=== PATIENT | female | born 1955 | race Hispanic/Latino ===

== ENCOUNTER 2020-01-18 08:17 | Inpatient (IN) | payer MEDICARE, OTHER ==
[2020-01-18] MEDS ORDERED: Ondansetron PF 4 MG/2 ML Vial ONE ×2 (08:25→09:34)
[2020-01-18 08:58] LABS: #Basophils 0.1 thou/uL (0.0-0.2); #Eosinphils 0.2 thou/uL (0.0-0.7); #Lymphocytes 3.1 thou/uL (1.20-3.40); #Monocytes 0.6 thou/uL (0.11-0.59); #Neutrophils 10.8 thou/uL (1.40-6.50); %Basophils 0.7 % (0.0-1.0); %Eosinophils 1.2 % (0.0-10.0); %Lymphocytes 21.1 % (21.0-51.0); %Monocytes 4.1 % (0.0-10.0); %Neutrophils 72.9 % (42.0-75.0); Hemoglobin 10.9 g/dL (12.0-16.0); Mean Corpuscular HGB CONC 33.2 g/dL (32.0-36.0); Mean Corpuscular Hemoglobin 31.2 pg (27.0-31.0); Mean Corpuscular Volume 94.1 fL (78.0-98.0); Mean Platelet Volume 7.8 fL (7.4-10.4); Platelet Count 374 thou/uL (130-400); White Blood Cell (WBC) Count 14.8 thou/uL (4.8-10.8)
[2020-01-18] MEDS ORDERED: Morphine 4 MG/ML VIAL ONE (09:00)
[2020-01-18 09:02] LABS: ALT (SGPT) 8 U/L (8-55); AST (SGOT) 13 U/L (5-34); Albumin 3.6 g/dL (3.4-4.8); Alkaline Phosphatase 136 U/L (40-110); Anion Gap 16 mmol/L (10-20); BUN (Urea Nitrogen) 46 mg/dL (9.8-20.1); Bilirubin, Total 0.2 mg/dL (0.2-1.2); Calc. Creatinine Clearance 0 mL/min (70-130); Calcium 8.4 mg/dL (7.8-10.44); Carbon Dioxide 16 mmol/L (23-31); Chloride 110 mmol/L (98-107); Estimated GFR-MDRD 20; Globulin 3.4 g/dL (2.4-3.5); Glucose 249 mg/dL (80-115); Potassium 4.6 mmol/L (3.5-5.1); Sodium 137 mmol/L (136-145)
--- NOTE | 2020-01-18 09:08 | RAD ---
Exam: Chest one view HISTORY:Cough. Comparison: 01/01/2017 FINDINGS: Cardiac silhouette: Normal Aorta: Unremarkable Pulmonary vessels: Normal Costophrenic angles: Clear LUNGS: Scattered interstitial opacities. More focal opacity is noted in the right perihilar region, l ikely representing a lower lobe infiltrate. Pneumothorax: None Osseous abnormalities: None IMPRESSION: Focal opacity in the right lower lobe is suspected. 2 view chest radiograph would be bene ficial
[2020-01-18] MEDS ORDERED: Azithromycin 500 MG VIAL ONE (09:21)
[2020-01-18] MEDS ORDERED: Cefepime 1 GM VIAL ONE (09:21)
[2020-01-18 09:29] LABS: CKMB 3.8 ng/mL (0-6.6)
[2020-01-18 09:38] LABS: CK (CPK) 58 U/L (29-168); Lipase 136 U/L (8-78)
[2020-01-18] MEDS ORDERED: Enoxaparin Sodium 60 MG/0.6 ML SYRINGE ONE (09:52)
[2020-01-18] MEDS ORDERED: Aspirin Chewable 81 MG TAB ONE (09:52)
[2020-01-18] MEDS ORDERED: Metoclopramide HCl 10 MG/2 ML VIAL ONE (09:58)
[2020-01-18] MEDS ORDERED: Furosemide 40 MG/4 ML VIAL ONE (10:15)
[2020-01-18] MEDS ORDERED: Lorazepam 2 MG/ML VIAL ONE (10:15)
[2020-01-18] MEDS ORDERED: Nitroglycerin 50 MG/250 ML BOT 250 ML ONE (10:47)
[2020-01-18 10:58] LABS: Analyzer IN Cardio ER; Base Excess (BEa) -15.9 mEq/L (-2.0 to +3.0); CO2 Tension 42.4 mmHg (35.0-45.0); Calcium, Ionized (arterial) 1.16 mmol/L (1.12-1.30); Carboxyhemoglobin (COHb) 0.2 gm% (0.0-3.0); Hemoglobin (Hb) 11.4 g/dL (12.0-16.0); Potassium - ABG Lab 5.07 mmol/L (3.70-5.30)
[2020-01-18 11:03] LABS: O2 Tension (PaO2), arterial 56.7 mmHg (> 80.0)
[2020-01-18 11:04] LABS: Puncture Site RRA
[2020-01-18 11:13] LABS: SARS-CoV-2 NAA Rapid Test Not Detected (NotDetected)
[2020-01-18 11:48] LABS: Actual Bicarbonate (HCO3a) 13.2 mEq/L (22-28); Analyzer IN Cardio ER; Base Excess (BEa) -14.5 mEq/L (-2.0 to +3.0); CO2 Tension 37.4 mmHg (35.0-45.0); Calcium, Ionized (arterial) 1.14 mmol/L (1.12-1.30); Carboxyhemoglobin (COHb) 0.3 gm% (0.0-3.0); Hemoglobin (Hb) 11.6 g/dL (12.0-16.0); O2 Tension (PaO2), arterial 78.9 mmHg (> 80.0); Potassium - ABG Lab 5.29 mmol/L (3.70-5.30)
[2020-01-18 11:49] LABS: Puncture Site RRA; pH, Arterial 7.17 (7.35-7.45)
[2020-01-18] MEDS ORDERED: Rocuronium Bromide 10 MG/ML (10ML VIAL) ONE (11:52)
[2020-01-18] MEDS ORDERED: Propofol 500 MG/50 ML VIAL ONE (11:52)
[2020-01-18] MEDS ORDERED: niCARdipine 20MG In NaCl 20 MG/200 ML BAG ONE (12:32)
--- NOTE | 2020-01-18 12:41 | RAD ---
Exam: Chest one view HISTORY:Status post intubation Comparison: 01/18/2020 FINDINGS: Cardiac silhouette: Normal Aorta: Unremarkable Pulmonary vessels: Normal Costophrenic angles: Clear LUNGS: Persistent lung parenchymal opacification Lines and tubes: Interval placement of endotracheal tube terminating at the level of clavicles. Nasog astric tube terminates at the level of the gastric cardia. Pneumothorax: None Osseous abnormalities: None IMPRESSION: 1. Interval placement of endotracheal and nasogastric tube. Otherwise, no change.
[2020-01-18] MEDS ORDERED: Dextrose 50% Abboject 50 ML SYRINGE SLOW IVP PRN (13:20)
[2020-01-18] MEDS ORDERED: Nitroglycerin 50 MG/250 ML BOT 250 ML IVPB SCH (13:20)
[2020-01-18] MEDS ORDERED: HumaLOG 300 UNITS/3 ML VIAL SC PRN (13:20)
[2020-01-18] MEDS ORDERED: Dextrose 5% in Water 1,000 ML IV PRN (13:20)
[2020-01-18] MEDS ORDERED: hydrALAZINE 20 MG/ML VIAL SLOW IVP PRN (13:20)
[2020-01-18] MEDS ORDERED: Morphine 2 MG/ML VIAL SLOW IVP PRN (13:23)
[2020-01-18] MEDS ORDERED: Propofol BOLUS 1,000 MG/100 ML VIAL IV PRN (13:23)
[2020-01-18] MEDS ORDERED: Fentanyl BOLUS 250 ML IVPB PRN (13:23)
[2020-01-18] MEDS ORDERED: DISCONTINUE PREVIOUS NARCOTIC PAIN MEDICATIONS AND BENZODIAZEPINES FS SCH (13:23)
--- NOTE | 2020-01-18 13:46 | HP ---
PRIMARY CARE PHYSICIAN: Patient's primary care, she says she goes to the [facility]. She cannot remember the name of her physician. CHIEF COMPLAINT: Shortness of breath and coughing and congested. HISTORY OF PRESENT ILLNESS: Ms. Parra is a very pleasant 64-year-old female, who has a history of hypertension and diabetes mellitus. She is currently on BiPAP and therefore the history of present illness is very limited and she says that she is "real tired", but she says that she has been coughing and congested for about the past month and has been getting progressively worse. She also notes some pain in her chest. It is in the center lower part of the chest, which is worse with coughing and she says that this morning her symptoms got much worse. She says that she was having extreme trouble breathing and also noted some trouble waking up through the night with difficulty breathing and saying that for the past two nights, she has had to sleep on several different pillows. She also said that the pain in her chest started at rest. It was nonradiating and only associated with some shortness of breath. She did have some nausea and vomited once, but denies having any diarrhea. She came to the ER for evaluation, where she was found to have bilateral pulmonary infiltrates, but there were more dense infiltrates in the right base. She was found to be hypoxic on room air and also had an elevated troponin. However, there were no significant EKG changes. She was placed on BiPAP and is being admitted for further evaluation. REVIEW OF SYSTEMS: All systems are reviewed and are negative except for that mentioned in the history of present illness. PAST MEDICAL HISTORY: Significant for diabetes mellitus, chronic kidney disease, hypertension. PAST SURGICAL HISTORY: She has had her gallbladder removed. ALLERGIES: NO KNOWN DRUG ALLERGIES. SOCIAL HISTORY: She is single. She has 4 children. She says she smokes marijuana every day and she denies any alcohol use. She denies any tobacco cigarettes. Her daughter, Maribel Palomino is her surrogate decision maker and oldest daughter. She would like to be a full code. FAMILY HISTORY: No history of any heritable diseases. CURRENT MEDICATIONS: Include; 1. Sertraline 100 mg p.o. daily. 2. Lisinopril 20 mg daily. 3. Nifedipine extended release 60 mg daily. 4. Trazodone 100 mg p.o. daily. 5. Glyburide 5 mg p.o. daily. 6. Metformin 500 mg daily. PHYSICAL EXAMINATION: GENERAL: She is alert and oriented. She does appear ill. She is currently on BiPAP. She is well developed, well nourished. VITAL SIGNS: Blood pressure is 156/89, heart rate 113, respiratory rate of 24, and temperature is 98.1. HEENT: Her pupils are equal, round, and reactive. Extraocular muscles are intact. Her sclerae anicteric. NECK: There is no adenopathy. No bruits. LUNGS: She has rales at the right base. There is no wheezing. No rhonchi. CARDIOVASCULAR: Heart rate is regular, but tachycardic. There was quite a bit of ambient noise and I was not able to appreciate any murmurs, clicks, or rubs. ABDOMEN: Soft, nontender, nondistended. Positive for bowel sounds. There is no rebound. No guarding. No organomegaly. EXTREMITIES: There is no edema. No calf tenderness. No joint effusions. NEUROLOGIC: Grossly nonfocal. SKIN AND INTEGUMENT: No significant skin changes. No rash. LAB RESULTS: Sodium is 137, potassium 4.6, chloride is 110, CO2 is 16, BUN of 46, creatinine 2.4, glucose is 249. Troponin is 1.195. ProBNP is 1308. Her white blood cell count is 14.8, hemoglobin 10.9, hematocrit 32.9, platelet count is 374. She had a rapid COVID screen which was negative. On her ABG, the initial ABGs, the pH is 7.1 83.2. Repeat gas showed after being on BiPAP, pH is 7.17, pCO2 of 37, PO2 of 78.9. ASSESSMENT: 1. This is a 64-year-old female, who has a history of hypertension and diabetes, who presents to the emergency room with acute hypoxic respiratory failure likely as a result of community-acquired right lower lobe pneumonia. Her COVID screen was negative. She also has an elevated troponin as well as an elevated white blood cell count of 14.9, and she was tachycardic and therefore meets criteria for sepsis as well. She will be admitted to the ICU, started on empiric antibiotics for community-acquired pneumonia. The electric motor tester has already been consulted, and based on the slow improvement in her ABG, the plan will be to intubate the patient. Blood cultures have already been obtained. Sputum cultures will be requested. 2. Elevated troponin. I suspect this is likely the result of an NSTEMI type 2 due to demand ischemia from the pneumonia. She did have some ST-segment depressions in V3 through V6, and for this reason, we will go ahead and consult Cardiology. When she is more stable, additional studies may be warranted. In the meantime, we will check an echo and place her on Lovenox. She has already been given an aspirin in the ER. 3. Diabetes mellitus. We will go ahead and just place her on a low-dose long-acting insulin as well as a sliding scale. 4. Chronic kidney disease. We will monitor her trend in her BUN and creatinine, and if necessary consult Nephrology. We will renal dose all relevant medications. Job ID: [id number]
[2020-01-18] MEDS: HumaLOG 300 UNITS/3 ML VIAL SC PRN ×2 (14:23→16:05)
[2020-01-18] MEDS: Lorazepam 2 MG/ML VIAL SLOW IVP PRN (14:25)
[2020-01-18] MEDS: Propofol 1,000 MG/100 ML VIAL IV PRN ×3 (14:28→20:34)
--- NOTE | 2020-01-18 14:39 | CON ---
DATE OF CONSULTATION: REASON FOR CONSULTATION: Elevated troponin and abnormal EKG. Total critical care time 40 minutes. HISTORY OF PRESENT ILLNESS: Ms. Parra is an unfortunate 64-year-old woman who has not been seen by Cardiology in the past. She recently presented with increased shortness of breath. The history is obtained from the ER doctor in addition to Dr. Mcqueen's note. Her main complaint was shortness of breath, coughing and congestion. She did complain of chest pain which is worse with coughing. EKG was felt to be abnormal with inverted T-waves inferiorly and Q-waves inferiorly as well. Again , she has no previous history of underlying coronary artery disease, but does have history of diabetes mellitus and chronic kidney disease. During my arrival, patient continued to have increased shortness of breath with tachypnea and required intubation. PAST MEDICAL HISTORY: Diabetes mellitus, chronic kidney disease, hypertension. SURGICAL HISTORY: Cholecystectomy. ALLERGIES: NONE. SOCIAL HISTORY: She does have four children. She is currently single. Negative alcohol use. Positive marijuana use. HOME MEDICATIONS: Include 1. Lisinopril. 2. Sertraline. 3. Nifedipine. 4. Trazodone. 5. Glyburide. 6. Metformin. REVIEW OF SYSTEMS: Unobtainable. PHYSICAL EXAMINATION: GENERAL: She does appear older than stated age. She is currently intubated and sedated. VITAL SIGNS: Blood pressure 222/112, heart rate 112, respirations 20. NEUROLOGIC: The patient is alert and oriented x3 with no focal neurologic deficits. HEENT: Sclerae without icterus. Mouth has moist mucous membranes with normal pallor. NECK: No JVD. Carotid upstroke brisk. No bruits bilaterally. LUNGS: Clear to auscultation with unlabored respirations. BACK: No scoliosis or kyphosis. CARDIAC: Regular rate and rhythm with normal S1 and S2. No S3 or S4 noted. No significant rubs, murmurs, thrills, or gallops noted throughout the precordium. PMI is not displaced. There is no parasternal heave. ABDOMEN: Soft, nontender, nondistended. No peritoneal signs present. No hepatosplenomegaly. No abnormal striae. EXTREMITIES: 2+ femoral and 2+ dorsalis pedis pulses. No cyanosis, clubbing, or edema. SKIN: No gross abnormalities. PERTINENT LABORATORY DATA: Hemoglobin 10.9. Creatinine 2.4 with a GFR of 20, previous creatinine dated 08/21/2016 of 1.27. EKG shows normal sinus rhythm with inferior infarct, age old; ST-T wave changes suggesting ischemia, but cannot exclude inferior wall aneurysm. Peak troponin 1.1. IMPRESSION: 1. Respiratory failure. 2. Congestive heart failure with BNP of 1030. 3. Renal insufficiency. RECOMMENDATIONS: Ms. Parra's history is more suggestive of pleurisy from recent shortness of breath and cough. Her troponin is elevated and may be related to demand ischemia. At this point, she has no acute ST-T wave changes suggesting infarction. We would recommend aggressive blood pressure management given marked hypertension. We will add Cardene in addition to IV nitroglycerin. Dr. Henry has been consulted. I have discussed case with Dr. Henry. We will continue to rule out by CKs and troponins. We will recommend echo with Doppler to assess LVEF, any valvular dysfunction. ADDENDUM FU troponin of 4.0 6 hours after presentation. Matt related to demand ischemia. Treat BP and HR aggressively for now Job ID: [id number] MTDD
[2020-01-18 15:27] LABS: Critical Call Chem Troponin I 0; Troponin I 4.341 ng/mL (< 0.028)
[2020-01-18] MEDS: fentaNYL Citrate/PF 2,000 MCG in Sodium Chloride 0.9% 60 ML IV SCH (16:36)
--- NOTE | 2020-01-18 18:06 | CON ---
DATE OF CONSULTATION: 01/18/2020 HISTORY OF PRESENT ILLNESS: Ms. Parra is a woman who presented to the emergency room with chest discomfort, nausea, vomiting, shortness of breath. She is found to have severe metabolic acidosis. The nurse practitioner called me. A followup blood gas on BiPAP showed only minimal improvement in her pH, so I recommended intubation. This has been done successfully by the time I saw her. No other history is available. PAST MEDICAL HISTORY: Remarkable for diabetes, hypertension, as well as chronic kidney disease. PAST SURGICAL HISTORY: Remarkable for cholecystectomy. SOCIAL HISTORY: She smokes marijuana. Does not smoke cigarettes. Does not drink alcohol. REVIEW OF SYSTEMS: Not obtainable when I saw her. PHYSICAL EXAMINATION: GENERAL: She is extremely hypertensive when I saw her in the emergency room with blood pressure in the 240 range and a diastolic in the 140 range. She is on nitroglycerin drip. I recommended to switch to Cardene. VITAL SIGNS: She is currently afebrile. Heart rates in the 90s, respiratory rates in the teens, oximetry is 100%, blood pressure 141/64. LUNGS: Remarkable for coarse equal breath sounds. HEART: Regular rhythm. ABDOMEN: Soft and nontender. EXTREMITIES: Without clubbing, cyanosis, or edema. LABORATORY DATA: Prior to intubation, her pH was 7.17, CO2 of 37, PO2 of 79, BUN 46, and creatinine 2.4. Troponin was 1.1. BNP was 1308. White count 14.8. There manual differential. Hemoglobin is 10.9, platelets 374. Maldonado virus screen is negative. IMAGING STUDIES: Chest radiograph shows early alveolar infiltrate in the right lower lobe, diffuse increase in interstitial markings. IMPRESSION: Metabolic acidosis is likely multifactorial. There is no urinalysis to determine whether or not she has proteinuria with her diabetes. This should be done at some point. Broad antimicrobial therapy has been initiated with Rocephin and Zithromax. Sedation protocol has been started. She will need to be followed by Nephrology at some point. I would expect her creatinine to go up with blood pressure control. Discussed case with Dr. Crane. Even though her EKG is abnormal, taking her to the maintenance shop laborer might lead to irreversible renal failure. Medical management with mechanical ventilation I think is the best option at this point in time. CRITICAL CARE TIME: 30 minutes. Job ID: [id number] MTDD
[2020-01-18 18:09] LABS: Troponin I 31.747 ng/mL (< 0.028)
[2020-01-18 19:44] LABS: Prothrombin Time 13.6 sec (12.0-14.7)
[2020-01-18 19:45] LABS: PTT 22.7 sec (22.9-36.1)
[2020-01-18 20:26] LABS: Troponin I 68.154 ng/mL (< 0.028)
[2020-01-18] MEDS: Famotidine/PF 20 mg/2ml Vial SLOW IVP SCH (20:34)
[2020-01-18] MEDS: Sodium Chloride 0.9% 1,000 ML IV SCH (23:11)
[2020-01-19 04:12] LABS: #Basophils 0.1 thou/uL (0.0-0.2); #Eosinphils 0.1 thou/uL (0.0-0.7); #Lymphocytes 3.3 thou/uL (1.20-3.40); #Monocytes 0.7 thou/uL (0.11-0.59); #Neutrophils 9.8 thou/uL (1.40-6.50); %Basophils 0.4 % (0.0-1.0); %Eosinophils 0.7 % (0.0-10.0); %Lymphocytes 23.6 % (21.0-51.0); %Monocytes 4.9 % (0.0-10.0); %Neutrophils 70.4 % (42.0-75.0); Hemoglobin 9.1 g/dL (12.0-16.0); Mean Corpuscular HGB CONC 34.1 g/dL (32.0-36.0); Mean Corpuscular Hemoglobin 31.8 pg (27.0-31.0); Mean Corpuscular Volume 93.2 fL (78.0-98.0); Platelet Count 265 thou/uL (130-400); RBC Distribution Width 13.3 % (11.5-14.5); Red Blood Cell (RBC) Count 2.85 mill/uL (4.20-5.40); White Blood Cell (WBC) Count 13.8 thou/uL (4.8-10.8)
[2020-01-19 04:12] LABS: INR-International Normal Ratio 1.1; Prothrombin Time 14.4 sec (12.0-14.7)
[2020-01-19 04:13] LABS: PTT 69.8 sec (22.9-36.1)
[2020-01-19 04:28] LABS: Anion Gap 15 mmol/L (10-20); BUN (Urea Nitrogen) 50 mg/dL (9.8-20.1); Calc. Creatinine Clearance 19 mL/min (70-130); Calcium 7.8 mg/dL (7.8-10.44); Carbon Dioxide 13 mmol/L (23-31); Chloride 115 mmol/L (98-107); Estimated GFR-MDRD 19; Glucose 89 mg/dL (80-115); Potassium 4.3 mmol/L (3.5-5.1); Sodium 139 mmol/L (136-145)
--- NOTE | 2020-01-19 08:01 | RAD ---
Exam: Chest one view HISTORY:Status post intubation. Comparison: 01/18/2020 FINDINGS: Lines and tubes: Stable endotracheal and nasogastric tube Cardiac silhouette: Normal Aorta: Unremarkable Pulmonary vessels: Normal Costophrenic angles: Clear LUNGS: Persistent lung parenchymal opacification. Pneumothorax: None Osseous abnormalities: No significant interval change IMPRESSION: No acute cardiopulmonary process.
[2020-01-19] MEDS: Sodium Chloride 0.9% 1,000 ML IV SCH (08:06)
--- NOTE | 2020-01-19 08:34 | PRG ---
DATE OF SERVICE: 01/19/2020 SUBJECTIVE: Irina Parra remains mechanically ventilated, sedated. OBJECTIVE: VITAL SIGNS: Heart rate is in the 60s, blood pressure 113/65, respiratory rate is 24. LUNGS: Remarkable for coarse equal breath sounds. HEART: Regular rhythm. ABDOMEN: Soft. EXTREMITIES: Without edema. LABORATORY DATA: White count 13.8, hemoglobin 9.1, and platelets 265. Sodium 139, potassium 4.3, chloride 115, bicarb 13, BUN 50, and creatinine 2.52, it was 2.40 yesterday. Troponins gone up to 68. IMPRESSION: 1. Pneumonia. 2. Respiratory failure. 3. Myocardial infarction by troponin. 4. Accelerated hypertension yesterday with improved blood pressure today. 5. Acute on chronic kidney disease. 6. Chest radiograph today more clearly shows her infiltrate. 7. There is no blood gas reported yet. We will review this. Critical care time 30 min. Job ID: [id number] MTDD
--- NOTE | 2020-01-19 08:41 | PDOC.HOSPP ---
- Subjective Encounter Date: 01/19/20 Encounter Time: 08:40 Subjective: Ms. Parra was seen today in follow-up of respiratory failure and sepsis. She is intubated. She will squeeze your hand on command. - Objective Vital Signs & Weight: Vital Signs (12 hours) Temp Pulse Resp BP 01/19/20 06:59 63 113/65 01/19/20 06:17 24 H 01/19/20 04:00 21 H 01/19/20 03:00 97.9 F Weight Admit Weight 121 lb 14.65 oz Weight 121 lb 14.65 oz Most Recent Monitor Data Heart Rate from ECG 71 NIBP 154/86 NIBP BP-Mean 108 Respiration from ECG 24 SpO2 100 I&O: 01/18/20 01/19/20 01/20/20 06:59 06:59 06:59 Intake Total 1078 Output Total 1060 92 Balance 18 -92 Result Diagrams: 01/19/20 03:36 01/19/20 03:36 Hospitalist ROS - Medication Medications: Active Medications Generic Name Dose Route Start Last Admin Trade Name Freq PRN Reason Stop Dose Admin Famotidine 20 mg 01/18/20 21:00 01/18/20 20:34 Pepcid SLOW IVP 20 mg 2100 ALEJANDRA Administration Fentanyl Citrate 2,000 mcg/ 100 mls @ 0 mls/hr 01/18/20 13:23 01/18/20 16:36 Sodium Chloride IV 02/17/20 13:23 100 mls INF ALEJANDRA Administration Protocol Per Protocol Insulin Human Lispro 0 units 01/18/20 13:20 01/18/20 16:05 Humalog SC 8 unit .MODERATE SLIDING SC PRN Administration Moderate Correctional Scale Lorazepam 2 mg 01/18/20 13:23 01/18/20 14:25 Ativan SLOW IVP 02/17/20 13:23 2 mg Q1H PRN Administration Breakthrough agitation Propofol 1,000 mg 01/18/20 13:23 01/18/20 20:34 Diprivan IV 02/17/20 13:23 1,000 mg INF PRN Administration TO ACHIEVE GOAL RASS Protocol - Exam Eye: PERRL, anicteric sclera Heart: RRR, no murmur, no gallops, no rubs, normal peripheral pulses Respiratory: rales (rales at the bases, and coarse breath sounds) Gastrointestinal: soft, non-tender, non-distended, normal bowel sounds, no palpable masses Extremities: no cyanosis, no clubbing, 1+ LE edema Hosp A/P (1) Acute respiratory failure with hypoxemia Code(s): J96.01 - ACUTE RESPIRATORY FAILURE WITH HYPOXIA Status: Acute (2) Septic shock Code(s): A41.9 - SEPSIS, UNSPECIFIED ORGANISM; R65.21 - SEVERE SEPSIS WITH SEPTIC SHOCK Status: Acute (3) Pneumonia Code(s): J18.9 - PNEUMONIA, UNSPECIFIED ORGANISM Status: Acute (4) Chronic kidney disease, stage 4 (severe) Code(s): N18.4 - CHRONIC KIDNEY DISEASE, STAGE 4 (SEVERE) Status: Chronic (5) Diabetes mellitus type 2 in nonobese Code(s): E11.9 - TYPE 2 DIABETES MELLITUS WITHOUT COMPLICATIONS Status: Chronic (6) Hypertension Code(s): I10 - ESSENTIAL (PRIMARY) HYPERTENSION Status: Chronic (7) Metabolic acidosis Code(s): E87.2 - ACIDOSIS Status: Acute - Plan * Acute respiratory failure with hypoxemia- continue IV antibiotics, and vent support as per PCCM * Elevated troponins- this may be due to demand ischemia, however the level continues to rise- ECHO is being done now and await Cardiology input * Continue Heparin drip * DM- blood glucose is stable- continue SSI * Metabolic acidosis- due to sepsis- will change to Bicarb drip, given the renal insufficiency as well *
--- NOTE | 2020-01-19 08:55 | PDOC.EVN ---
Event Note - Event Note Event Note: The patient's arrived. I explained his clinicall condition. She made the desicion that she would not want him to be a full code at this time, and would not want chest compressions ect. We will change his code status to DNR. Palliative care and Pastoral Care has been consulted.
[2020-01-19] MEDS ORDERED: Prevnar 13-Val Conj/PF 0.5 ML SYRINGE IM ONE (09:00)
[2020-01-19] MEDS ORDERED: Enoxaparin Sodium 40 MG/0.4 ML SYRINGE SC SCH (09:00)
[2020-01-19] MEDS: cefTRIAXone\\ROCEPHIN 1 GM in Sodium Chloride 0.9% 100 ML IVPB SCH (09:49)
[2020-01-19] MEDS: Propofol 1,000 MG/100 ML VIAL IV PRN (11:23)
[2020-01-19] MEDS: Azithromycin 500 MG in Sodium Chloride 0.9% 250 ML 250 ML IVPB SCH (11:26)
--- NOTE | 2020-01-19 15:16 | CON ---
DATE OF CONSULTATION: 01/19/2020 TOTAL CRITICAL CARE TIME: 35 minutes. SUBJECTIVE: Ms. Parra is currently intubated and sedated. She does awaken to voice. She is off IV blood pressure medications. She required IV nitroglycerin in addition to Cardene for blood pressure support yesterday. Blood pressure was in the 200s/120s. Heart rate was also in the one teens. EKG at that time did show Q-waves inferiorly with inverted T-waves noted inferiorly. Followup EKG once her blood pressure and heart rate were stable did show resolution. She does have Q-waves noted inferiorly. OBJECTIVE: VITAL SIGNS: Blood pressure 113/62, pulse 64, and temperature afebrile. LUNGS: Minimal crackles bilaterally. HEART: Regular rate and rhythm. ABDOMEN: Soft, nontender, and nondistended. EXTREMITIES: No edema. PERTINENT LABORATORY DATA: Hemoglobin 9.1. Peak troponin 68. IMPRESSION: 1. Pneumonia. 2. Non-Q-wave myocardial infarction. 3. Diabetes mellitus. 4. Respiratory failure. RECOMMENDATIONS: The patient did have marked increase in troponin. This may be due to demand ischemia versus unstable plaque. Her EKG was not consistent with acute VA. Based on her symptoms from Dr. Mcqueen's note, her symptoms were felt to be pleuritic. At this point, would continue with conservative therapy. She is currently on heparin in addition to nitroglycerin and aspirin. Certainly, if angiography was performed yesterday or even today with a GFR of 19, she would likely develop a worsening renal function and possible renal failure. Given that she is stable, we will continue current course. Job ID: [id number]
[2020-01-19] MEDS: Lorazepam 2 MG/ML VIAL SLOW IVP PRN (17:49)
[2020-01-19] MEDS: fentaNYL Citrate/PF 2,000 MCG in Sodium Chloride 0.9% 60 ML IV SCH (18:35)
[2020-01-20 04:19] LABS: Eosinophils 1 % (0-10); Hemoglobin 9.1 g/dL (12.0-16.0); Lymphocytes 31 % (21-51); MDiff Complete? YES; Mean Corpuscular HGB CONC 33.9 g/dL (32.0-36.0); Mean Corpuscular Hemoglobin 31.7 pg (27.0-31.0); Mean Corpuscular Volume 93.5 fL (78.0-98.0); Mean Platelet Volume 7.7 fL (7.4-10.4); Neutrophil 68 % (42-75); Platelet Count 273 thou/uL (130-400); RBC Distribution Width 13.3 % (11.5-14.5); Red Blood Cell (RBC) Count 2.86 mill/uL (4.20-5.40); White Blood Cell (WBC) Count 9.4 thou/uL (4.8-10.8)
[2020-01-20 04:45] LABS: Anion Gap 15 mmol/L (10-20); BUN (Urea Nitrogen) 43 mg/dL (9.8-20.1); Calc. Creatinine Clearance 18 mL/min (70-130); Calcium 8.1 mg/dL (7.8-10.44); Carbon Dioxide 13 mmol/L (23-31); Chloride 114 mmol/L (98-107); Estimated GFR-MDRD 17; Glucose 119 mg/dL (80-115); Potassium 3.9 mmol/L (3.5-5.1); Sodium 138 mmol/L (136-145)
[2020-01-20] MEDS: cefTRIAXone\\ROCEPHIN 1 GM in Sodium Chloride 0.9% 100 ML IVPB SCH (07:26)
--- NOTE | 2020-01-20 07:26 | RAD ---
CHEST 1 VIEW: INDICATION: History of pneumonia and intubation. COMPARISON: Prior exam dated 01/19/2020. IMPRESSION: Right lower lobe pneumonia, intubation, and gastric catheter placement unchanged. No pneumothorax is evident. POS: BH
[2020-01-20] MEDS: Famotidine/PF 20 mg/2ml Vial SLOW IVP SCH ×3 (07:28→20:41)
[2020-01-20 08:04] LABS: Base Excess (BEa) -7.5 mEq/L (-2.0 to +3.0); Calcium, Ionized (arterial) 1.14 mmol/L (1.12-1.30); Carboxyhemoglobin (COHb) 0.2 gm% (0.0-3.0); Hemoglobin (Hb) 10.6 g/dL (12.0-16.0); O2 Tension (PaO2), arterial 101.2 mmHg (> 80.0); Potassium - ABG Lab 3.77 mmol/L (3.70-5.30); pH, Arterial 7.53 (7.35-7.45)
--- NOTE | 2020-01-20 08:11 | PDOC.HOSPP ---
- Subjective Encounter Date: 01/20/20 Encounter Time: 08:09 Subjective: Ms. Parra was seen today in follow-up of respiratory failure. She is intubated and sedated. - Objective Vital Signs & Weight: Vital Signs (12 hours) Temp Pulse BP Pulse Ox 01/20/20 07:47 69 144/74 H 01/20/20 07:00 98.8 F 01/20/20 06:59 100 01/20/20 02:48 65 122/67 Weight Admit Weight 121 lb 14.656 oz Weight 121 lb 14.65 oz Most Recent Monitor Data Heart Rate from ECG 67 NIBP 128/71 NIBP BP-Mean 90 Respiration from ECG 24 SpO2 100 I&O: 01/19/20 01/20/20 01/21/20 06:59 06:59 06:59 Intake Total 1078 992 328 Output Total 1060 382 35 Balance 18 610 293 Result Diagrams: 01/20/20 03:19 01/20/20 03:19 Additional Labs: Accuchecks 01/19/20 01/18/20 01/18/20 18:42 20:56 16:09 POC Glucose 113 H 118 H 315 H 01/18/20 14:24 POC Glucose 402 H Hospitalist ROS - Medication Medications: Active Medications Generic Name Dose Route Start Last Admin Trade Name Freq PRN Reason Stop Dose Admin Famotidine 20 mg 01/18/20 21:00 01/20/20 07:28 Pepcid SLOW IVP Not Given 2100 ALEJANDRA Azithromycin 500 mg/ Sodium 250 mls @ 250 mls/hr 01/19/20 10:00 01/19/20 11: 26 Chloride IVPB 250 mls 1000 ALEJANDRA Administration Ceftriaxone Sodium 1 gm/ 100 mls @ 200 mls/hr 01/19/20 09:00 01/20/20 07:26 Sodium Chloride IVPB 100 mls 0900 ALEJANDRA Administration Fentanyl Citrate 2,000 mcg/ 100 mls @ 0 mls/hr 01/18/20 13:23 01/19/20 18:35 Sodium Chloride IV 02/17/20 13:23 100 mls INF ALEJANDRA Administration Protocol Per Protocol Insulin Human Lispro 0 units 01/18/20 13:20 01/18/20 16:05 Humalog SC 8 unit .MODERATE SLIDING SC PRN Administration Moderate Correctional Scale Lorazepam 2 mg 01/18/20 13:23 01/19/20 17:49 Ativan SLOW IVP 02/17/20 13:23 2 mg Q1H PRN Administration Breakthrough agitation Propofol 1,000 mg 01/18/20 13:23 01/19/20 11:23 Diprivan IV 02/17/20 13:23 1,000 mg INF PRN Administration TO ACHIEVE GOAL RASS Protocol - Exam Eye: PERRL, anicteric sclera Heart: RRR, no murmur, no gallops, no rubs, normal peripheral pulses Respiratory: rales (at the bases and coarse breath sounds) Gastrointestinal: soft, normal bowel sounds Extremities: no cyanosis, 1+ LE edema (in the upper extremities and lower extremities) Hosp A/P (1) Acute respiratory failure with hypoxemia Code(s): J96.01 - ACUTE RESPIRATORY FAILURE WITH HYPOXIA Status: Acute (2) Septic shock Code(s): A41.9 - SEPSIS, UNSPECIFIED ORGANISM; R65.21 - SEVERE SEPSIS WITH SEPTIC SHOCK Status: Acute (3) Pneumonia Code(s): J18.9 - PNEUMONIA, UNSPECIFIED ORGANISM Status: Acute (4) Chronic kidney disease, stage 4 (severe) Code(s): N18.4 - CHRONIC KIDNEY DISEASE, STAGE 4 (SEVERE) Status: Chronic (5) Diabetes mellitus type 2 in nonobese Code(s): E11.9 - TYPE 2 DIABETES MELLITUS WITHOUT COMPLICATIONS Status: Chronic (6) Hypertension Code(s): I10 - ESSENTIAL (PRIMARY) HYPERTENSION Status: Chronic (7) Metabolic acidosis Code(s): E87.2 - ACIDOSIS Status: Acute (8) NSTEMI (non-ST elevated myocardial infarction) Code(s): I21.4 - NON-ST ELEVATION (NSTEMI) MYOCARDIAL INFARCTION Status: Acute - Plan * Acute respiratory failure with hypoxemia and sepsis- continueRocephin and Azithromycin * Elevated troponins- felt to be demand ischemia- Echo is pending * Continue Heparin drip and Nitro drip * DM- blood glucose is stable- continue SSI * Metabolic acidosis- due to sepsis- continue Bicatb drip, and will consult Nephrology given the acute on chronic kidney injury * Acute on chronic kidney injury- likely from sepsis- will consult Nephrology to help manage * HTN- blood pressure has improved * Further recommendations per PCCM and Cardiology
[2020-01-20] MEDS: Sodium Bicarbonate 150 MEQ in Dextrose 5% in Water 1,000 ML IV SCH ×2 (08:44→20:36)
[2020-01-20 09:09] LABS: Creatinine, Urine 70.46 mg/dL (47-110)
[2020-01-20] MEDS: Azithromycin 500 MG in Sodium Chloride 0.9% 250 ML 250 ML IVPB SCH (09:16)
[2020-01-20] MEDS: Lorazepam 2 MG/ML VIAL SLOW IVP PRN (09:44)
--- NOTE | 2020-01-20 10:28 | ULT ---
RENAL ULTRASOUND HISTORY: Renal failure COMPARISON: CT of the abdomen and pelvis dated November 08, 2014 FINDINGS: Right Kidney: Size: The right kidney measured 12.3 x 4.7 x 5.2 cm with a right renal cortical thickness of 1.4 cm Abnormality: Normal cortical echotexture. No hydronephrosis. Left Kidney: Size: The left kidney measured 9.3 x 4.8 x 4.7 cm with a left renal cortical thickness of 1.8 cm Abnormality: Normal cortical echotexture. No hydronephrosis Urinary bladder: Neal catheter is seen within a decompressed bladder. IMPRESSION: No hydronephrosis.
[2020-01-20 10:53] LABS: Puncture Site LRA
--- NOTE | 2020-01-20 11:07 | CON ---
DATE OF CONSULTATION: HISTORY OF PRESENT ILLNESS: Ms. Parra is a 64-year-old female, admitted for acute respiratory failure. She was found to have pneumonia. She was ruled out for COVID-19. We are now being consulted for her acute kidney injury/chronic renal failure. Of interest, urinalysis did show proteinuria with her. Review of systems currently not obtainable since the patient is intubated and sedated. However, review of the history shows that she did complain of shortness of breath. PAST MEDICAL HISTORY: Includes; 1. Type-2 diabetes mellitus. 2. Chronic renal failure. 3. History of previous pneumonia. PAST SURGICAL HISTORY: Includes history of cholecystectomy. MEDICATIONS: 1. Azithromycin 500 mg IV daily. 2. Ceftriaxone 1 g IV daily. 3. Isotonic bicarbonate at 75 mL/hr. 4. Famotidine 20 mg IV daily. 5. Fentanyl as directed. 6. The patient is currently on heparin drip. SOCIAL HISTORY: The patient is single, 4 children. She smokes marijuana every day, but denies any alcohol use. She denies any IV drug use. Her surrogate decision maker is her daughter, Maribel Palomino. FAMILY HISTORY: No family history of ESRD. ALLERGIES: NONE. TRAUMA: None. IMMUNIZATION: Up-to-date. HOSPITALIZATIONS: Please see past medical history. PHYSICAL EXAMINATION: VITAL SIGNS: Blood pressure 153/79, heart rate 67, respiratory rate 24, O2 saturation 100%. GENERAL: The patient is sedated, intubated, on ventilator support. SKIN: Adequate turgor. HEENT: Slightly pale conjunctivae. Anicteric sclerae. No neck mass. No carotid bruits. No JVD. CHEST: No deformities. LUNGS: Decreased breath sounds. HEART: Normal sinus rhythm. No murmur. No gallops. No rubs. ABDOMEN: Globular, soft, nontender. No masses. EXTREMITIES: No edema. No deformities. LABORATORY DATA: Laboratories of January 20, 2020; white count 9.4, hemoglobin 9.1, hematocrit 26.8. Sodium 138, potassium 3.9, chloride 114, carbon dioxide 13, BUN 43, creatinine 2.79, GFR 17 mL/minute, glucose 119, calcium 8.1. Troponin-I significantly elevated. Cardiac echo pending. Renal ultrasound pending. Urinalysis shows specific gravity 1.016 with protein of 100, RBCs 7-10, WBCs 7- 10, no pigmented granular cast. ASSESSMENT AND PLAN: 1. Acute kidney injury on top of her chronic renal failure, possibility of a hemodynamically-mediated renal dysfunction. Possibility that she may simply be volume depleted. Currently, on isotonic bicarbonate, which will increase from 75 to 150 mL/hr. In addition, she does have proteinuria, which may suggest underlying diabetic nephropathy. Furthermore, the patient was taking lisinopril prior to the admission and this could be playing a factor in the prerenal azotemia. Agree with conservative management. There is no indication for any dialytic intervention. We are awaiting renal ultrasound. In addition, we will be quantifying the patient's protein excretion by ordering a protein-creatinine ratio. 2. Elevated troponin-I - the patient has NSTEMI. Cardiology is following. 3. Pneumonia/acute respiratory failure, on IV antibiotics. Currently, on ventilator support. Overall, prognosis remains guarded. Job ID: [id number] MTDD
[2020-01-20] MEDS: Propofol 1,000 MG/100 ML VIAL IV PRN ×3 (12:37→20:40)
--- NOTE | 2020-01-20 14:03 | PRG ---
DATE OF SERVICE: 01/20/2020 SUBJECTIVE: Ms. Parra is currently intubated and sedated. She is currently on no IV medicines for blood pressure support. Nephrology has been consulted due to worsening renal function. Chest x-ray did confirm a right lower lobe pneumonia. Overall, LVEF does appear moderately diminished. OBJECTIVE: VITAL SIGNS: Blood pressure 123/74, pulse 60, temperature afebrile. LUNGS: Decreased breath sounds on right versus left. HEART: Regular rate and rhythm. ABDOMEN: Soft, nontender, nondistended. EXTREMITIES: No edema. PERTINENT LABORATORY DATA: Hemoglobin 9.1, creatinine up to 2.75 from 2.52. IMPRESSION: 1. Respiratory failure. 2. Pneumonia. 3. Renal insufficiency. 4. Non-Q-wave myocardial infarction. RECOMMENDATIONS: Ms. Parra's elevated troponin likely related to demand ischemia. She has not had been revascularized in the past. This is less likely to be from an unstable plaque in the primary source. Continue supportive care. Continue heparin overnight and we will discontinue in a.m. Add low-dose Coreg. Avoid HA inhibitor therapy and ARB due to renal insufficiency. May need hydralazine/Imdur if needed. Add aspirin 81 q.a.m. Job ID: [id number]
--- NOTE | 2020-01-20 17:43 | PRG ---
DATE OF SERVICE: 01/20/2020 SUBJECTIVE: Fidel remains sedated, mechanical ventilation. OBJECTIVE: VITAL SIGNS: She is afebrile. Heart rate 63, blood pressure 131/68, respiratory rate 16. LUNGS: Clear anteriorly. HEART: Regular rhythm. ABDOMEN: Soft. LABORATORY DATA: Chest radiograph reviewed by me shows persistence of a right infrahilar alveolar infiltrate. White count 9.4, hemoglobin 9.1, platelets 273. Sodium 138, potassium 3.9, chloride 114, bicarb 13, BUN 43, creatinine 2.75. IMPRESSION: 1. Pneumonia. 2. Respiratory failure. 3. Aiyiz-vq-afdzsel kidney disease. 4. Myocardial infarction. She will continue with ventilatory support. May be able to consider a spontaneous breathing trial tomorrow. CRITICAL CARE TIME: 30 minutes. Job ID: [id number]
[2020-01-20] MEDS: Carvedilol 3.125 MG TAB PO SCH (20:40)
[2020-01-21] MEDS: Sodium Bicarbonate 150 MEQ in Dextrose 5% in Water 1,000 ML IV SCH (00:21)
[2020-01-21 06:42] LABS: Hemoglobin 9.8 g/dL (12.0-16.0); Mean Corpuscular HGB CONC 32.9 g/dL (32.0-36.0); Mean Corpuscular Hemoglobin 31.9 pg (27.0-31.0); Mean Corpuscular Volume 97.1 fL (78.0-98.0); Mean Platelet Volume 7.9 fL (7.4-10.4); Platelet Count 272 thou/uL (130-400); RBC Distribution Width 13.3 % (11.5-14.5); Red Blood Cell (RBC) Count 3.08 mill/uL (4.20-5.40); White Blood Cell (WBC) Count 9.4 thou/uL (4.8-10.8)
[2020-01-21 06:58] LABS: Anion Gap 15 mmol/L (10-20); BUN (Urea Nitrogen) 32 mg/dL (9.8-20.1); Calc. Creatinine Clearance 18 mL/min (70-130); Calcium 8.3 mg/dL (7.8-10.44); Carbon Dioxide 16 mmol/L (23-31); Chloride 111 mmol/L (98-107); Estimated GFR-MDRD 17; Glucose 156 mg/dL (80-115); Potassium 3.9 mmol/L (3.5-5.1); Sodium 138 mmol/L (136-145)
[2020-01-21 07:32] LABS: Eosinophils 1 % (0-10); Lymphocytes 15 % (21-51); MDiff Complete? YES; Monocytes 3 % (0-10); Neutrophil 81 % (42-75); Platelet Morphology Comment Appears Adequate; Polychromasia SLIGHT = 2-3 cells (100X) (0-2/hpf)
[2020-01-21 07:56] LABS: Actual Bicarbonate (HCO3a) 19.2 mEq/L (22-28); Base Excess (BEa) -3.6 mEq/L (-2.0 to +3.0); CO2 Tension 27.9 mmHg (35.0-45.0); Calcium, Ionized (arterial) 1.18 mmol/L (1.12-1.30); Carboxyhemoglobin (COHb) 0.3 gm% (0.0-3.0); Potassium - ABG Lab 3.63 mmol/L (3.70-5.30); pH, Arterial 7.46 (7.35-7.45)
--- NOTE | 2020-01-21 07:58 | RAD ---
XR Chest 1 View Portable History: Ventilated patient Comparison: Radiograph January 20, 2020 Findings: NG tube tip in good position below the clavicles. Enteric tube tip side port at the gastric body. Right middle lobe airspace opacity is similar. Small right effusion. Cardiac silhouette is similar. Impression: Similar examination of the chest.
--- NOTE | 2020-01-21 08:40 | PDOC.HOSPP ---
- Subjective Encounter Date: 01/21/20 Encounter Time: 08:38 Subjective: Ms. Parra was seen today in follow-up of respiratory failure. She is intubated, but sedation has been reduced, and she is awake and following commands. - Objective Vital Signs & Weight: Vital Signs (12 hours) Temp Pulse Resp BP Pulse Ox 01/21/20 07:45 118 H 173/91 H 01/21/20 07:36 14 100 01/21/20 07:00 98.7 F 01/21/20 03:00 97.9 F 01/21/20 02:37 65 141/73 H 01/21/20 00:37 71 01/20/20 23:00 97.9 F 01/20/20 22:19 65 Weight Admit Weight 121 lb 14.656 oz Weight 121 lb 14.65 oz Most Recent Monitor Data Heart Rate from ECG 105 NIBP 190/93 NIBP BP-Mean 125 Respiration from ECG 9 SpO2 100 I&O: 01/20/20 01/21/20 01/22/20 06:59 06:59 06:59 Intake Total 664 2641 Output Total 382 1330 325 Balance 282 1311 -325 Result Diagrams: 01/21/20 06:28 01/21/20 06:28 Hospitalist ROS - Medication Medications: Active Medications Generic Name Dose Route Start Last Admin Trade Name Freq PRN Reason Stop Dose Admin Carvedilol 3.125 mg 01/20/20 21:00 01/20/20 20:40 Coreg PO 3.125 mg BID ALEJANDRA Administration Famotidine 20 mg 01/20/20 21:00 01/20/20 20:41 Pepcid SLOW IVP 20 mg 2100 ALEJANDRA Administration Azithromycin 500 mg/ Sodium 250 mls @ 250 mls/hr 01/19/20 10:00 01/20/20 09: 16 Chloride IVPB 250 mls 1000 ALEJANDRA Administration Ceftriaxone Sodium 1 gm/ 100 mls @ 200 mls/hr 01/19/20 09:00 01/20/20 07:26 Sodium Chloride IVPB 100 mls 0900 ALEJANDRA Administration Fentanyl Citrate 2,000 mcg/ 100 mls @ 0 mls/hr 01/18/20 13:23 01/19/20 18:35 Sodium Chloride IV 02/17/20 13:23 100 mls INF ALEJANDRA Administration Protocol Per Protocol Insulin Human Lispro 0 units 01/18/20 13:20 01/18/20 16:05 Humalog SC 8 unit .MODERATE SLIDING SC PRN Administration Moderate Correctional Scale Lorazepam 2 mg 01/18/20 13:23 01/20/20 09:44 Ativan SLOW IVP 02/17/20 13:23 2 mg Q1H PRN Administration Breakthrough agitation Propofol 1,000 mg 01/18/20 13:23 01/20/20 20:40 Diprivan IV 02/17/20 13:23 1,000 mg INF PRN Administration TO ACHIEVE GOAL RASS Protocol - Exam Eye: PERRL, anicteric sclera Heart: RRR, no murmur, no gallops, no rubs, normal peripheral pulses Respiratory: CTAB (+ rhonchi bilaterally) Gastrointestinal: soft, non-tender, non-distended, normal bowel sounds Extremities: 1+ LE edema (edema in both upper and lower extremities) Hosp A/P (1) Acute respiratory failure with hypoxemia Code(s): J96.01 - ACUTE RESPIRATORY FAILURE WITH HYPOXIA Status: Acute (2) Septic shock Code(s): A41.9 - SEPSIS, UNSPECIFIED ORGANISM; R65.21 - SEVERE SEPSIS WITH SEPTIC SHOCK Status: Acute (3) Pneumonia Code(s): J18.9 - PNEUMONIA, UNSPECIFIED ORGANISM Status: Acute (4) Chronic kidney disease, stage 4 (severe) Code(s): N18.4 - CHRONIC KIDNEY DISEASE, STAGE 4 (SEVERE) Status: Chronic (5) Diabetes mellitus type 2 in nonobese Code(s): E11.9 - TYPE 2 DIABETES MELLITUS WITHOUT COMPLICATIONS Status: Chronic (6) Hypertension Code(s): I10 - ESSENTIAL (PRIMARY) HYPERTENSION Status: Chronic (7) Metabolic acidosis Code(s): E87.2 - ACIDOSIS Status: Acute (8) NSTEMI (non-ST elevated myocardial infarction) Code(s): I21.4 - NON-ST ELEVATION (NSTEMI) MYOCARDIAL INFARCTION Status: Acute - Plan * Acute respiratory failure with hypoxemia and sepsis- continue Rocephin and Azithromycin * Elevated troponins- NSTEMI type 2 likely- awaiting Echo * Continue Heparin drip and Nitro drip * DM- blood glucose is stable- continue SSI * Acute on chronic kidney injury- nephrology input appreciated- renal function is leveling off * Metabolic acidosis- stable * HTN- blood pressure is labile today- likely due to reduction in sedation * Possible wean from the ventilator soon
[2020-01-21] MEDS: Propofol 1,000 MG/100 ML VIAL IV PRN (09:32)
[2020-01-21] MEDS: Aspirin 81 mg Enteric Coated Tablet PO SCH (09:33)
[2020-01-21] MEDS: Heparin 25,000 units/D5W 500 ML IV SCH (09:33)
[2020-01-21] MEDS: Carvedilol 3.125 MG TAB PO SCH (09:33)
[2020-01-21] MEDS: cefTRIAXone\\ROCEPHIN 1 GM in Sodium Chloride 0.9% 100 ML IVPB SCH (09:40)
[2020-01-21] MEDS: Azithromycin 500 MG in Sodium Chloride 0.9% 250 ML 250 ML IVPB SCH (10:21)
--- NOTE | 2020-01-21 10:23 | PRG ---
DATE OF SERVICE: 01/21/2020 SUBJECTIVE: Ms. Parra is a 64-year-old female, who was admitted for acute respiratory failure secondary to pneumonia. She was also ruled out for COVID-19. In addition, the patient had a cardiac echo, which showed decreased ejection fraction. Troponin I is noted to be elevated. Cardiology is following. We are seeing this patient for the acute kidney injury. Evaluation suggests she may simply have a hemodynamically-mediated renal dysfunction on top of her chronic renal failure from diabetic nephropathy. She does have significant proteinuria of at least 3.4 g per day. No acute event. OBJECTIVE: VITAL SIGNS: Blood pressure is 190/93, heart rate 105, respiratory rate 13, and O2 saturation 100%. GENERAL: The patient is arousable, intubated on ventilator support. SKIN: Adequate turgor. HEENT: Pinkish conjunctivae. Anicteric sclerae. NECK: No neck mass. No carotid bruits. No JVD. CHEST: No deformities. LUNGS: Decreased breath sounds. HEART: Normal sinus rhythm. No murmur. No gallops. No rubs. ABDOMEN: Globular, soft, and nontender. No masses. EXTREMITIES: No edema. No deformities. MEDICATIONS: Medications of January 21, 2020, were reviewed. LABORATORY DATA: Laboratories of January 21, 2020, white count 9.4 and hemoglobin 9.8. Sodium 138, potassium 3.9, chloride 111, carbon dioxide 16, BUN 32, creatinine 2.73, GFR 17 mL/minute, glucose 156, and calcium 8.3. January 21, 2020; cardiac echo showed EF of 30% to 35%. In addition, there is also diastolic dysfunction. Chest x-ray of January 21, 2020, showed right middle lobe airspace opacity. Urinalysis pending. Hemoglobin 9.8. ASSESSMENT AND PLAN: 1. Acute kidney injury on top of chronic renal failure, consider hemodynamically-mediated renal dysfunction on top of her chronic renal failure. The patient received IV hydration yesterday. Currently placed on hold due to the decreased ejection fraction. 2. Pneumonia, currently on IV antibiotics. 3. Chronic renal failure - she does show significant proteinuria - protein-creatinine ratio is 3.4 - suggestive of 3.4 g of protein spillage. Most likely from underlying diabetic nephropathy. No indication for any dialytic intervention. 4. Elevated troponin I/decreased ejection fraction. Cardiology is following. Consideration for demand ischemia was being considered by Cardiology. 5. Acute respiratory failure. For eventual extubation today. ADDENDUM: Repeat urinalysis. Job ID: [id number]
[2020-01-21 10:40] LABS: ALV-art Gradient 98.025 (0-20); Puncture Site LRA
[2020-01-21 11:42] LABS: Bilirubin Negative (Negative); Blood, Urine 1+ (Negative); Clarity Clear (Clear); Glucose, Urine (Dipstick) 50 mg/dL (Negative); Ketone, Urine Negative (Negative); Leukocyte 25 Leu/uL (Negative); Nitrite Negative (Negative); Protein, Urine (Dipstick) 100 mg/dL (Neg-Trace); Specific Gravity, Urine 1.006 (1.002-1.036); Squamous Epithelial 0-3 HPF (0-3); Transitional Epithelial 0-3 HPF (None Seen); Urobilinogen Normal mg/dL (Less than 2); WBC/HPF 0-3 HPF (0-3); pH, Urine 6.5 (5.0-9.0)
[2020-01-21 11:45] LABS: Bacteria/HPF 1+ HPF (None Seen)
[2020-01-21] MEDS: HumaLOG 300 UNITS/3 ML VIAL SC PRN (13:31)
[2020-01-21] MEDS: Sodium Bicarbonate Tab 325 MG TAB PO SCH (15:43)
--- NOTE | 2020-01-21 17:30 | PRG ---
DATE OF SERVICE: 01/21/2020 SUBJECTIVE: Ms. Parra is awake. She continues to be intubated. Plan is for extubation this afternoon. OBJECTIVE: VITAL SIGNS: Blood pressure 185/96 and pulse 91. Temperature afebrile. LUNGS: Clear to auscultation. HEART: Regular rate and rhythm. ABDOMEN: Soft, nontender, and nondistended. EXTREMITIES: No edema. IMPRESSION: 1. Non-Q-wave myocardial infarction. 2. Pneumonia. 3. Renal insufficiency. 4. Respiratory failure. RECOMMENDATIONS: Ms. Parra slowly is improving. Vent management per Pulmonary. Would likely recommend angio prior to discharge, although risk contrast nephropathy. We will have to discuss with the patient prior. Job ID: [id number]
--- NOTE | 2020-01-21 18:36 | PRG ---
DATE OF SERVICE: 01/21/2020 SUBJECTIVE: Irina Parra did well overnight. OBJECTIVE: VITAL SIGNS: Heart rates in the 90s today, blood pressures have been in the 180s to 190s, respiratory rates in the teens. LUNGS: Clear anteriorly. HEART: Regular rhythm. ABDOMEN: Soft. EXTREMITIES: Without edema. DIAGNOSTIC STUDIES: Chest radiograph still shows her right lower lung field alveolar infiltrate. LABORATORY DATA: White count 9.4, hemoglobin 9.8, platelets 272. Sodium 138, potassium 3.9, chloride 111, bicarb 16, BUN 32, creatinine 2.73. IMPRESSION: 1. Pneumonia. 2. Respiratory failure. 3. Hyperchloremic acidosis. 4. Acute on chronic kidney disease. 5. Myocardial infarction. She passed spontaneous breathing trial. I felt she was a candidate for extubation this afternoon. This has been done successfully. She is in no distress post extubation. Critical care time 30 min. Job ID: [id number] MTDD
[2020-01-22 04:15] LABS: Anion Gap 17 mmol/L (10-20); BUN (Urea Nitrogen) 29 mg/dL (9.8-20.1); Calc. Creatinine Clearance 20 mL/min (70-130); Calcium 8.7 mg/dL (7.8-10.44); Carbon Dioxide 17 mmol/L (23-31); Chloride 115 mmol/L (98-107); Estimated GFR-MDRD 19; Glucose 154 mg/dL (80-115); Potassium 3.9 mmol/L (3.5-5.1); Sodium 145 mmol/L (136-145)
[2020-01-22 04:36] LABS: Band 1 % (5-11); Lymphocytes 20 % (21-51); MDiff Complete? YES; Mean Corpuscular HGB CONC 31.2 g/dL (32.0-36.0); Mean Corpuscular Hemoglobin 30.2 pg (27.0-31.0); Mean Corpuscular Volume 96.7 fL (78.0-98.0); Mean Platelet Volume 8.2 fL (7.4-10.4); Monocytes 7 % (0-10); Neutrophil 72 % (42-75); Platelet Count 326 thou/uL (130-400); RBC Distribution Width 13.5 % (11.5-14.5); Red Blood Cell (RBC) Count 3.64 mill/uL (4.20-5.40); White Blood Cell (WBC) Count 11.7 thou/uL (4.8-10.8)
[2020-01-22] MEDS: Aspirin 81 mg Enteric Coated Tablet PO SCH (09:00)
[2020-01-22] MEDS: Carvedilol 3.125 MG TAB PO SCH ×3 (09:01→20:15)
[2020-01-22] MEDS: Sodium Bicarbonate Tab 325 MG TAB PO SCH ×4 (09:01→20:15)
[2020-01-22] MEDS: cefTRIAXone\\ROCEPHIN 1 GM in Sodium Chloride 0.9% 100 ML IVPB SCH (09:01)
[2020-01-22] MEDS: Heparin 25,000 units/D5W 500 ML IV SCH (09:11)
--- NOTE | 2020-01-22 09:18 | PDOC.HOSPP ---
- Subjective Encounter Date: 01/22/20 Encounter Time: 09:16 Subjective: Ms. Parra was seen today in follow-up of Pneumonia with sepsis and NSTEMI. She has been extubated. She is awake and alert. She says she feels " real tired ". She denies chest pain. - Objective Vital Signs & Weight: Vital Signs (12 hours) Temp Pulse Ox 01/22/20 08:00 99.9 F H 96 01/22/20 00:24 100 Weight Admit Weight 121 lb 14.656 oz Weight 121 lb 14.65 oz Most Recent Monitor Data Heart Rate from ECG 98 NIBP 139/70 NIBP BP-Mean 93 Respiration from ECG 14 SpO2 100 I&O: 01/21/20 01/22/20 01/23/20 06:59 06:59 06:59 Intake Total 2641 675.8 100 Output Total 1330 1795 130 Balance 1311 -1119.2 -30 Result Diagrams: 01/22/20 03:24 01/22/20 03:24 Hospitalist ROS - Medication Medications: Active Medications Generic Name Dose Route Start Last Admin Trade Name Freq PRN Reason Stop Dose Admin Aspirin 81 mg 01/21/20 09:00 01/22/20 09:00 Ecotrin PO 81 mg DAILY ALEJANDRA Administration Carvedilol 3.125 mg 01/20/20 21:00 01/22/20 09:01 Coreg PO 3.125 mg BID ALEJANDRA Administration Famotidine 20 mg 01/20/20 21:00 01/20/20 20:41 Pepcid SLOW IVP 20 mg 2100 ALEJANDRA Administration Azithromycin 500 mg/ Sodium 250 mls @ 250 mls/hr 01/19/20 10:00 01/21/20 10: 21 Chloride IVPB 250 mls 1000 ALEJANDRA Administration Ceftriaxone Sodium 1 gm/ 100 mls @ 200 mls/hr 01/19/20 09:00 01/22/20 09:01 Sodium Chloride IVPB 100 mls 0900 ALEJANDRA Administration Heparin Sodium/Dextrose 500 mls @ 0 mls/hr 01/18/20 19:30 01/21/20 09:33 Heparin 25,000 Units/D5w IV 500 mls INF ALEJANDRA Administration Protocol As Directed Insulin Human Lispro 0 units 01/18/20 13:20 01/21/20 13:31 Humalog SC 4 unit .MODERATE SLIDING SC PRN Administration Moderate Correctional Scale Sodium Bicarbonate 650 mg 01/21/20 15:00 01/22/20 09:01 Bicarbonate, Sodium PO 650 mg TID ALEJANDRA Administration - Exam Eye: PERRL, anicteric sclera Heart: RRR, no murmur, no gallops, no rubs, normal peripheral pulses Respiratory: CTAB (+ rales at both bases) Gastrointestinal: soft, non-tender, non-distended, normal bowel sounds, no palpable masses Extremities: no cyanosis, no edema Hosp A/P (1) Acute respiratory failure with hypoxemia Code(s): J96.01 - ACUTE RESPIRATORY FAILURE WITH HYPOXIA Status: Acute (2) Septic shock Code(s): A41.9 - SEPSIS, UNSPECIFIED ORGANISM; R65.21 - SEVERE SEPSIS WITH SEPTIC SHOCK Status: Acute (3) Pneumonia Code(s): J18.9 - PNEUMONIA, UNSPECIFIED ORGANISM Status: Acute (4) Chronic kidney disease, stage 4 (severe) Code(s): N18.4 - CHRONIC KIDNEY DISEASE, STAGE 4 (SEVERE) Status: Chronic (5) Diabetes mellitus type 2 in nonobese Code(s): E11.9 - TYPE 2 DIABETES MELLITUS WITHOUT COMPLICATIONS Status: Chronic (6) Hypertension Code(s): I10 - ESSENTIAL (PRIMARY) HYPERTENSION Status: Chronic (7) Metabolic acidosis Code(s): E87.2 - ACIDOSIS Status: Acute (8) NSTEMI (non-ST elevated myocardial infarction) Code(s): I21.4 - NON-ST ELEVATION (NSTEMI) MYOCARDIAL INFARCTION Status: Acute - Plan * Acute respiratory failure with hypoxemia and sepsis- She has been extubated - continue Rocephin and Azithromycin * NSTEMI- Cardiology recommendations noted- she may need cardiac cath * She has been weaned off the Ntro drip. Continue Heparin drip, and aspirin and carvediolol and will add Lipitor * Can not use HA or ARB due to renal insufficiency * DM- blood glucose is stable- continue SSI * Acute on chronic kidney injury- renal function is stable * Metabolic acidosis- continue oral Bicarb replacement * HTN- blood pressure is stable * She is being moved out of the ICU today
--- NOTE | 2020-01-22 09:31 | PRG ---
DATE OF SERVICE: 01/22/2020 SUBJECTIVE: Ms. Parra is a 64-year-old female, who was admitted for pneumonia and acute respiratory failure. She was also found to have significantly elevated troponin I. She was placed temporarily on a respirator and is currently extubated. We are following up this patient for her acute kidney injury on top of her chronic renal failure. She most likely has underlying chronic renal failure from diabetic nephropathy. In addition, the acute kidney injury is felt to be from hemodynamically-mediated renal dysfunction. No new complaints today except she makes mention she feels tired. OBJECTIVE: VITAL SIGNS: Blood pressure 138/73, heart rate 96, respiratory rate 17, and O2 saturation 100%. GENERAL: Awake, alert, comfortable, not in distress. SKIN: Adequate turgor. HEENT: She has pinkish conjunctivae. Anicteric sclerae. No neck mass. No carotid bruits. No JVD. CHEST: No deformities. LUNGS: Decreased breath sounds. HEART: Normal sinus rhythm. No murmurs. No gallops. No rubs. ABDOMEN: Globular, soft. EXTREMITIES: No edema. No deformities. LABORATORY AND DIAGNOSTIC DATA: January 21, 2020, chest x-ray shows stable x-ray findings. There is right middle lobe opacity noted. Laboratories of January 22, 2020: White count 11.7, hemoglobin 11. Sodium 145, potassium 3.9, chloride 115, carbon dioxide 17, BUN 29, creatinine 2.5, GFR 19 mL/minute, glucose 154, and calcium 8.7. ASSESSMENT AND PLAN: 1. Acute kidney injury - superimposed hemodynamically-mediated renal dysfunction. This may be related to her underlying cardiac problem. Please note, she may have had [id number] myocardial infarction. Cardiology is following. Possibility of cardiac cath is contemplated next week. 2. Chronic renal failure, most likely from underlying diabetic nephropathy. She does have significant proteinuria. 3. Pneumonia/acute respiratory failure. Clinically improving. The patient is off ventilator. Continue current management. We will recheck CBC and basic metabolic panel in a.m. Job ID: [id number]
[2020-01-22] MEDS: Famotidine/PF 20 mg/2ml Vial SLOW IVP SCH ×2 (09:41→20:15)
[2020-01-22] MEDS: Azithromycin 500 MG in Sodium Chloride 0.9% 250 ML 250 ML IVPB SCH (09:42)
[2020-01-22] MEDS: Heparin 10,000 UNITS/ 10 ML VIAL SLOW IVP SCH (10:46)
[2020-01-22] MEDS: Promethazine HCl 25 MG in Sodium Chloride 0.9% 50 ML IVPB PRN (10:49)
[2020-01-22] MEDS: HumaLOG 300 UNITS/3 ML VIAL SC PRN (10:54)
[2020-01-22] MEDS ORDERED: Sodium Chloride 0.9% 1,000 ML IV SCH (15:00)
[2020-01-22] MEDS: Sodium Chloride 0.9% 1,000 ML IV SCH (15:57)
--- NOTE | 2020-01-22 16:48 | PRG ---
DATE OF SERVICE: 01/22/2020 SUBJECTIVE: Irina Parra had no complaints today. OBJECTIVE: VITAL SIGNS: Stable overnight. She has had no respiratory distress. She is afebrile. Heart rate is 94, respiratory rate 16, oximetry is 100% on 2 L, blood pressure 124/66. LUNGS: Clear. HEART: Regular rhythm. ABDOMEN: Soft. LABORATORY DATA: White count 11.7, hemoglobin 11.0, platelets 326. Electrolytes; sodium 145, potassium 3.9, chloride 115, bicarb 17, BUN 29, creatinine 2.5. IMPRESSION AND PLAN: 1. Community-acquired pneumonia. 2. Dhbdy-ks-xgesqno kidney disease with improvement of her renal function. 3. Diabetes. 4. acidosis. out of the ICU. I will switch her to p.o. antimicrobial therapy. She should have a followup x-ray in 4 to 6 weeks after she is discharged. Job ID: [id number]
--- NOTE | 2020-01-22 19:43 | PRG ---
DATE OF SERVICE: 01/22/2020 SUBJECTIVE: Ms. Parra is now extubated. This is the first time I have been able to talk to Ms. Parra. She does not complain of shortness of breath. She states she had an episode of chest pain earlier today. OBJECTIVE: VITAL SIGNS: Blood pressure 124/66, pulse 94, and temperature 99.4. LUNGS: Minimal crackles bilaterally. HEART: Regular rate and rhythm. ABDOMEN: Soft, nontender, and nondistended. EXTREMITIES: No edema. PERTINENT LABORATORY DATA: Hemoglobin 11. Creatinine 2.5, down from 2.7. IMPRESSION: 1. Non-Q-wave myocardial infarction. 2. Pneumonia. 3. Diabetes mellitus. 4. Noncompliance. 5. Renal insufficiency. RECOMMENDATIONS: Ms. Parra did have a significant non-Q-wave MD during the episode of respiratory failure in addition to pneumonia. I am concerned about an episode of chest pain early this morning, although was short-lived. The plan will be to proceed with coronary angiography. I discussed this with Ms. Parra in full detail. Risks include, but are not limited to the following: , stroke, MD, need for emergency surgery, loss of limb, bleeding, and infection, as well as a reaction to the dye causing kidney failure and needing long-term dialysis. I also discussed the risks of PCI to include all of the above including coronary dissection and perforation in addition to acute stent thrombosis and restenosis. All questions about the procedure were answered. Given the above, the patient agreed to proceed with coronary angiography and possible PCI. She gave consent. All questions were answered. I am certainly concerned about contrast nephropathy. I did discuss this with Ms. Parra. I did state she may need dialysis potentially, but we will try and hydrate her to protect her kidneys. She understands the situation, would like to proceed with coronary angiography. I have discussed the case with Dr. Alfredo, who states her kidney function is a near baseline. She has some issues with compliance, so we will proceed with a bare-metal stent if needed. Job ID: [id number]
[2020-01-22] MEDS: Acetylcysteine 20% 200 MG/ML 30 ML VIAL PO SCH (20:14)
[2020-01-22] MEDS: Atorvastatin Calcium 40 MG TAB PO SCH (20:15)
[2020-01-22] MEDS: Melatonin 3 MG TAB PO PRN (22:25)
[2020-01-23] MEDS: Sodium Chloride 0.9% 1,000 ML IV SCH ×3 (01:26→17:16)
[2020-01-23] MEDS: Carvedilol 3.125 MG TAB PO SCH ×2 (05:14→20:43)
[2020-01-23] MEDS: Aspirin 81 mg Enteric Coated Tablet PO SCH (05:14)
[2020-01-23] MEDS: Sodium Bicarbonate Tab 325 MG TAB PO SCH ×3 (05:14→20:43)
[2020-01-23] MEDS: Benzonatate 100 MG CAP PO PRN ×2 (05:15→20:43)
[2020-01-23 05:24] LABS: Hemoglobin 8.8 g/dL (12.0-16.0); Lymphocytes 19 % (21-51); MDiff Complete? YES; Mean Corpuscular HGB CONC 32.2 g/dL (32.0-36.0); Mean Corpuscular Hemoglobin 30.9 pg (27.0-31.0); Monocytes 3 % (0-10); Neutrophil 78 % (42-75); Platelet Count 308 thou/uL (130-400); Platelet Morphology Comment Appears Adequate; RBC Distribution Width 13.2 % (11.5-14.5); Red Blood Cell (RBC) Count 2.83 mill/uL (4.20-5.40); White Blood Cell (WBC) Count 9.1 thou/uL (4.8-10.8)
[2020-01-23 05:31] LABS: Anion Gap 13 mmol/L (10-20); BUN (Urea Nitrogen) 23 mg/dL (9.8-20.1); Calc. Creatinine Clearance 22 mL/min (70-130); Calcium 7.7 mg/dL (7.8-10.44); Carbon Dioxide 17 mmol/L (23-31); Chloride 113 mmol/L (98-107); Estimated GFR-MDRD 22; Glucose 124 mg/dL (80-115); Potassium 3.7 mmol/L (3.5-5.1); Sodium 139 mmol/L (136-145)
[2020-01-23] MEDS: Acetylcysteine 20% 200 MG/ML 30 ML VIAL PO SCH ×2 (05:31→20:42)
[2020-01-23] MEDS: Heparin 10,000 UNITS/ 10 ML VIAL SLOW IVP SCH (06:28)
[2020-01-23] MEDS ORDERED: Sodium Chloride 0.9% 200 ML IV PRN (07:42)
[2020-01-23] MEDS ORDERED: Acetaminophen/Codeine 30-300mg Tablet PO PRN ×2 (07:42)
[2020-01-23] MEDS ORDERED: Nitroglycerin 0.4 MG TAB (25 Tab Bottle) SL PRN (07:42)
[2020-01-23] MEDS ORDERED: Sodium Chloride 0.9% 1,000 ML IV SCH (07:45)
--- NOTE | 2020-01-23 07:58 | EKG ---
Test Reason : Blood Pressure : / mmHG Vent. Rate : 066 BPM Atrial Rate : 066 BPM P-R Int : 156 ms QRS Dur : 078 ms QT Int : 446 ms P-R-T Axes : 060 026 141 degrees QTc Int : 467 ms Normal sinus rhythm Possible Inferior infarct , age undetermined Abnormal ECG No previous ECGs available Confirmed by DR. Jodi MADRID ([id number]) on 01/23/2020 7:58:23 AM Referred By: ARTI Confirmed By:DR. Jodi MADRID
[2020-01-23] MEDS: Pantoprazole 40 MG VIAL IVP SCH ×2 (08:19→20:43)
--- NOTE | 2020-01-23 08:53 | PRG ---
DATE OF SERVICE: 01/23/2020 SUBJECTIVE: Ms. Parra is a 64-year-old female, followed up by the Renal Service for her acute kidney injury on top of her chronic renal failure. She was hydrated yesterday and started on Mucomyst in anticipation of the cardiac cath to be done this morning. She did undergo the cardiac cath and three-vessel disease was found. Cardiothoracic Surgery consult has been done. The patient voices no new complaints. She denies any chest pain or shortness of breath. She feels tired. She is tolerating the IV fluid. OBJECTIVE: VITAL SIGNS: Blood pressure 139/66, heart rate 84, respiratory rate 20, temperature 98.2, O2 saturation 95%. GENERAL EXAM: The patient is awake and comfortable, not in overt distress. SKIN: Adequate turgor. HEENT: Slightly pale conjunctivae. Anicteric sclerae. NECK: No neck mass. No carotid bruits. No JVD. CHEST: No deformities. LUNGS: Clear breath sounds. No wheezing. No crackles. HEART: Normal sinus rhythm. No murmurs, gallops, or rubs. ABDOMEN: Globular, soft. Nontender. No masses. EXTREMITIES: No edema. No deformities. MEDICATIONS: Medications of January 23, 2020, were reviewed. LABORATORY DATA: Laboratories of January 23, 2020, white count 9.1, hemoglobin 8.8. Sodium 139, potassium 3.7, chloride 113, carbon dioxide 17, BUN 23, creatinine 2.25, glucose 124, calcium 7.7. ASSESSMENT AND PLAN: 1. Acute kidney injury-superimposed hemodynamically-mediated renal dysfunction. Stable renal function. Creatinine slightly improved at 2.25. No indication for any dialytic intervention. I would suggest we continue IV fluid at normal saline at 125 mL/hour. Continue Mucomyst for another day. 2. Coronary artery disease-status post cardiac cath with three-vessel disease. Cardiothoracic Surgery has been consulted. 3. Anemia, continue to observe. P.r.n. blood transfusion. We will recheck basic metabolic panel and CBC in a.m. Job ID: [id number]
[2020-01-23] MEDS: Sodium Bicarbonate 150 MEQ in Dextrose 5% in Water 1,000 ML IV SCH (10:37)
--- NOTE | 2020-01-23 10:44 | PDOC.HOSPP ---
- Subjective Encounter Date: 01/23/20 Encounter Time: 10:43 Subjective: Ms. Parra was seen today in follow-up pneumonia and sepsis, and NSTEMI. She says she wants to get up and move around. She denies having chest pain and denies any difficulty with breathing. - Objective Vital Signs & Weight: Vital Signs (12 hours) Temp Pulse Resp BP Pulse Ox 01/23/20 07:59 98.2 F 84 20 139/66 95 01/23/20 03:57 98.9 F 83 20 156/75 H 98 01/23/20 00:00 79 Weight Admit Weight 121 lb 14.656 oz Weight 122 lb 14.4 oz Most Recent Monitor Data Heart Rate from ECG 94 NIBP 131/72 NIBP BP-Mean 91 Respiration from ECG 16 SpO2 100 I&O: 01/22/20 01/23/20 01/24/20 06:59 06:59 06:59 Intake Total 675.8 1910 Output Total 1795 1040 Balance -1119.2 870 Result Diagrams: 01/23/20 04:04 01/23/20 04:04 Additional Labs: Accuchecks 01/22/20 01/22/20 01/22/20 20:38 17:27 10:56 POC Glucose 149 H 138 H 252 H Hospitalist ROS - Medication Medications: Active Medications Generic Name Dose Route Start Last Admin Trade Name Freq PRN Reason Stop Dose Admin Acetylcysteine 600 mg 01/22/20 21:00 01/23/20 05:31 Mucomyst 20% PO 01/24/20 09:01 600 mg BID ALEJANDRA Administration Aspirin 81 mg 01/21/20 09:00 01/23/20 05:14 Ecotrin PO 81 mg DAILY ALEJANDRA Administration Atorvastatin Calcium 40 mg 01/22/20 21:00 01/22/20 20:15 Lipitor PO 40 mg HS ALEJANDRA Administration Benzonatate 100 mg 01/23/20 04:33 01/23/20 05:15 Tessalon PO 100 mg TID PRN Administration Cough Carvedilol 3.125 mg 01/20/20 21:00 01/23/20 05:14 Coreg PO 3.125 mg BID ALEJANDRA Administration Promethazine HCl 25 mg/ Sodium 51 mls @ 204 mls/hr 01/21/20 18:10 08/20/20 10 :49 Chloride IVPB 51 mls Q6H PRN Administration Nausea/Vomiting Sodium Chloride 1,000 mls @ 125 mls/hr 01/23/20 08:45 01/23/20 09:19 Normal Saline 0.9% IV Not Given .Q8H ALEJANDRA Insulin Human Lispro 0 units 01/18/20 13:20 01/22/20 10:54 Humalog SC 6 unit .MODERATE SLIDING SC PRN Administration Moderate Correctional Scale Levofloxacin 250 mg 01/23/20 06:00 01/23/20 05:14 Levaquin PO 250 mg 0600 ALEJANDRA Administration Melatonin 6 mg 01/22/20 20:39 01/22/20 22:25 Melatonin PO 6 mg HS PRN Administration Insomnia Pantoprazole Sodium 40 mg 01/23/20 09:00 01/23/20 08:19 Protonix IVP 40 mg Q12HR ALEJANDRA Administration Sodium Bicarbonate 650 mg 01/21/20 15:00 01/23/20 05:14 Bicarbonate, Sodium PO 650 mg TID ALEJANDRA Administration - Exam Eye: PERRL, anicteric sclera Heart: RRR, no murmur, no gallops, no rubs, normal peripheral pulses Respiratory: CTAB (with some coarse breath sounds, and occasional wheeze), no wheezes, no rales, normal chest expansion Gastrointestinal: soft, non-tender, non-distended, normal bowel sounds, no palpable masses Extremities: no cyanosis, no edema Hosp A/P (1) Acute respiratory failure with hypoxemia Code(s): J96.01 - ACUTE RESPIRATORY FAILURE WITH HYPOXIA Status: Acute (2) Septic shock Code(s): A41.9 - SEPSIS, UNSPECIFIED ORGANISM; R65.21 - SEVERE SEPSIS WITH SEPTIC SHOCK Status: Acute (3) Pneumonia Code(s): J18.9 - PNEUMONIA, UNSPECIFIED ORGANISM Status: Acute (4) Chronic kidney disease, stage 4 (severe) Code(s): N18.4 - CHRONIC KIDNEY DISEASE, STAGE 4 (SEVERE) Status: Chronic (5) Diabetes mellitus type 2 in nonobese Code(s): E11.9 - TYPE 2 DIABETES MELLITUS WITHOUT COMPLICATIONS Status: Chronic (6) Hypertension Code(s): I10 - ESSENTIAL (PRIMARY) HYPERTENSION Status: Chronic (7) Metabolic acidosis Code(s): E87.2 - ACIDOSIS Status: Acute (8) NSTEMI (non-ST elevated myocardial infarction) Code(s): I21.4 - NON-ST ELEVATION (NSTEMI) MYOCARDIAL INFARCTION Status: Acute - Plan * Pneumonia-antibiotics have been transitioned to oral Levaquin * Anemia- this may be due to dilution affect from IV fluids. The patient says she has had anemia in the pastand had to have a blood transfusion. She was told it was due to her kidney's being " sick" This was a few years ago in [place]. Will check iron studies. Will repeat her H&H and if below 8.0 will transfuse. WIll check occult blood in the stool. * NSTEMI- Cardiology recommendations noted- she may need cardiac cath * Can not use HA or ARB due to renal insufficiency * DM- blood glucose is stable- continue SSI * Acute on chronic kidney injury- renal function is stable * Metabolic acidosis- continue oral Bicarb replacement * HTN- blood pressure is stable
[2020-01-23] MEDS: HumaLOG 300 UNITS/3 ML VIAL SC PRN ×2 (11:27→17:14)
[2020-01-23 12:07] LABS: Hemoglobin 9.1 g/dL (12.0-16.0); Platelet Count 324 thou/uL (130-400)
[2020-01-23 12:33] LABS: Iron 85 ug/dL (50-170); Iron Binding Capacity, Total 199 mcg/dL (265-497)
[2020-01-23] MEDS ORDERED: Iopamidol 370 76% 100 ML VIAL ONE (13:25)
[2020-01-23] MEDS ORDERED: Communication Order-Pharmacy FS SCH (14:34)
--- NOTE | 2020-01-23 16:20 | CON ---
DATE OF CONSULTATION: HISTORY OF PRESENT ILLNESS: This is a 64-year-old female, admitted about 6 days ago with acute respiratory failure, possible right lower lobe pneumonia, acute myocardial infarction with a peak troponin of 60. She required intubation in the emergency room. Blood pressure was markedly elevated greater than 200. She has a history of multiple cardiovascular risk factors, and unfortunately is medically noncompliant and does not take her medicines because she does not want to and thought she was indestructible in her words. PAST MEDICAL HISTORY: 1. She has diabetes mellitus. 2. Hypertension. 3. Dyslipidemia. 4. Chronic kidney disease. In regard to her chronic kidney disease, she saw Dr. Posada as an outpatient. PAST SURGICAL HISTORY: Includes cholecystectomy. SOCIAL HISTORY: The patient lives with 3 grandchildren, although will be moving in with her daughter subsequent to this hospital stay. She does not smoke cigarettes, but smokes marijuana on a daily basis. She denies any alcohol intake. Her ex- recently in the [facility]. CURRENT MEDICATIONS: Include: 1. Aspirin 81 a day. 2. Lipitor 40 a day. 3. Coreg 3.125 b.i.d. 4. Levaquin 250 a day. 5. She is also on a sliding scale insulin. REVIEW OF SYSTEMS: The patient admits to pain in her feet at night. She states that her legs bother her when she walks, but specifically says her feet bother her when she walks. She says she has weakness in her legs, such that sometimes she has difficulty walking. She has no history of previous stroke or TIA. She has no previous cardiac history. She has no history of GI bleeding. She denies constipation or diarrhea. LABORATORY VALUES: Otherwise her creatinine has varied between 2.25 and 2.75 this admission. Hemoglobin is diminished between 8.8 and 9.1, and she does admit to having a blood transfusion at some point in the past. PHYSICAL EXAMINATION: GENERAL: She is an alert, cooperative lady, height 4 feet 9 inches, weight 122, BMI 26. NECK: No carotid bruits. LUNGS: Clear to auscultation anteriorly. CARDIAC: Regular rate and rhythm. No murmurs. ABDOMEN: Obese and nontender with panniculus hanging down over her groins. She has a dressing on the right groin. EXTREMITIES: Unable to palpate femoral pulses, but she does have a left dorsalis pedis pulse. I do not appreciate popliteal pulses or right pedal pulse. She has some good capillary refill and warm feet. DISCUSSION: At this time, I have reviewed her cardiac catheterization, showing a high-grade distal right coronary lesion about 2 cm prior to the takeoff of the PDA, which does have some moderate disease at the origin, but is probably too small to graft distally, so her right coronary artery distally would be a target. Her left main tapers to about 40% or 50% stenosis and then she has a single obtuse marginal with an 80% to 90% stenosis and her LAD has a mid stenosis of 80% to 90% and a distal stenosis toward the apex of about 50% to 60%. Potential targets are LAD, OM and distal right coronary artery. I have gone over the procedure risks including need for dialysis, complications, and expectations and she is agreeable to proceed. Job ID: [id number]
[2020-01-23] MEDS: Atorvastatin Calcium 40 MG TAB PO SCH (20:43)
[2020-01-24] MEDS: Sodium Chloride 0.9% 1,000 ML IV SCH (00:20)
[2020-01-24] MEDS ORDERED: Melatonin 3 MG TAB PO PRN (00:56)
[2020-01-24] MEDS ORDERED: traZODone HCl 50 MG TAB PO SCH (01:15)
[2020-01-24] MEDS ORDERED: Furosemide 40 MG/4 ML VIAL SLOW IVP SCH (03:00)
[2020-01-24 05:39] LABS: #Basophils 0.1 thou/uL (0.0-0.2); #Eosinphils 0.1 thou/uL (0.0-0.7); #Lymphocytes 1.4 thou/uL (1.20-3.40); #Monocytes 0.6 thou/uL (0.11-0.59); #Neutrophils 8.1 thou/uL (1.40-6.50); %Basophils 0.7 % (0.0-1.0); %Eosinophils 1.4 % (0.0-10.0); %Lymphocytes 13.2 % (21.0-51.0); %Neutrophils 78.7 % (42.0-75.0); Hemoglobin 9.5 g/dL (12.0-16.0); Mean Corpuscular HGB CONC 32.4 g/dL (32.0-36.0); Mean Corpuscular Hemoglobin 30.5 pg (27.0-31.0); Mean Corpuscular Volume 94.1 fL (78.0-98.0); Mean Platelet Volume 7.8 fL (7.4-10.4); Platelet Count 341 thou/uL (130-400); RBC Distribution Width 12.9 % (11.5-14.5); Red Blood Cell (RBC) Count 3.11 mill/uL (4.20-5.40); White Blood Cell (WBC) Count 10.2 thou/uL (4.8-10.8)
[2020-01-24 06:02] LABS: Anion Gap 15 mmol/L (10-20); BUN (Urea Nitrogen) 22 mg/dL (9.8-20.1); Calc. Creatinine Clearance 22 mL/min (70-130); Calcium 8.2 mg/dL (7.8-10.44); Carbon Dioxide 16 mmol/L (23-31); Chloride 113 mmol/L (98-107); Estimated GFR-MDRD 20; Glucose 176 mg/dL (80-115); Potassium 3.7 mmol/L (3.5-5.1); Sodium 140 mmol/L (136-145)
[2020-01-24 06:05] LABS: Band 1 % (5-11); Hemoglobin 9.5 g/dL (12.0-16.0); Lymphocytes 19 % (21-51); MDiff Complete? YES; Mean Corpuscular HGB CONC 32.5 g/dL (32.0-36.0); Mean Corpuscular Hemoglobin 30.6 pg (27.0-31.0); Mean Platelet Volume 7.8 fL (7.4-10.4); Monocytes 2 % (0-10); Neutrophil 78 % (42-75); Platelet Count 337 thou/uL (130-400); Platelet Morphology Comment Appears Adequate; RBC Distribution Width 12.8 % (11.5-14.5); RBC Morphology Normal; White Blood Cell (WBC) Count 10.2 thou/uL (4.8-10.8)
[2020-01-24] MEDS: HumaLOG 300 UNITS/3 ML VIAL SC PRN ×3 (06:37→19:10)
--- NOTE | 2020-01-24 07:58 | RAD ---
CHEST 1 VIEW: INDICATION: Chest tightness and crackles. COMPARISON: Prior study dated 01/21/2020. IMPRESSION: There is persistent bibasilar airspace disease slightly more pronounced in the right lower lobe. The patient has intervally been extubated with gastric catheter placement. Component of the bibasilar o pacities may represent subsegmental atelectasis. Continued followup was recommended. Cardiomegaly p ersists. No pleural effusion or pneumothorax is evident. POS: BH
[2020-01-24] MEDS: NIFEdipine XL 60 MG TAB PO SCH (08:36)
[2020-01-24] MEDS: Carvedilol 3.125 MG TAB PO SCH ×3 (08:36→19:05)
[2020-01-24] MEDS: Sodium Bicarbonate Tab 325 MG TAB PO SCH ×3 (08:37→21:49)
[2020-01-24] MEDS: Pantoprazole 40 MG VIAL IVP SCH ×2 (08:38→21:50)
[2020-01-24] MEDS ORDERED: Lisinopril 20 MG TAB PO SCH (09:00)
[2020-01-24] MEDS ORDERED: Aspirin 81 mg Enteric Coated Tablet PO SCH (09:00)
--- NOTE | 2020-01-24 09:33 | PDOC.HOSPP ---
- Subjective Encounter Date: 01/24/20 Encounter Time: 12:30 Subjective: pt up in bed no complains - Objective Vital Signs & Weight: Vital Signs (12 hours) Temp Pulse Resp BP Pulse Ox 01/24/20 08:22 98.3 F 96 18 164/77 H 100 01/24/20 03:45 98.4 F 96 22 H 153/72 H 100 01/24/20 00:00 88 Weight Admit Weight 121 lb 14.656 oz Weight 127 lb 9.6 oz Most Recent Monitor Data Heart Rate from ECG 94 NIBP 131/72 NIBP BP-Mean 91 Respiration from ECG 16 SpO2 100 I&O: 01/23/20 01/24/20 01/25/20 06:59 06:59 06:59 Intake Total 1910 2080 960 Output Total 2821 338 0036 Balance 870 1405 -890 Result Diagrams: 01/24/20 04:42 01/24/20 04:42 Additional Labs: Accuchecks 01/24/20 01/23/20 01/23/20 05:41 20:24 16:32 POC Glucose 184 H 175 H 163 H 01/23/20 01/21/20 01/21/20 10:43 16:32 13:29 POC Glucose 188 H 131 H 231 H 01/21/20 01/20/20 01/20/20 00:36 16:10 11:15 POC Glucose 192 H 152 H 138 H Hospitalist ROS - Review of Systems Respiratory: denies: cough, dry, shortness of breath, hemoptysis, SOB with excertion, pleuritic pain, sputum, wheezing, other Cardiovascular: denies: chest pain, palpitations, orthopnea, paroxysmal noc. dyspnea, edema, light headedness, other Gastrointestinal: denies: nausea, vomiting, abdominal pain, diarrhea, constipation, melena, hematochezia, other - Medication Medications: Active Medications Generic Name Dose Route Start Last Admin Trade Name Freq PRN Reason Stop Dose Admin Acetaminophen/Codeine Phosphate 1 tab 01/23/20 07:42 01/24/20 03:19 Tylenol #3 PO 01/26/20 08:59 1 tab Q4H PRN Administration Mild Pain (1-3) Aspirin 81 mg 01/24/20 09:00 01/24/20 08:37 Ecotrin PO 81 mg DAILY ALEJANDRA Administration Atorvastatin Calcium 40 mg 08/20/20 21:00 01/23/20 20:43 Lipitor PO 01/25/20 21:01 40 mg HS ALEJANDRA Administration Benzonatate 100 mg 01/23/20 04:33 01/23/20 20:43 Tessalon PO 01/26/20 08:59 100 mg TID PRN Administration Cough Hydralazine HCl 10 mg 01/18/20 13:20 01/24/20 03:12 Apresoline SLOW IVP 01/26/20 08:59 10 mg Q4H PRN Administration SBP > 180 and HR < 70 Promethazine HCl 25 mg/ Sodium 51 mls @ 204 mls/hr 01/21/20 18:10 01/22/20 10 :49 Chloride IVPB 01/26/20 08:59 51 mls Q6H PRN Administration Nausea/Vomiting Insulin Human Lispro 0 units 01/18/20 13:20 01/24/20 06:37 Humalog SC 01/26/20 08:59 2 unit .MODERATE SLIDING SC PRN Administration Moderate Correctional Scale Levofloxacin 250 mg 01/23/20 06:00 01/24/20 05:44 Levaquin PO 01/26/20 08:59 250 mg 0600 ALEJANDRA Administration Lisinopril 20 mg 01/24/20 09:00 01/24/20 08:36 Zestril PO 20 mg DAILY ALEJANDRA Administration Melatonin 6 mg 01/22/20 20:39 01/22/20 22:25 Melatonin PO 01/26/20 08:59 6 mg HS PRN Administration Insomnia Nifedipine 60 mg 01/24/20 09:00 01/24/20 08:36 Procardia Xl PO 60 mg DAILY ALEJANDRA Administration Pantoprazole Sodium 40 mg 01/23/20 09:00 01/24/20 08:38 Protonix IVP 01/26/20 08:59 40 mg Q12HR ALEJANDRA Administration Sertraline HCl 100 mg 01/24/20 09:00 01/24/20 08:37 Zoloft PO 100 mg DAILY ALEJANDRA Administration Sodium Bicarbonate 650 mg 01/21/20 15:00 01/24/20 08:37 Bicarbonate, Sodium PO 01/26/20 08:59 650 mg TID ALEJANDRA Administration - Exam ENT: negative: normocephalic atraumatic, no oropharyngeal lesions, moist mucosa , dry oral mucosa Neck: negative: supple, symmetric, no JVD, no thyromegaly, no lymphadenopathy, no carotid bruit, JVD Heart: negative: RRR, no murmur, no gallops, no rubs, normal peripheral pulses, irregular, diminshed peripheral pulses, murmur present, II/IV, III/IV Respiratory: negative: CTAB, no wheezes, no rales, no ronchi, normal chest expansion, no tachypnea, normal percussion, rales, rhonchi, tachypneic, wheezes Gastrointestinal: negative: soft, non-tender, non-distended, normal bowel sounds , no palpable masses, no hepatomegaly, no splenomegaly, no bruit, no guarding, no rigidity, tender to palpation, distended, diminished bowl sounds, voluntary guarding Hosp A/P (1) Acute respiratory failure with hypoxemia Code(s): J96.01 - ACUTE RESPIRATORY FAILURE WITH HYPOXIA Status: Acute (2) NSTEMI (non-ST elevated myocardial infarction) Code(s): I21.4 - NON-ST ELEVATION (NSTEMI) MYOCARDIAL INFARCTION Status: Acute (3) Pneumonia Code(s): J18.9 - PNEUMONIA, UNSPECIFIED ORGANISM Status: Acute (4) Chronic kidney disease, stage 4 (severe) Code(s): N18.4 - CHRONIC KIDNEY DISEASE, STAGE 4 (SEVERE) Status: Chronic (5) Diabetes mellitus type 2 in nonobese Code(s): E11.9 - TYPE 2 DIABETES MELLITUS WITHOUT COMPLICATIONS Status: Chronic (6) Hypertension Code(s): I10 - ESSENTIAL (PRIMARY) HYPERTENSION Status: Chronic - Plan Patient is a 64-year-old female with a history of hypertension diabetes and CKD who initially presented to the hospital complains of shortness of breath. Patient was initially put on BiPAP and was found to be hypoxic with an elevated troponin. Patient had a COVID screen which was negative. She was noted to have some ST segment depression and cardiology was consulted. She underwent a cardiac cath on 01/17 which indicated severe multivessel disease recommended bypass. Patient continued to have significant shortness of breath at this time pulmonary was consulted. Patient underwent intubation which appears to be on . Patient was extubated successfully on 01/20. Patient has chronic kidney disease for which nephrology has been consulted. She has been seen by CV surgery and will undergo a bypass probably on Sunday. 01/23 pt to undergo surgery on Sunday. will titrate oxygen down. will hold lisinopril for now.
[2020-01-24] MEDS: Acetylcysteine 20% 200 MG/ML 30 ML VIAL PO SCH (09:50)
--- NOTE | 2020-01-24 10:52 | PRG ---
DATE OF SERVICE: 01/24/2020 SUBJECTIVE: Ms. Parra is a 64-year-old female, who was admitted for pneumonia with acute respiratory failure. She was intubated and subsequently extubated. She also was noted to have significant elevation in her troponin I. She underwent a cardiac catheterization with findings of 3-vessel disease. Cardiothoracic surgery has evaluated this patient and she will be scheduled for an open heart surgery. We are following up this patient for her acute kidney injury. We felt initially that she had a superimposed prerenal azotemia on top of her chronic renal failure from diabetic nephropathy. This morning, she voices no new complaints. She has received IV hydration in the last few days. The patient denies any chest pain or shortness of breath this morning. OBJECTIVE: VITAL SIGNS: Blood pressure 164/77, heart rate 96, respiratory rate 18, temperature 98.3, O2 saturation is 100%. GENERAL: The patient is awake, alert, comfortable, not in overt distress. SKIN: Adequate turgor. HEENT: She has pinkish conjunctivae. Anicteric sclerae. NECK: No neck mass. No carotid bruits. No JVD. CHEST: No deformities. LUNGS: Decreased breath sounds. HEART: Normal sinus rhythm. No murmurs, gallops, or rubs. ABDOMEN: Globular, soft, nontender. No masses. EXTREMITIES: No edema, no deformities. MEDICATIONS: January 24, 2020, was reviewed. LABORATORY DATA: January 24, 2020, sodium 140, potassium 3.7, chloride 113, carbon dioxide 16, BUN 22, creatinine 2.38, glucose 176, calcium 8.2. White count 10.2, hemoglobin 9.5. ASSESSMENT AND PLAN: 1. Metabolic acidosis. Start sodium bicarbonate 650 mg p.o. one tablet t.i.d. 2. Acute kidney injury/chronic renal failure-superimposed prerenal azotemia. The patient has underlying diabetic nephropathy. Continue supportive care. If renal function will further worsen by tomorrow, consider restarting back normal saline. Agree to hold off any HA inhibitors for the moment with this patient. 3. Borderline anemia. We will continue to observe. 4. Coronary artery disease-status post cardiac cath. The patient has been evaluated by Cardiothoracic Surgery and recommendation is for an open heart surgery. 5. Recheck base met and CBC in a.m. Job ID: [id number]
[2020-01-24] MEDS: Promethazine HCl 25 MG in Sodium Chloride 0.9% 50 ML IVPB PRN (14:15)
[2020-01-24] MEDS: Atorvastatin Calcium 40 MG TAB PO SCH (21:49)
[2020-01-24] MEDS: traZODone HCl 50 MG TAB PO SCH (21:49)
[2020-01-24] MEDS: Melatonin 3 MG TAB PO PRN (21:50)
[2020-01-25 05:00] LABS: Hemoglobin A1c 6.9 % (4.0-6.0)
[2020-01-25 05:10] LABS: Eosinophils 4 % (0-10); Hemoglobin 8.9 g/dL (12.0-16.0); Lymphocytes 15 % (21-51); MDiff Complete? YES; Mean Corpuscular HGB CONC 32.9 g/dL (32.0-36.0); Mean Corpuscular Hemoglobin 30.9 pg (27.0-31.0); Mean Corpuscular Volume 93.7 fL (78.0-98.0); Mean Platelet Volume 7.4 fL (7.4-10.4); Monocytes 10 % (0-10); Neutrophil 71 % (42-75); Platelet Count 353 thou/uL (130-400); RBC Distribution Width 12.7 % (11.5-14.5); Red Blood Cell (RBC) Count 2.89 mill/uL (4.20-5.40); White Blood Cell (WBC) Count 9.5 thou/uL (4.8-10.8)
[2020-01-25 05:11] LABS: Anion Gap 14 mmol/L (10-20); BUN (Urea Nitrogen) 22 mg/dL (9.8-20.1); Calc. Creatinine Clearance 20 mL/min (70-130); Calcium 8.1 mg/dL (7.8-10.44); Carbon Dioxide 20 mmol/L (23-31); Chloride 108 mmol/L (98-107); Estimated GFR-MDRD 19; Glucose 117 mg/dL (80-115); Potassium 4.2 mmol/L (3.5-5.1); Sodium 138 mmol/L (136-145)
[2020-01-25] MEDS: NIFEdipine XL 60 MG TAB PO SCH (10:21)
[2020-01-25] MEDS: Sodium Bicarbonate Tab 325 MG TAB PO SCH ×3 (10:22→20:29)
[2020-01-25] MEDS: Pantoprazole 40 MG VIAL IVP SCH ×2 (10:22→20:30)
[2020-01-25] MEDS: Carvedilol 3.125 MG TAB PO SCH ×3 (10:22→16:36)
--- NOTE | 2020-01-25 10:43 | PDOC.HOSPP ---
- Subjective Encounter Date: 01/25/20 Encounter Time: 10:00 Subjective: pt up in bed no complains. she is a bit nervous about her procedure in am. - Objective Vital Signs & Weight: Vital Signs (12 hours) Temp Pulse Resp BP Pulse Ox 01/25/20 08:41 98.8 F 93 16 130/62 97 01/25/20 03:44 98.4 F 83 20 136/64 93 L Weight Admit Weight 121 lb 14.656 oz Weight 135 lb 8 oz Most Recent Monitor Data Heart Rate from ECG 94 NIBP 131/72 NIBP BP-Mean 91 Respiration from ECG 16 SpO2 100 I&O: 01/24/20 01/25/20 01/26/20 06:59 06:59 06:59 Intake Total 2080 2520 Output Total 675 2525 Balance 1405 -5 Result Diagrams: 01/25/20 04:36 01/25/20 04:36 Additional Labs: Accuchecks 01/25/20 01/24/20 01/24/20 05:40 20:45 16:50 POC Glucose 152 H 168 H 185 H 01/24/20 11:19 POC Glucose 190 H Hospitalist ROS - Review of Systems Respiratory: denies: cough, dry, shortness of breath, hemoptysis, SOB with excertion, pleuritic pain, sputum, wheezing, other Cardiovascular: denies: chest pain, palpitations, orthopnea, paroxysmal noc. dyspnea, edema, light headedness, other Gastrointestinal: denies: nausea, vomiting, abdominal pain, diarrhea, constipation, melena, hematochezia, other - Medication Medications: Active Medications Generic Name Dose Route Start Last Admin Trade Name Freq PRN Reason Stop Dose Admin Acetaminophen/Codeine Phosphate 1 tab 01/23/20 07:42 01/24/20 03:19 Tylenol #3 PO 01/26/20 08:59 1 tab Q4H PRN Administration Mild Pain (1-3) Atorvastatin Calcium 40 mg 01/22/20 21:00 01/24/20 21:49 Lipitor PO 01/25/20 21:01 40 mg HS ALEJANDRA Administration Benzonatate 100 mg 01/23/20 04:33 01/23/20 20:43 Tessalon PO 01/26/20 08:59 100 mg TID PRN Administration Cough Carvedilol 3.125 mg 01/24/20 12:00 01/25/20 10:22 Coreg PO 3.125 mg TID-WM ALEJANDRA Administration Hydralazine HCl 10 mg 01/18/20 13:20 01/24/20 03:12 Apresoline SLOW IVP 01/26/20 08:59 10 mg Q4H PRN Administration SBP > 180 and HR < 70 Insulin Human Lispro 0 units 01/18/20 13:20 01/24/20 19:10 Humalog SC 01/26/20 08:59 2 unit .MODERATE SLIDING SC PRN Administration Moderate Correctional Scale Levofloxacin 250 mg 01/23/20 06:00 01/25/20 05:25 Levaquin PO 01/26/20 08:59 250 mg 0600 ALEJANDRA Administration Lisinopril 20 mg 01/24/20 09:00 01/24/20 08:36 Zestril PO 20 mg DAILY ALEJANDRA Administration Melatonin 6 mg 01/22/20 20:39 01/24/20 21:50 Melatonin PO 01/26/20 08:59 6 mg HS PRN Administration Insomnia Nifedipine 60 mg 01/24/20 09:00 01/25/20 10:21 Procardia Xl PO 60 mg DAILY ALEJANDRA Administration Pantoprazole Sodium 40 mg 01/23/20 09:00 01/25/20 10:22 Protonix IVP 01/26/20 08:59 40 mg Q12HR ALEJANDRA Administration Sertraline HCl 100 mg 01/24/20 09:00 01/25/20 10:22 Zoloft PO 100 mg DAILY ALEJANDRA Administration Sodium Bicarbonate 650 mg 01/21/20 15:00 01/25/20 10:22 Bicarbonate, Sodium PO 01/26/20 08:59 650 mg TID ALEJANDRA Administration Trazodone HCl 50 mg 01/24/20 21:00 01/24/20 21:49 Desyrel PO 50 mg HS ALEJANDRA Administration - Exam Neck: negative: supple, symmetric, no JVD, no thyromegaly, no lymphadenopathy, no carotid bruit, JVD Heart: negative: RRR, no murmur, no gallops, no rubs, normal peripheral pulses, irregular, diminshed peripheral pulses, murmur present, II/IV, III/IV Respiratory: negative: CTAB, no wheezes, no rales, no ronchi, normal chest expansion, no tachypnea, normal percussion, rales, rhonchi, tachypneic, wheezes Gastrointestinal: negative: soft, non-tender, non-distended, normal bowel sounds , no palpable masses, no hepatomegaly, no splenomegaly, no bruit, no guarding, no rigidity, tender to palpation, distended, diminished bowl sounds, voluntary guarding Hosp A/P (1) Acute respiratory failure with hypoxemia Code(s): J96.01 - ACUTE RESPIRATORY FAILURE WITH HYPOXIA Status: Acute (2) NSTEMI (non-ST elevated myocardial infarction) Code(s): I21.4 - NON-ST ELEVATION (NSTEMI) MYOCARDIAL INFARCTION Status: Acute (3) Pneumonia Code(s): J18.9 - PNEUMONIA, UNSPECIFIED ORGANISM Status: Acute (4) Chronic kidney disease, stage 4 (severe) Code(s): N18.4 - CHRONIC KIDNEY DISEASE, STAGE 4 (SEVERE) Status: Chronic (5) Diabetes mellitus type 2 in nonobese Code(s): E11.9 - TYPE 2 DIABETES MELLITUS WITHOUT COMPLICATIONS Status: Chronic (6) Hypertension Code(s): I10 - ESSENTIAL (PRIMARY) HYPERTENSION Status: Chronic - Plan Patient is a 64-year-old female with a history of hypertension diabetes and CKD who initially presented to the hospital complains of shortness of breath. Patient was initially put on BiPAP and was found to be hypoxic with an elevated troponin. Patient had a COVID screen which was negative. She was noted to have some ST segment depression and cardiology was consulted. She underwent a cardiac cath on 01/17 which indicated severe multivessel disease recommended bypass. Patient continued to have significant shortness of breath at this time pulmonary was consulted. Patient underwent intubation which appears to be on . Patient was extubated successfully on 01/20. Patient has chronic kidney disease for which nephrology has been consulted. She has been seen by CV surgery and will undergo a bypass probably on Sunday. 01/23 pt to undergo surgery on Sunday. will titrate oxygen down. will hold lisinopril for now. 01/24 pt's creatinine trends upwards. will continue to monitor. surgery on sunday.
--- NOTE | 2020-01-25 12:04 | PRG ---
DATE OF SERVICE: SERVICE: Renal Medicine. SUBJECTIVE: Ms. Parra is a 64-year-old female, who was initially admitted for pneumonia/acute respiratory failure. During the initial workup, she was found to have elevated troponin I and underwent a cardiac cath, which showed a three-vessel disease. Cardiothoracic Surgery has evaluated this patient and a planned CABG has been made. We are following up this patient for acute kidney injury on top of her chronic renal failure. No new complaints. She is feeling better today. No chest pain or shortness of breath. OBJECTIVE: VITAL SIGNS: Blood pressure 130/62, heart rate 93, respiratory rate 16, temperature 98.8, and O2 saturation 97% on room air. GENERAL: The patient is awake, alert, comfortable, not in distress. SKIN: Adequate turgor. HEENT: She has slightly pale conjunctivae. Anicteric sclerae. NECK: No neck mass. No carotid bruits. No JVD. CHEST: No deformities. LUNGS: Decreased breath sounds. HEART: Normal sinus rhythm. No murmur. No gallops. No rubs. ABDOMEN: Globular, soft, and nontender. No masses. EXTREMITIES: No edema. MEDICATIONS: Medications of January 25, 2020, reviewed. LABORATORY DATA: Laboratories of January 25, 2020; white count 9.5, hemoglobin 8.9. Sodium 138, potassium 4.2, chloride 108, carbon dioxide 20, BUN 22, creatinine 2.53, glucose 117, calcium 8.1. ASSESSMENT AND PLAN: 1. Acute kidney injury/chronic renal failure, superimposed prerenal azotemia. Slightly higher creatinine today at 2.5. Agree with IV hydration. We will increase normal saline from 50-75 mL/h. There is no indication for any dialytic intervention. 2. Three-vessel coronary artery disease-for planned CABG. 3. Anemia, borderline. We will continue to observe. 4. Pneumonia, much improved. The patient is extubated and off ventilator support. Recheck basic met, CBC in a.m. Job ID: [id number]
[2020-01-25] MEDS: HumaLOG 300 UNITS/3 ML VIAL SC PRN ×2 (12:26→17:56)
[2020-01-25] MEDS: traZODone HCl 50 MG TAB PO SCH (20:30)
[2020-01-25] MEDS: Atorvastatin Calcium 40 MG TAB PO SCH (20:30)
[2020-01-25] MEDS: Sodium Chloride 0.9% 1,000 ML IV SCH (20:30)
[2020-01-25] MEDS ORDERED: Sodium Chloride 0.9% 1,000 ML IV SCH (22:00)
[2020-01-26] MEDS ORDERED: Furosemide 20 MG/2 ML VIAL SLOW IVP SCH (04:45)
--- NOTE | 2020-01-26 04:45 | PDOC.EVN ---
Event Note - Event Note Event Note: Was called by nursing that patient had ambulated to the bathroom with assistance and was now markedly short of breath. 91% on RA and then 95% on 1.5L. IVF had been started at 2200 on patient per nephrology. She is scheduled for a CABG in the am for severe cardiac disease. She states she has felt short of breath before with her history of COPD but this "felt different." Able to maintain O2 sats once placed on 1.5L NC. STAT EKG and chest xray ordered. Held IVF until chest xray results. Went to room and examined pt. She had some difficulty speaking in full sentences. Bilateral upper lung sounds with fine crackles tight, diminished bilateral lower lung sounds. Dr. Melvin informed of patient condition. Awaiting EKG and chest xray for further orders. Patient states she is feeling slightly better when sitting up and resting in bed.
[2020-01-26 04:51] LABS: #Basophils 0.1 thou/uL (0.0-0.2); #Eosinphils 0.2 thou/uL (0.0-0.7); #Lymphocytes 1.8 thou/uL (1.20-3.40); #Monocytes 0.6 thou/uL (0.11-0.59); %Eosinophils 2.3 % (0.0-10.0); %Lymphocytes 18.3 % (21.0-51.0); %Monocytes 6.3 % (0.0-10.0); %Neutrophils 72.1 % (42.0-75.0); Hemoglobin 9.5 g/dL (12.0-16.0); Mean Corpuscular HGB CONC 32.8 g/dL (32.0-36.0); Mean Corpuscular Hemoglobin 30.9 pg (27.0-31.0); Mean Corpuscular Volume 94.1 fL (78.0-98.0); Mean Platelet Volume 7.6 fL (7.4-10.4); Platelet Count 360 thou/uL (130-400); RBC Distribution Width 12.6 % (11.5-14.5); Red Blood Cell (RBC) Count 3.07 mill/uL (4.20-5.40); White Blood Cell (WBC) Count 9.8 thou/uL (4.8-10.8)
[2020-01-26] MEDS: Carvedilol 3.125 MG TAB PO SCH (04:58)
[2020-01-26 05:02] LABS: Anion Gap 15 mmol/L (10-20); BUN (Urea Nitrogen) 26 mg/dL (9.8-20.1); Calc. Creatinine Clearance 22 mL/min (70-130); Calcium 8.2 mg/dL (7.8-10.44); Carbon Dioxide 20 mmol/L (23-31); Chloride 108 mmol/L (98-107); Eosinophils 1 % (0-10); Estimated GFR-MDRD 20; Glucose 164 mg/dL (80-115); Hemoglobin 9.3 g/dL (12.0-16.0); Hypochromia SLIGHT = 6-15 cells (100X) (0-5/hpf); Lymphocytes 14 % (21-51); MDiff Complete? YES; Mean Corpuscular HGB CONC 33.2 g/dL (32.0-36.0); Mean Corpuscular Hemoglobin 31.3 pg (27.0-31.0); Mean Corpuscular Volume 94.3 fL (78.0-98.0); Mean Platelet Volume 7.4 fL (7.4-10.4); Monocytes 1 % (0-10); Neutrophil 84 % (42-75); Platelet Count 358 thou/uL (130-400); Platelet Morphology Comment Appears Adequate; Potassium 4.1 mmol/L (3.5-5.1); RBC Distribution Width 12.7 % (11.5-14.5); Red Blood Cell (RBC) Count 2.97 mill/uL (4.20-5.40); Sodium 139 mmol/L (136-145); White Blood Cell (WBC) Count 10.1 thou/uL (4.8-10.8)
[2020-01-26] MEDS ORDERED: Albumin 5% 500 ML ONE (06:37)
[2020-01-26] MEDS ORDERED: Phenylephrine 10 MG/ML VIAL ONE (06:38)
[2020-01-26] MEDS ORDERED: Fentanyl 250 MCG/5 ML VIAL ONE (06:38)
[2020-01-26] MEDS ORDERED: Dexmedetomidine 200 MCG/2 ML VIAL ONE (06:38)
[2020-01-26] MEDS ORDERED: Midazolam HCl 2 mg/2 ml Vial ONE ×2 (06:38→16:50)
[2020-01-26] MEDS ORDERED: Insulin Regular 300 UNITS/3 ML VIAL ONE (07:07)
[2020-01-26] MEDS ORDERED: Albuterol Sulfate 2.5 mg/3 ml Neb ONE (07:09)
[2020-01-26] MEDS ORDERED: PHENYLEPHRINE-NS 100 MCG/ML 10 ML SYRINGE ONE ×2 (07:10→09:40)
[2020-01-26] MEDS ORDERED: Heparin 10,000 UNITS/1 ML VIAL 30,000 UNITS in Sodium Chloride 0.9% 1,000 ML FS SCH (07:15)
--- NOTE | 2020-01-26 08:15 | RAD ---
PORTABLE CHEST: HISTORY: Chest pain. COMPARISON: 01/24/2020. FINDINGS: Linear opacity in the right mid lung consistent with atelectasis and infiltrate. Hazy infiltrate in the right lower lung. Borderline cardiomegaly with mild vascular engorgement. Probable small right effusion. Left lung ap pears clear of infiltrate. IMPRESSION: Right mid lung atelectasis with right mid and lower lung infiltrate and/or atelectasis with effusion. POS: [facility]
[2020-01-26] MEDS ORDERED: Aminocaproic Acid 5 GM/20 ML VIAL ONE (09:40)
[2020-01-26] MEDS ORDERED: Papaverine 60 MG/2 ML VIAL ONE (09:40)
[2020-01-26] MEDS ORDERED: Sodium Bicarb 50 MEQ/50 ML Abboject 8.4% SYRINGE ONE (09:40)
[2020-01-26] MEDS ORDERED: Heparin 5,000 UNITS/ML VIAL ONE (09:40)
[2020-01-26] MEDS ORDERED: Cardioplegic Soln 1,000 ML BAG ONE (09:40)
[2020-01-26] MEDS ORDERED: Thrombin 5000 UNITS/5 ML VIAL ONE (09:40)
[2020-01-26] MEDS ORDERED: Dexamethasone 20 MG/5 ML VIAL ONE (09:40)
[2020-01-26] MEDS ORDERED: Magnesium Sulfate 1 GM/2 ML VIAL ONE (09:40)
[2020-01-26] MEDS ORDERED: Protamine Sulfate 250 MG/25 ML VIAL ONE (09:40)
[2020-01-26] MEDS ORDERED: Rocuronium Bromide 10 MG/ML (10ML VIAL) ONE (09:40)
[2020-01-26] MEDS ORDERED: Lidocaine 2% PF 5 ML VIAL ONE (09:40)
[2020-01-26] MEDS ORDERED: Heparin 30,000 units/30 ml VIAL ONE (09:40)
[2020-01-26] MEDS ORDERED: Ondansetron PF 4 MG/2 ML Vial ONE (09:40)
[2020-01-26] MEDS ORDERED: Potassium Chloride 60 MEQ/30 ML VIAL ONE (09:40)
[2020-01-26] MEDS ORDERED: Calcium Chloride 1 GM/10 ML Abboject SYRINGE ONE (09:40)
[2020-01-26] MEDS ORDERED: EPHEDRINE 25 MG/5 ML SYRINGE ONE (09:40)
[2020-01-26] MEDS ORDERED: niCARdipine 25 MG in Sodium Chloride 0.9% 250 ML 250 ML IVPB PRN (11:38)
[2020-01-26] MEDS ORDERED: Fentanyl 100 MCG/2 ML VIAL SLOW IVP PRN (11:38)
[2020-01-26] MEDS ORDERED: Hetastarch 6% 500 ML 500 ML IVPB PRN (11:38)
[2020-01-26] MEDS ORDERED: Promethazine HCl 25 MG/ML VIAL IM PRN (11:38)
[2020-01-26] MEDS ORDERED: Bisacodyl 10 MG SUPP PR PRN (11:38)
[2020-01-26] MEDS ORDERED: Morphine 2 MG/ML VIAL SLOW IVP PRN (11:38)
[2020-01-26] MEDS ORDERED: Nitroglycerin 50 MG/250 ML BOT 250 ML IVPB PRN (11:38)
[2020-01-26] MEDS ORDERED: hydrALAZINE 20 MG/ML VIAL SLOW IVP PRN (11:38)
[2020-01-26] MEDS ORDERED: DOPamine 400 MG/D5W 250 ML 250 ML IVPB SCH (11:38)
[2020-01-26] MEDS ORDERED: Post-Op Insulin Drip Protocol IVPB ONE (11:38)
[2020-01-26] MEDS ORDERED: Mag-Al 1200 mg/1200 mg/30 ML UDCUP PO PRN (11:38)
[2020-01-26] MEDS ORDERED: Acetaminophen 325 MG TAB PO PRN (11:38)
[2020-01-26] MEDS ORDERED: Bisacodyl 5 MG TAB PO PRN (11:38)
[2020-01-26] MEDS ORDERED: Guaifenesin DM 100-10/5 ML UDCUP PO PRN (11:38)
[2020-01-26] MEDS ORDERED: Dextrose 5% in Water 1,000 ML IV PRN (11:53)
[2020-01-26] MEDS ORDERED: Dextrose 50% Abboject 50 ML SYRINGE SLOW IVP PRN (11:53)
[2020-01-26] MEDS ORDERED: HUMULIN R 100 UNITS in Sodium Chloride 0.9% 100 ML IVPB SCH (11:53)
[2020-01-26 12:05] LABS: Actual Bicarbonate (HCO3a) 19.9 mEq/L (22-28); Base Excess (BEa) -4.7 mEq/L (-2.0 to +3.0); CO2 Tension 35.2 mmHg (35.0-45.0); Calcium, Ionized (arterial) 1.13 mmol/L (1.12-1.30); Carboxyhemoglobin (COHb) 0.1 gm% (0.0-3.0); Hemoglobin (Hb) 12.1 g/dL (12.0-16.0); O2 Tension (PaO2), arterial 160.7 mmHg (> 80.0); Potassium - ABG Lab 3.72 mmol/L (3.70-5.30); pH, Arterial 7.37 (7.35-7.45)
[2020-01-26 12:08] LABS: Puncture Site LINE
[2020-01-26 12:24] LABS: INR-International Normal Ratio 1.3; Prothrombin Time 16.5 sec (12.0-14.7)
[2020-01-26 12:24] LABS: #Basophils 0.1 thou/uL (0.0-0.2); #Eosinphils 0.2 thou/uL (0.0-0.7); #Lymphocytes 2.1 thou/uL (1.20-3.40); #Monocytes 1.1 thou/uL (0.11-0.59); #Neutrophils 15.7 thou/uL (1.40-6.50); %Basophils 0.4 % (0.0-1.0); %Monocytes 5.7 % (0.0-10.0); %Neutrophils 81.8 % (42.0-75.0); Hemoglobin 11.7 g/dL (12.0-16.0); Mean Corpuscular HGB CONC 33.1 g/dL (32.0-36.0); Mean Corpuscular Hemoglobin 30.9 pg (27.0-31.0); Mean Corpuscular Volume 93.2 fL (78.0-98.0); Mean Platelet Volume 7.1 fL (7.4-10.4); Platelet Count 225 thou/uL (130-400); RBC Distribution Width 13.1 % (11.5-14.5); Red Blood Cell (RBC) Count 3.78 mill/uL (4.20-5.40); White Blood Cell (WBC) Count 19.1 thou/uL (4.8-10.8)
[2020-01-26 12:25] LABS: PTT 34.1 sec (22.9-36.1)
[2020-01-26 12:36] LABS: Anion Gap 14 mmol/L (10-20); BUN (Urea Nitrogen) 25 mg/dL (9.8-20.1); Calc. Creatinine Clearance 25 mL/min (70-130); Calcium 7.7 mg/dL (7.8-10.44); Carbon Dioxide 19 mmol/L (23-31); Chloride 112 mmol/L (98-107); Estimated GFR-MDRD 23; Glucose 132 mg/dL (80-115); Potassium 3.8 mmol/L (3.5-5.1); Sodium 141 mmol/L (136-145)
--- NOTE | 2020-01-26 12:39 | PRG ---
DATE OF SERVICE: 01/26/2020 SUBJECTIVE: Irina Parra who has seen Dr. Henry 4 days ago. She underwent cardiac intervention and cardiac cath followed by bypass surgery x3. Postop, she is on the vent. X-ray shows no infiltrates, minimal cardiomegaly. It appears renal function at her baseline with creatinine of 2.47. OBJECTIVE: VITAL SIGNS: Pulse 60, blood pressure 180/80, saturations are 96%, respirations 18. CHEST: No wheezing. No crackles. CARDIAC: Normal S1 and S2. No gallops. ABDOMEN: No mass. LABORATORY DATA: PO2 is 160, pCO2 is 35, pH 7.33. IMPRESSION: Status post coronary artery bypass grafting x3; diabetes; chronic renal failure; recent community-acquired pneumonia, appears to be resolved. PLAN: Discussed with the nursing staff, they can wean per protocol. Pulmonary/Critical Care will follow while in the ICU. Aggressive PT, supportive care. One-half hour of critical time. Job ID: [id number]
[2020-01-26] MEDS: Ondansetron PF 4 MG/2 ML Vial IVP PRN (12:54)
[2020-01-26] MEDS: Insulin Regular 300 UNITS/3 ML VIAL SC PRN ×3 (12:59→23:37)
--- NOTE | 2020-01-26 13:44 | RAD ---
PORTABLE CHEST 1 VIEW: Date: 01/26/2020 Time: 1200 hours HISTORY: Postop open heart surgery. Respiratory failure. FINDINGS/IMPRESSION: Comparison made with earlier exam at 0400 hours. Interval changes of median sternotomy seen. There is an endotracheal tube with tip at the level of th e clavicular heads. A right subclavian central line is present with tip in the projection of the righ t atrium. Mediastinal drain and bilateral chest tubes have been placed. No pneumothoraces or large ef fusions are seen. Opacities in the right lung are again noted. POS: [facility]
[2020-01-26] MEDS: Fentanyl 100 MCG/2 ML VIAL SLOW IVP PRN ×3 (14:13→19:45)
[2020-01-26] MEDS: Sodium Chloride 0.9% 1,000 ML IV SCH ×3 (14:54→21:32)
[2020-01-26 15:49] LABS: Actual Bicarbonate (HCO3a) 15.9 mEq/L (22-28); Base Excess (BEa) -9.9 mEq/L (-2.0 to +3.0); CO2 Tension 34.4 mmHg (35.0-45.0); Calcium, Ionized (arterial) 1.15 mmol/L (1.12-1.30); Carboxyhemoglobin (COHb) 0.3 gm% (0.0-3.0); Hemoglobin (Hb) 12.5 g/dL (12.0-16.0); O2 Tension (PaO2), arterial 109.6 mmHg (> 80.0); Potassium - ABG Lab 3.62 mmol/L (3.70-5.30); pH, Arterial 7.28 (7.35-7.45)
[2020-01-26 15:54] LABS: Puncture Site LINE
[2020-01-26] MEDS ORDERED: Sodium Bicarb 50 MEQ/50 ML Abboject 8.4% SYRINGE IVP SCH (16:30)
[2020-01-26] MEDS ORDERED: DOBUTamine 500 mg/250 ml 250 ML IVPB SCH (16:45)
[2020-01-26] MEDS: CEFAZOLIN 2 GM in Premix Bag 1 BAG IVPB SCH ×2 (17:02→23:34)
[2020-01-26 17:51] LABS: Potassium 3.4 mmol/L (3.5-5.1)
--- NOTE | 2020-01-26 18:29 | PDOC.HOSPP ---
- Subjective Encounter Date: 01/26/20 Encounter Time: 17:00 Subjective: pt up in bed no complains - Objective Vital Signs & Weight: Vital Signs (12 hours) Temp Pulse Resp BP Pulse Ox 01/26/20 17:11 99 01/26/20 16:00 16 01/26/20 15:24 12 01/26/20 13:01 75 01/26/20 12:09 81 01/26/20 11:56 98.6 F 79 14 137/61 100 Weight Admit Weight 129 lb 13.636 oz Weight 135 lb 8 oz Most Recent Monitor Data Heart Rate from ECG 94 NIBP 131/72 NIBP BP-Mean 91 Respiration from ECG 16 SpO2 100 I&O: 01/25/20 01/26/20 01/27/20 06:59 06:59 06:59 Intake Total 2520 1335 632 Output Total 2525 1125 Balance -5 6438 -764 Result Diagrams: 01/26/20 17:24 01/26/20 17:24 Additional Labs: Accuchecks 01/26/20 01/26/20 01/26/20 17:38 12:09 12:00 POC Glucose 154 H 131 H 122 H 01/26/20 01/26/20 01/26/20 11:09 10:49 10:03 POC Glucose 94 125 H 139 H 01/26/20 01/26/20 01/26/20 09:40 07:53 05:35 POC Glucose 158 H 195 H 190 H 01/25/20 20:50 POC Glucose 134 H Hospitalist ROS - Review of Systems Cardiovascular: denies: chest pain, palpitations, orthopnea, paroxysmal noc. dyspnea, edema, light headedness, other Gastrointestinal: denies: nausea, vomiting, abdominal pain, diarrhea, constipation, melena, hematochezia, other Genitourinary: denies: dysuria, frequency, incontinence, hematuria, retention, other - Medication Medications: Active Medications Generic Name Dose Route Start Last Admin Trade Name Freq PRN Reason Stop Dose Admin Albuterol/Ipratropium 3 ml 01/26/20 13:00 01/26/20 13:00 Duoneb NEB 3 ml [id number] ALEJANDRA Administration Fentanyl 25 mcg 01/26/20 11:38 01/26/20 17:17 Sublimaze SLOW IVP 01/28/20 11:26 25 mcg Q2H PRN Administration Moderate Pain (4-6) Cefazolin Sodium/Dextrose 2 gm 50 mls @ 100 mls/hr 01/26/20 16:00 01/26/20 17 :02 / Device IVPB 01/27/20 08:29 50 mls [id number] ALEJANDRA Administration Nitroglycerin/Dextrose 250 mls @ 0 mls/hr 01/26/20 11:38 01/26/20 12:22 Nitroglycerin 50 Mg/250 Ml Bot IVPB 250 mls PRN PRN Administration To Maintain SBP< 140mmHG Protocol Titrate Sodium Chloride 1,000 mls @ 100 mls/hr 01/26/20 11:38 01/26/20 14:54 Normal Saline 0.9% IV Not Given .Q10H ALEJANDRA Insulin Human Regular 0 units 01/26/20 11:53 01/26/20 12:59 Humulin R SC 3 unit Q4H PRN Administration POST OP SLIDING SCALE Protocol Morphine Sulfate 2 mg 01/26/20 11:38 01/26/20 12:14 Morphine SLOW IVP 2 mg Q15MIN PRN Administration Severe Pain (7-10) Ondansetron HCl 4 mg 01/26/20 11:38 01/26/20 12:54 Zofran IVP 4 mg Q6H PRN Administration Nausea/Vomiting - Exam Heart: negative: RRR, no murmur, no gallops, no rubs, normal peripheral pulses, irregular, diminshed peripheral pulses, murmur present, II/IV, III/IV Respiratory: negative: CTAB, no wheezes, no rales, no ronchi, normal chest expansion, no tachypnea, normal percussion, rales, rhonchi, tachypneic, wheezes Gastrointestinal: negative: soft, non-tender, non-distended, normal bowel sounds , no palpable masses, no hepatomegaly, no splenomegaly, no bruit, no guarding, no rigidity, tender to palpation, distended, diminished bowl sounds, voluntary guarding Hosp A/P (1) Acute respiratory failure with hypoxemia Code(s): J96.01 - ACUTE RESPIRATORY FAILURE WITH HYPOXIA Status: Acute (2) NSTEMI (non-ST elevated myocardial infarction) Code(s): I21.4 - NON-ST ELEVATION (NSTEMI) MYOCARDIAL INFARCTION Status: Acute (3) Pneumonia Code(s): J18.9 - PNEUMONIA, UNSPECIFIED ORGANISM Status: Acute (4) Chronic kidney disease, stage 4 (severe) Code(s): N18.4 - CHRONIC KIDNEY DISEASE, STAGE 4 (SEVERE) Status: Chronic (5) Diabetes mellitus type 2 in nonobese Code(s): E11.9 - TYPE 2 DIABETES MELLITUS WITHOUT COMPLICATIONS Status: Chronic (6) Hypertension Code(s): I10 - ESSENTIAL (PRIMARY) HYPERTENSION Status: Chronic - Plan Patient is a 64-year-old female with a history of hypertension diabetes and CKD who initially presented to the hospital complains of shortness of breath. Patient was initially put on BiPAP and was found to be hypoxic with an elevated troponin. Patient had a COVID screen which was negative. She was noted to have some ST segment depression and cardiology was consulted. She underwent a cardiac cath on 01/17 which indicated severe multivessel disease recommended bypass. Patient continued to have significant shortness of breath at this time pulmonary was consulted. Patient underwent intubation which appears to be on . Patient was extubated successfully on 01/20. Patient has chronic kidney disease for which nephrology has been consulted. She has been seen by CV surgery and will undergo a bypass probably on Sunday. 01/23 pt to undergo surgery on Sunday. will titrate oxygen down. will hold lisinopril for now. 01/24 pt's creatinine trends upwards. will continue to monitor. surgery on Sunday. 01/25 CABG she is in icu will continue to monitor. will replace electrolytes.
[2020-01-26] MEDS: HYDROcodone/Acetaminophen 5/325 mg Tablet PO PRN ×2 (19:48→23:33)
[2020-01-26] MEDS: NIFEdipine XL 60 MG TAB PO SCH (20:06)
[2020-01-26 21:15] LABS: Actual Bicarbonate (HCO3a) 20.3 mEq/L (22-28); Base Excess (BEa) -5.3 mEq/L (-2.0 to +3.0); CO2 Tension 39.8 mmHg (35.0-45.0); Calcium, Ionized (arterial) 1.09 mmol/L (1.12-1.30); Carboxyhemoglobin (COHb) 0.2 gm% (0.0-3.0); Hemoglobin (Hb) 11.8 g/dL (12.0-16.0); O2 Tension (PaO2), arterial 89.5 mmHg (> 80.0); Potassium - ABG Lab 3.52 mmol/L (3.70-5.30); pH, Arterial 7.33 (7.35-7.45)
[2020-01-26 21:16] LABS: Puncture Site ALINE
[2020-01-27] MEDS: HYDROcodone/Acetaminophen 5/325 mg Tablet PO PRN ×5 (03:04→20:42)
[2020-01-27 03:23] LABS: #Lymphocytes 0.6 thou/uL (1.20-3.40); #Monocytes 0.9 thou/uL (0.11-0.59); #Neutrophils 13.5 thou/uL (1.40-6.50); %Basophils 0.1 % (0.0-1.0); %Eosinophils 0.1 % (0.0-10.0); %Lymphocytes 4.1 % (21.0-51.0); %Monocytes 5.9 % (0.0-10.0); %Neutrophils 89.8 % (42.0-75.0); Hemoglobin 10.2 g/dL (12.0-16.0); Mean Corpuscular HGB CONC 33.6 g/dL (32.0-36.0); Mean Corpuscular Hemoglobin 31.2 pg (27.0-31.0); Mean Corpuscular Volume 92.7 fL (78.0-98.0); Mean Platelet Volume 8.3 fL (7.4-10.4); Platelet Count 200 thou/uL (130-400); RBC Distribution Width 13.9 % (11.5-14.5); Red Blood Cell (RBC) Count 3.26 mill/uL (4.20-5.40)
[2020-01-27 03:45] LABS: Anion Gap 13 mmol/L (10-20); BUN (Urea Nitrogen) 27 mg/dL (9.8-20.1); Calc. Creatinine Clearance 24 mL/min (70-130); Calcium 7.3 mg/dL (7.8-10.44); Carbon Dioxide 22 mmol/L (23-31); Chloride 108 mmol/L (98-107); Estimated GFR-MDRD 21; Glucose 216 mg/dL (80-115); Potassium 3.6 mmol/L (3.5-5.1); Sodium 139 mmol/L (136-145)
[2020-01-27] MEDS: Insulin Regular 300 UNITS/3 ML VIAL SC PRN (03:52)
[2020-01-27] MEDS ORDERED: Dextrose 5% in Water 1,000 ML IV PRN (06:15)
[2020-01-27] MEDS ORDERED: Insulin Regular 300 UNITS/3 ML VIAL SC PRN (06:15)
[2020-01-27] MEDS ORDERED: Dextrose 50% Abboject 50 ML SYRINGE SLOW IVP PRN (06:15)
[2020-01-27] MEDS: Sodium Chloride 0.9% 1,000 ML IV SCH (06:36)
--- NOTE | 2020-01-27 07:13 | RAD ---
CHEST 1 VIEW: Date: 01/27/2020 INDICATION: History of open heart surgery. COMPARISON: Prior study dated 01/26/2020. IMPRESSION: The left-sided thoracostomy tube, right subclavian central venous catheter, and midline mediastinal d rain is stable. Post CABG change is stable. Mild cardiomegaly and pulmonary vascular congestion remai n. Area of subsegmental volume loss appears slightly more pronounced in the right lower lobe. There a re worsening small bilateral pleural effusions. No pneumothorax is evident. Osseous structures are un changed. POS: [facility]
--- NOTE | 2020-01-27 07:16 | PRG ---
DATE OF SERVICE: 01/27/2020 The patient is postop day #1 from coronary artery bypass graft x3. She is sitting up in the chair this morning. Blood pressure 136 and heart rate 90. She has usual postoperative discomfort. Denies nausea, but is thirsty. Her lungs are clear to auscultation anteriorly with shallow respiratory effort. Chest tube output is about 400 since surgery and her chest x-ray does show a [id number] left pleural effusion and a small right pleural effusion. Her laboratory values; her hemoglobin is stable at about 10 g after 2 units of intraoperative transfusion. Her creatinine is 2.3, which is similar to preop levels and up slightly since yesterday post CABG. Her potassium is 3.6, and I have elected not to treat it due to her precarious renal function. Her sugars have been somewhat elevated and she is on a sliding scale insulin and we will start her glimepiride. She is being maintained on a low dose of dopamine at 2.5 mcg per kg per minute for her poor EF and her blood pressure is being maintained around 150 using nitroglycerin as needed. Overall, she is progressing well and will need medications for her congestive heart failure as her postoperative course moves along. Job ID: [id number]
[2020-01-27] MEDS: Famotidine 20 MG TAB PO SCH (08:06)
[2020-01-27] MEDS: Sodium Bicarbonate Tab 325 MG TAB PO SCH ×3 (08:06→20:43)
[2020-01-27] MEDS: Aspirin Chewable 81 MG TAB PO SCH (08:06)
[2020-01-27] MEDS: Ondansetron PF 4 MG/2 ML Vial IVP PRN ×2 (08:07→16:23)
[2020-01-27] MEDS: CEFAZOLIN 2 GM in Premix Bag 1 BAG IVPB SCH (08:07)
--- NOTE | 2020-01-27 08:07 | OP ---
DATE OF PROCEDURE: 01/26/2020 PREOPERATIVE DIAGNOSES: 1. Congestive heart failure. 2. Coronary artery disease. 3. Chronic kidney disease. PROCEDURE PERFORMED: Coronary artery bypass graft x3, left internal mammary artery good quality to a 2-mm left anterior descending, saphenous vein good quality to a 1.5-mm OM as it became intramyocardial and a 1.5-mm proximal PDA extending onto the distal right coronary artery, which was heavily diseased. RUBBER SPLICER: Osorio Trivedi MD TRANSFUSION: Two units of packed red cells. DESCRIPTION OF PROCEDURE: After adequate anesthesia had been obtained, the patient was prepped and draped. I performed a left greater saphenous vein endovascular vein harvest, following which I performed a median sternotomy. The left internal mammary artery was harvested. The patient heparinized. Mammary divided distally and passed posterior to the thymus gland. The left pleura was entered and about 400 or 500 mL of pleural fluid was aspirated and about 300 mL from the right pleura. The aorta was immobilized above the pericardial reflection, and following a pursestring sutures, aortic cannula was placed, following which the right atrium was cannulated after a pursestring suture. The patient's heart was quite full at that point and cardiopulmonary bypass was begun. The vessels were inspected for grafting. The aorta crossclamped and a liter of [place] cardioplegic solution was given. Following this, the distal right coronary artery was exposed just prior to the bifurcation and attempts to open this were not successful and it was oversewn here and the proximal PDA was opened and saphenous vein anastomosed here. Following completion of this, the OM was opened and similar saphenous vein anastomosis completed and finally [place] to LAD. Cross-clamp was removed and the partial occluding clamp placed and 2 proximal anastomoses were performed on the aortic root. Following completion of this, the distal anastomoses were inspected and were hemostatic. The patient was weaned from cardiopulmonary bypass. Cannulas were removed and protamine was given systemically. Mediastinal and bilateral pulmonary drains were placed, following which the sternum was reapproximated with #7 interrupted wire using vancomycin paste on the sternal edges, platelet-rich blood and platelet-poor plasma. Subcutaneous tissue and skin were closed in layers. Job ID: [id number]
[2020-01-27] MEDS ORDERED: Famotidine/PF 20 mg/2ml Vial SLOW IVP SCH (09:00)
[2020-01-27] MEDS ORDERED: glyBURIDE 5 MG TAB PO SCH (09:00)
--- NOTE | 2020-01-27 09:26 | PRG ---
DATE OF SERVICE: 01/27/2020 SUBJECTIVE: She is extubated yesterday as per the protocol, has done well postop except for some chest pain. X-ray shows some cardiomegaly, left lung atelectatic changes, small left pleural effusion. OBJECTIVE: CHEST: Reveals no wheezing, no crackles. CARDIAC: Normal S1, S2. No gallops. ABDOMEN: Soft. VITAL SIGNS: Temperature is 98, pulse 87, saturations are 96% on 2 L, and blood pressure 138/54. I's and O's have been slightly positive. LABORATORY DATA: All cultures are negative. IMPRESSION: Respiratory failure, previous pneumonia, congestive heart failure, coronary artery bypass graft, and azotemia. PLAN: Continue neb treatments, empiric antibiotics, supportive care. We will follow while in the ICU. Ambulation. PT as tolerated. Job ID: [id number]
--- NOTE | 2020-01-27 16:51 | PDOC.HOSPP ---
- Subjective Encounter Date: 01/27/20 Encounter Time: 15:00 Subjective: pt up in bed feels nauseated. - Objective Vital Signs & Weight: Vital Signs (12 hours) Temp Pulse Pulse Pulse Resp BP BP 01/27/20 16:00 98.5 F 01/27/20 14:03 91 16 01/27/20 13:05 83 95 144/71 H 144/76 H 01/27/20 12:00 98.1 F 01/27/20 08:00 98.4 F Pulse Ox Pulse Ox Pulse Ox 01/27/20 16:00 01/27/20 14:03 96 01/27/20 13:05 95 95 01/27/20 12:00 01/27/20 08:00 Weight Admit Weight 129 lb 13.636 oz Weight 130 lb 4.691 oz Most Recent Monitor Data Heart Rate from ECG 97 NIBP 142/71 NIBP BP-Mean 94 Respiration from ECG 21 SpO2 95 I&O: 01/26/20 01/27/20 01/28/20 06:59 06:59 06:59 Intake Total 1335 3184.1 240 Output Total 1875 445 Balance 1335 1309.1 -205 Result Diagrams: 01/27/20 03:10 01/27/20 03:10 Additional Labs: Accuchecks 01/27/20 01/27/20 01/26/20 16:22 12:09 23:42 POC Glucose 85 167 H 217 H 01/26/20 01/26/20 20:06 17:38 POC Glucose 191 H 154 H Hospitalist ROS - Review of Systems Cardiovascular: denies: chest pain, palpitations, orthopnea, paroxysmal noc. dyspnea, edema, light headedness, other Gastrointestinal: reports: nausea. denies: vomiting, abdominal pain, diarrhea, constipation, melena, hematochezia, other Genitourinary: denies: dysuria, frequency, incontinence, hematuria, retention, other - Medication Medications: Active Medications Generic Name Dose Route Start Last Admin Trade Name Freq PRN Reason Stop Dose Admin Hydrocodone Bitart/Acetaminophen 1 tab 01/26/20 11:38 01/26/20 19:48 [place] 5/325 PO 1 tab Q4H PRN Administration Moderate Pain (4-6) Hydrocodone Bitart/Acetaminophen 2 tab 01/26/20 11:38 01/27/20 16:24 [place] 5/325 PO 2 tab Q4H PRN Administration Severe Pain (7-10) Albuterol/Ipratropium 3 ml 01/26/20 13:00 01/27/20 14:03 Duoneb NEB 3 ml [id number] ALEJANDRA Administration Aspirin 81 mg 01/27/20 09:00 01/27/20 08:06 Aspirin Chewable PO 81 mg DAILY ALEJANDRA Administration Famotidine 20 mg 01/27/20 09:00 01/27/20 08:06 Pepcid PO 20 mg DAILY ALEJANDRA Administration Fentanyl 25 mcg 01/26/20 11:38 01/26/20 19:45 Sublimaze SLOW IVP 01/28/20 11:26 25 mcg Q2H PRN Administration Moderate Pain (4-6) Fentanyl 50 mcg 01/26/20 11:38 01/26/20 21:42 Sublimaze SLOW IVP 01/28/20 11:26 50 mcg Q2H PRN Administration Severe Pain (7-10) Glyburide 5 mg 01/27/20 09:00 01/27/20 08:07 Diabeta PO 5 mg DAILY ALEJANDRA Administration Nitroglycerin/Dextrose 250 mls @ 0 mls/hr 01/26/20 11:38 01/26/20 12:22 Nitroglycerin 50 Mg/250 Ml Bot IVPB 250 mls PRN PRN Administration To Maintain SBP< 140mmHG Protocol Titrate Dobutamine HCl/Dextrose 250 mls @ 4.61 mls/hr 01/26/20 16:45 01/26/20 18:34 Dobutamine 500 Mg/250 Ml IVPB 250 mls INF ALEJANDRA Administration Protocol 2.5 MCG/KG/MIN Sodium Chloride 1,000 mls @ 50 mls/hr 01/27/20 06:16 01/27/20 06:36 Normal Saline 0.9% IV 1,000 mls .Q20H ALEJANDRA Administration Insulin Human Regular 0 units 01/27/20 06:15 01/27/20 12:07 Humulin R SC 2 units .MILD SLIDING SCALE PRN Administration Mild Correctional Scale Ondansetron HCl 4 mg 01/26/20 11:38 01/27/20 16:23 Zofran IVP 4 mg Q6H PRN Administration Nausea/Vomiting Sodium Bicarbonate 650 mg 01/27/20 09:00 01/27/20 16:23 Bicarbonate, Sodium PO 650 mg TID ALEJANDRA Administration - Exam Neck: negative: supple, symmetric, no JVD, no thyromegaly, no lymphadenopathy, no carotid bruit, JVD Heart: negative: RRR, no murmur, no gallops, no rubs, normal peripheral pulses, irregular, diminshed peripheral pulses, murmur present, II/IV, III/IV Respiratory: negative: CTAB, no wheezes, no rales, no ronchi, normal chest expansion, no tachypnea, normal percussion, rales, rhonchi, tachypneic, wheezes Respiratory - other findings: chest tube placed Gastrointestinal: negative: soft, non-tender, non-distended, normal bowel sounds , no palpable masses, no hepatomegaly, no splenomegaly, no bruit, no guarding, no rigidity, tender to palpation, distended, diminished bowl sounds, voluntary guarding Extremities: 1+ LE edema Hosp A/P (1) Acute respiratory failure with hypoxemia Code(s): J96.01 - ACUTE RESPIRATORY FAILURE WITH HYPOXIA Status: Acute (2) NSTEMI (non-ST elevated myocardial infarction) Code(s): I21.4 - NON-ST ELEVATION (NSTEMI) MYOCARDIAL INFARCTION Status: Acute (3) Pneumonia Code(s): J18.9 - PNEUMONIA, UNSPECIFIED ORGANISM Status: Acute (4) Chronic kidney disease, stage 4 (severe) Code(s): N18.4 - CHRONIC KIDNEY DISEASE, STAGE 4 (SEVERE) Status: Chronic (5) Diabetes mellitus type 2 in nonobese Code(s): E11.9 - TYPE 2 DIABETES MELLITUS WITHOUT COMPLICATIONS Status: Chronic (6) Hypertension Code(s): I10 - ESSENTIAL (PRIMARY) HYPERTENSION Status: Chronic - Plan Patient is a 64-year-old female with a history of hypertension diabetes and CKD who initially presented to the hospital complains of shortness of breath. Patient was initially put on BiPAP and was found to be hypoxic with an elevated troponin. Patient had a COVID screen which was negative. She was noted to have some ST segment depression and cardiology was consulted. She underwent a cardiac cath on 01/17 which indicated severe multivessel disease recommended bypass. Patient continued to have significant shortness of breath at this time pulmonary was consulted. Patient underwent intubation which appears to be on . Patient was extubated successfully on 01/20. Patient has chronic kidney disease for which nephrology has been consulted. She has been seen by CV surgery and will undergo a bypass probably on Sunday. 01/23 pt to undergo surgery on Sunday. will titrate oxygen down. will hold lisinopril for now. 01/24 pt's creatinine trends upwards. will continue to monitor. surgery on Sunday. 01/25 CABG she is in icu will continue to monitor. will replace electrolytes. 01/26 pt feels nauseated. will monitor her. she still has chest tubes. creatinine is stable. blood sugars stable.
--- NOTE | 2020-01-27 18:01 | PRG ---
DATE OF SERVICE: 01/27/2020 SUBJECTIVE: Ms. Parra is doing much better today. No chest pain or pressure noted. She is seen sitting up. She is on low-dose dobutamine. No current complaints. Chest tube is still in place. OBJECTIVE: Vital Signs: Blood pressure 137/72, pulse 95, temperature afebrile. General: The patient is a pleasant woman, in no acute distress, appears stated age. Head, Eyes, Ears, Nose and Throat: Sclerae without icterus. Mouth: Moist mucous membranes, normal palate. Neck: No jugular venous distention. Carotid upstroke is brisk. No bruits bilaterally. Lungs: Clear to auscultation. Heart: Regular rate and rhythm, normal S1 and S2. Abdomen: Soft, nontender, nondistended. Extremities: No edema. PERTINENT LABORATORY DATA: Hemoglobin 10.2. Creatinine 2.3. IMPRESSION: 1. Coronary artery disease. 2. Status post bypass surgery. 3. Chronic renal insufficiency. RECOMMENDATIONS: 1. We will continue dobutamine overnight and discontinue in a.m. 2. Continue aspirin and add statin therapy. 3. Once she is off the dobutamine, we then add low-dose beta-amauri therapy if blood pressure tolerates. 4. Incentive spirometry and physical therapy. 5. Chest tube per Dr. Lai. Job ID: [id number]
[2020-01-27] MEDS: Atorvastatin Calcium 40 MG TAB PO SCH (20:43)
[2020-01-28] MEDS: Sodium Chloride 0.9% 1,000 ML IV SCH (02:52)
[2020-01-28 03:23] LABS: #Basophils 0.1 thou/uL (0.0-0.2); #Eosinphils 0.1 thou/uL (0.0-0.7); #Lymphocytes 0.9 thou/uL (1.20-3.40); #Neutrophils 13.9 thou/uL (1.40-6.50); %Basophils 0.4 % (0.0-1.0); %Eosinophils 0.4 % (0.0-10.0); %Lymphocytes 5.6 % (21.0-51.0); %Monocytes 6.5 % (0.0-10.0); %Neutrophils 87.2 % (42.0-75.0); Hemoglobin 10.1 g/dL (12.0-16.0); Mean Corpuscular HGB CONC 33.7 g/dL (32.0-36.0); Mean Corpuscular Hemoglobin 31.4 pg (27.0-31.0); Mean Corpuscular Volume 93.4 fL (78.0-98.0); Mean Platelet Volume 7.8 fL (7.4-10.4); Platelet Count 242 thou/uL (130-400); RBC Distribution Width 14.1 % (11.5-14.5); Red Blood Cell (RBC) Count 3.21 mill/uL (4.20-5.40); White Blood Cell (WBC) Count 15.9 thou/uL (4.8-10.8)
[2020-01-28 03:42] LABS: Anion Gap 13 mmol/L (10-20); BUN (Urea Nitrogen) 26 mg/dL (9.8-20.1); Calc. Creatinine Clearance 25 mL/min (70-130); Calcium 7.4 mg/dL (7.8-10.44); Carbon Dioxide 22 mmol/L (23-31); Chloride 104 mmol/L (98-107); Estimated GFR-MDRD 23; Glucose 66 mg/dL (80-115); Potassium 3.3 mmol/L (3.5-5.1); Sodium 136 mmol/L (136-145)
[2020-01-28] MEDS: HYDROcodone/Acetaminophen 5/325 mg Tablet PO PRN ×4 (06:42→21:01)
[2020-01-28] MEDS: Ondansetron PF 4 MG/2 ML Vial IVP PRN ×2 (06:42)
[2020-01-28] MEDS ORDERED: Mineral Oil ENEMA PR PRN (06:58)
[2020-01-28] MEDS ORDERED: Nitroglycerin 0.4 MG TAB (25 Tab Bottle) SL PRN (06:58)
[2020-01-28] MEDS ORDERED: Insulin Regular 300 UNITS/3 ML VIAL SC PRN (07:12)
--- NOTE | 2020-01-28 07:20 | PRG ---
DATE OF SERVICE: The patient's blood pressure has been in the 140s with a heart rate of about 90 on dobutamine 2.5 mg/hour. Chest x-ray shows small left effusion, some atelectasis on the right. LABORATORY VALUES: Hemoglobin is stable at 10.1, creatinine stable at around 2.1 with a BUN of 26. Her sugar was somewhat low this morning at 66. She has no complaints and states her nausea has improved. Her chest tubes were removed. Her lungs are clear and the chest incision is clean and dry. Plan at this time will be to transfer to the floor, probably continue her dobutamine for 1 additional day and then leave her congestive heart failure medicines to Cardiology. Job ID: [id number]
--- NOTE | 2020-01-28 07:48 | RAD ---
Portable frontal chest radiograph: 01/28/2020 COMPARISON: 01/27/2020 HISTORY: Status post open heart surgery FINDINGS: Stable increased density noted in the right lung base suggesting right middle lobe volume l oss with possible small right pleural effusion. Partial consolidation of the left lower lobe noted medially with small probable left pleural effusion. Stable drainage catheters overlie the mediastinum and upper left hemithorax. Stable midline sternotomy wires and right-sided vascular catheter. Stable drainage catheter overlies the right lung base. Pression: No significant interval change.
[2020-01-28] MEDS ORDERED: Potassium Chloride 10 MEQ TAB PO SCH (08:00)
[2020-01-28] MEDS: glyBURIDE 2.5 MG TAB PO SCH (08:22)
[2020-01-28] MEDS: Famotidine 20 MG TAB PO SCH (08:31)
[2020-01-28] MEDS: Aspirin Chewable 81 MG TAB PO SCH (08:31)
[2020-01-28] MEDS: Sodium Bicarbonate Tab 325 MG TAB PO SCH ×3 (08:31→21:01)
[2020-01-28] MEDS: Furosemide 40 MG TAB PO SCH (08:31)
--- NOTE | 2020-01-28 09:05 | EKG ---
Test Reason : Blood Pressure : / mmHG Vent. Rate : 092 BPM Atrial Rate : 092 BPM P-R Int : 138 ms QRS Dur : 080 ms QT Int : 358 ms P-R-T Axes : 057 008 214 degrees QTc Int : 442 ms Normal sinus rhythm Inferior-posterior infarct (cited on or before 18-JAN-2020) Abnormal ECG When compared with ECG of 18-JAN-2020 18:53, Nonspecific T wave abnormality, worse in Inferior leads Confirmed by DR. Jodi MADRID ([id number]) on 01/28/2020 9:04:45 AM Referred By: CHAIM REYNOLDS Confirmed By:DR. Jodi MADRID
--- NOTE | 2020-01-28 09:07 | PRG ---
DATE OF SERVICE: 01/28/2020 SUBJECTIVE: Ms. Parra is a 64-year-old female, who was followed up by the Renal Service for her chronic renal failure/acute kidney injury. She was also admitted for pneumonia. During the initial workup, she had significantly elevated troponin I and underwent a cardiac cath, which showed 3-vessel disease. She has undergone a CABG. She is doing well. Renal function remains stable. OBJECTIVE: VITAL SIGNS: Blood pressure is 132/76, heart rate is 93, O2 saturation 100%, and respiratory rate 24. GENERAL: Awake, sitting comfortable, not in distress. SKIN: Adequate turgor. HEENT: She has pinkish conjunctivae. Anicteric sclerae. No neck mass. No carotid bruits. No JVD. CHEST: No deformities. LUNGS: Decreased breath sounds. HEART: Normal sinus rhythm. No murmurs, gallops, or rubs. ABDOMEN: Globular, soft, and nontender. No masses. EXTREMITIES: No edema. No deformities. MEDICATIONS: On January 28, 2020, was reviewed. LABORATORY STUDIES: Laboratories of January 28, 2020; white count 15.9 and hemoglobin 10.1. Sodium 136, potassium 3.3, chloride 104, carbon dioxide 22, BUN 26, creatinine 2.12, calcium 7.4, and GFR 23 mL/minute. ASSESSMENT: 1. Chronic renal failure-most likely from the underlying diabetic nephropathy. Continue supportive care. No indication for any dialytic intervention. Creatinine is fluctuated in the past due to a component of prerenal azotemia. 2. Coronary artery disease-status post CABG, doing well. The patient to be transferred to telemetry today. 3. Status post pneumonia, Pulmonary following, resolved. Job ID: [id number]
--- NOTE | 2020-01-28 09:29 | PRG ---
DATE OF SERVICE: 01/28/2020 SUBJECTIVE: Irina Parra is status post CABG, status post pneumonia, doing better. OBJECTIVE: VITAL SIGNS: Her sats are 100% on room air, temperature 97, pulse 93, and blood pressure 132/76. GENERAL: Denies any pain or discomfort. CHEST: No wheezing or crackles. CARDIAC: Normal S1 and S2. No gallops or masses. LABORATORY DATA: Creatinine is 2.12. White count 15,000. X-ray still shows small pleural effusion. IMPRESSION: Status post coronary artery bypass grafting, cardiomyopathy, previous pneumonia, mild azotemia. PLAN: The patient is being transferred out of the ICU. Continue aggressive PT, supportive care. Job ID: [id number]
--- NOTE | 2020-01-28 14:22 | PDOC.HOSPP ---
- Subjective Encounter Date: 01/28/20 Encounter Time: 14:20 Subjective: pt up walking - Objective Vital Signs & Weight: Vital Signs (12 hours) Temp Pulse Pulse Pulse Resp BP BP 01/28/20 14:14 98 20 01/28/20 11:43 98.6 F 95 16 01/28/20 09:38 99 F 96 18 01/28/20 08:47 106 H 100 146/66 H 145/76 H 01/28/20 07:56 93 24 H 01/28/20 07:00 98.9 F 01/28/20 04:00 98.2 F BP BP Pulse Ox Pulse Ox Pulse Ox 01/28/20 14:14 100 01/28/20 11:43 141/67 H 93 L 01/28/20 09:38 151/70 H 98 01/28/20 08:47 98 95 01/28/20 07:56 100 01/28/20 07:00 01/28/20 04:00 Weight Admit Weight 129 lb 13.636 oz Weight 134 lb 0.657 oz Most Recent Monitor Data Heart Rate from ECG 105 NIBP 146/66 NIBP BP-Mean 92 Respiration from ECG 24 SpO2 97 I&O: 01/27/20 01/28/20 01/29/20 06:59 06:59 06:59 Intake Total 3184.1 1609.2 240 Output Total 1875 985 100 Balance 1309.1 624.2 140 Result Diagrams: 01/28/20 03:10 01/29/20 03:53 Additional Labs: Accuchecks 01/28/20 01/28/20 01/27/20 11:24 06:12 21:06 POC Glucose 124 H 96 92 01/27/20 16:22 POC Glucose 85 Hospitalist ROS - Review of Systems Cardiovascular: denies: chest pain, palpitations, orthopnea, paroxysmal noc. dyspnea, edema, light headedness, other Gastrointestinal: denies: nausea, vomiting, abdominal pain, diarrhea, constipation, melena, hematochezia, other Genitourinary: denies: dysuria, frequency, incontinence, hematuria, retention, other - Medication Medications: Active Medications Generic Name Dose Route Start Last Admin Trade Name Freq PRN Reason Stop Dose Admin Hydrocodone Bitart/Acetaminophen 1 tab 01/26/20 11:38 01/28/20 06:42 Keo 5/325 PO 1 tab Q4H PRN Administration Moderate Pain (4-6) Hydrocodone Bitart/Acetaminophen 2 tab 01/26/20 11:38 01/28/20 00:00 Keo 5/325 PO 2 tab Q4H PRN Administration Severe Pain (7-10) Albuterol/Ipratropium 3 ml 01/26/20 13:00 01/28/20 14:14 Duoneb NEB 3 ml [id number] ALEJANDRA Administration Aspirin 81 mg 01/27/20 09:00 01/28/20 08:31 Aspirin Chewable PO 81 mg DAILY ALEJANDRA Administration Atorvastatin Calcium 40 mg 01/27/20 21:00 01/27/20 20:43 Lipitor PO 40 mg HS ALEJANDRA Administration Famotidine 20 mg 01/27/20 09:00 01/28/20 08:31 Pepcid PO 20 mg DAILY ALEJANDRA Administration Furosemide 40 mg 01/28/20 09:00 01/28/20 08:31 Lasix PO 40 mg DAILY ALEJANDRA Administration Glyburide 2.5 mg 01/28/20 08:00 01/28/20 08:22 Micronase PO Not Given QAM- ALEJANDRA Ondansetron HCl 4 mg 01/26/20 11:38 01/28/20 06:42 Zofran IVP 4 mg Q6H PRN Administration Nausea/Vomiting Potassium Chloride 10 meq 01/28/20 08:00 01/28/20 08:31 Klor-Con 10 PO 10 meq QAM-WM ALEJANDRA Administration Sodium Bicarbonate 650 mg 01/27/20 09:00 01/28/20 08:31 Bicarbonate, Sodium PO 650 mg TID ALEJANDRA Administration - Exam Neck: negative: supple, symmetric, no JVD, no thyromegaly, no lymphadenopathy, no carotid bruit, JVD Heart: negative: RRR, no murmur, no gallops, no rubs, normal peripheral pulses, irregular, diminshed peripheral pulses, murmur present, II/IV, III/IV Respiratory: negative: CTAB, no wheezes, no rales, no ronchi, normal chest expansion, no tachypnea, normal percussion, rales, rhonchi, tachypneic, wheezes Hosp A/P (1) Acute respiratory failure with hypoxemia Code(s): J96.01 - ACUTE RESPIRATORY FAILURE WITH HYPOXIA Status: Acute (2) NSTEMI (non-ST elevated myocardial infarction) Code(s): I21.4 - NON-ST ELEVATION (NSTEMI) MYOCARDIAL INFARCTION Status: Acute (3) Pneumonia Code(s): J18.9 - PNEUMONIA, UNSPECIFIED ORGANISM Status: Acute (4) Chronic kidney disease, stage 4 (severe) Code(s): N18.4 - CHRONIC KIDNEY DISEASE, STAGE 4 (SEVERE) Status: Chronic (5) Diabetes mellitus type 2 in nonobese Code(s): E11.9 - TYPE 2 DIABETES MELLITUS WITHOUT COMPLICATIONS Status: Chronic (6) Hypertension Code(s): I10 - ESSENTIAL (PRIMARY) HYPERTENSION Status: Chronic - Plan Patient is a 64-year-old female with a history of hypertension diabetes and CKD who initially presented to the hospital complains of shortness of breath. Patient was initially put on BiPAP and was found to be hypoxic with an elevated troponin. Patient had a COVID screen which was negative. She was noted to have some ST segment depression and cardiology was consulted. She underwent a cardiac cath on 01/17 which indicated severe multivessel disease recommended bypass. Patient continued to have significant shortness of breath at this time pulmonary was consulted. Patient underwent intubation which appears to be on . Patient was extubated successfully on 01/20. Patient has chronic kidney disease for which nephrology has been consulted. She has been seen by CV surgery and will undergo a bypass probably on Sunday. 01/23 pt to undergo surgery on Sunday. will titrate oxygen down. will hold lisinopril for now. 01/24 pt's creatinine trends upwards. will continue to monitor. surgery on Sunday. 01/25 CABG she is in icu will continue to monitor. will replace electrolytes. 01/26 pt feels nauseated. will monitor her. she still has chest tubes. creatinine is stable. blood sugars stable. 01/27 pt up in bed no complains. possible discharge when ok with cv surgery.
--- NOTE | 2020-01-28 15:17 | EKG ---
Test Reason : CP-SOB Blood Pressure : / mmHG Vent. Rate : 105 BPM Atrial Rate : 105 BPM P-R Int : 150 ms QRS Dur : 098 ms QT Int : 358 ms P-R-T Axes : 067 054 -47 degrees QTc Int : 473 ms Sinus tachycardia Possible Left atrial enlargement Possible Inferior infarct , age undetermined Abnormal ECG Confirmed by ALTAF IRBY DO ([id number]), makeup editor KATHY GANNON ([id number]) on 01/28/2020 3:16:25 PM Referred By: Confirmed By:ALTAF IRBY DO
--- NOTE | 2020-01-28 19:01 | PRG ---
DATE OF SERVICE: 01/28/2020 SUBJECTIVE: Ms. Parra is doing very well. She states she feels great. No current complaints. No chest pain or pressure noted. No lightheadedness or dizziness. OBJECTIVE: VITAL SIGNS: Blood pressure 126/62, pulse 84, temperature 97.7. LUNGS: Clear to auscultation. HEART: Regular rate and rhythm. ABDOMEN: Soft, nontender, nondistended. EXTREMITIES: No edema. PERTINENT LABORATORY DATA: Hemoglobin 10.1. Creatinine 2.12. IMPRESSION: 1. Severe coronary artery disease. 2. Cardiomyopathy with left ventricular ejection fraction of 30% to 35%. 3. Renal insufficiency. RECOMMENDATIONS: Recommend repeating her echo to reassess LVEF. If LVEF is less than 35%, we would recommend a Zoll LifeVest. Otherwise, continue beta-amauri therapy, aspirin, and statin therapy. Job ID: [id number]
[2020-01-28] MEDS: Atorvastatin Calcium 40 MG TAB PO SCH (21:01)
[2020-01-29] MEDS: HYDROcodone/Acetaminophen 5/325 mg Tablet PO PRN ×2 (04:39→21:14)
[2020-01-29 04:40] LABS: Anion Gap 11 mmol/L (10-20); BUN (Urea Nitrogen) 30 mg/dL (9.8-20.1); Calc. Creatinine Clearance 22 mL/min (70-130); Calcium 7.8 mg/dL (7.8-10.44); Carbon Dioxide 27 mmol/L (23-31); Chloride 104 mmol/L (98-107); Estimated GFR-MDRD 20; Glucose 103 mg/dL (80-115); Sodium 137 mmol/L (136-145)
--- NOTE | 2020-01-29 07:41 | PRG ---
DATE OF SERVICE: 01/29/2020 SUBJECTIVE: She is now postoperative day #3, following coronary artery bypass grafting. Her blood pressure is running 160 to 170 with a heart rate in the mid 80s, on no antihypertensive medications at the present time. Her weight is at 134 pounds, which is still about 7 pounds over her preoperative weight. She had some bad dreams and woke up with a headache this morning but otherwise progressed well yesterday, walking with physical therapy on 2 occasions and was able to get out of the bed on her own. Her laboratory values, this morning, her creatinine is 2.4, which is in the general range of her baseline renal function with a BUN of 30. PLAN: Today is to begin low-dose beta amauri and leave her at her half dose of glyburide as this seems to be controlling her sugars fairly well. Hope to consider discharge in the next day or two if she continues to improve. Job ID: [id number]
--- NOTE | 2020-01-29 08:52 | PRG ---
DATE OF SERVICE: 01/29/2020 SUBJECTIVE: Ms. Parra is a 64-year-old female, followed up by the Renal Service for her chronic renal failure. She recently underwent a CABG. She is currently doing well. No new complaints today. No chest pain or shortness of breath. OBJECTIVE: VITAL SIGNS: Blood pressure is noted at 151/77, heart rate 85, respiratory rate 16, temperature 99.1, O2 saturation 94%. GENERAL: The patient is awake, alert, comfortable, not in overt distress. SKIN: Adequate turgor. HEENT: She has pinkish conjunctivae. Anicteric sclerae. No neck mass. No carotid bruits. No JVD. CHEST: No deformities. LUNGS: Clear breath sounds. No wheezing. No crackles. HEART: Normal sinus rhythm. No murmurs, no gallops, no rubs. ABDOMEN: Globular, soft, nontender. EXTREMITIES: No edema. MEDICATIONS: Medications of January 29, 2020, were reviewed. LABORATORY STUDIES: Laboratories of January 28, 2020; white count 15.9, hemoglobin 10.1. On January 29, 2020; sodium 137, potassium 5, chloride 104, carbon dioxide 24, BUN 30, creatinine 2.42, glucose 103, calcium 7.8. ASSESSMENT AND PLAN: 1. Coronary artery disease/status post CABG doing well. The patient tolerated the said procedure. Surgery is following. Clinically asymptomatic. 2. Chronic renal failure - secondary to an underlying diabetic nephropathy. Continue supportive care. No indication for any dialytic intervention. Recheck CBC, basic metabolic in a.m. Job ID: [id number]
[2020-01-29] MEDS ORDERED: Metoprolol Tartrate 25 MG TAB PO SCH (09:00)
[2020-01-29] MEDS: Famotidine 20 MG TAB PO SCH (09:44)
[2020-01-29] MEDS: Sodium Bicarbonate Tab 325 MG TAB PO SCH ×3 (09:45→21:13)
[2020-01-29] MEDS: glyBURIDE 2.5 MG TAB PO SCH (09:46)
[2020-01-29] MEDS: Aspirin Chewable 81 MG TAB PO SCH (09:46)
[2020-01-29] MEDS: Furosemide 40 MG TAB PO SCH (09:46)
[2020-01-29] MEDS ORDERED: traZODone HCl 50 MG TAB PO PRN (10:03)
--- NOTE | 2020-01-29 10:13 | PRG ---
DATE OF SERVICE: 01/29/2020 SUBJECTIVE: Irina Parra is a 64-year-old female, who walked 100 feet yesterday without any problems. OBJECTIVE: VITAL SIGNS: Temperature 99, pulse , saturations 95% on room air, blood pressure 151/77. CHEST: No wheezing. No crackles. CARDIAC: Normal S1, S2. No gallops. ABDOMEN: No masses. ASSESSMENT AND PLAN: Status post coronary artery bypass grafting, mild azotemia, creatinine 2.4, previous pneumonia. Pulmonary goetz, she is stable. Disposition as per primary care physician. Pulmonary/Critical Care will follow at a distance. Please call if needed. Job ID: [id number]
[2020-01-29] MEDS ORDERED: Carvedilol 6.25 MG TAB PO SCH (10:15)
--- NOTE | 2020-01-29 11:46 | PDOC.HOSPP ---
- Subjective Encounter Date: 01/29/20 Encounter Time: 09:45 Subjective: pt up ambulating - Objective Vital Signs & Weight: Vital Signs (12 hours) Temp Pulse Resp BP BP BP Pulse Ox 01/29/20 11:23 127/70 01/29/20 11:20 99.2 F 82 14 127/70 100 01/29/20 07:35 99.1 F 85 16 151/77 H 94 L 01/29/20 07:14 87 16 93 L 01/29/20 04:34 98.6 F 86 16 173/90 H 94 L 01/29/20 00:20 81 20 99 Weight Admit Weight 129 lb 13.636 oz Weight 130 lb 14.4 oz Most Recent Monitor Data Heart Rate from ECG 105 NIBP 146/66 NIBP BP-Mean 92 Respiration from ECG 24 SpO2 97 I&O: 01/28/20 01/29/20 01/30/20 06:59 06:59 06:59 Intake Total 1609.2 340 Output Total 985 1950 Balance 624.2 -1610 Result Diagrams: 01/28/20 03:10 01/29/20 03:53 Additional Labs: Accuchecks 01/29/20 01/28/20 01/28/20 05:46 20:24 16:54 POC Glucose 121 H 139 H 134 H Hospitalist ROS - Review of Systems Cardiovascular: denies: chest pain, palpitations, orthopnea, paroxysmal noc. dyspnea, edema, light headedness, other Genitourinary: denies: dysuria, frequency, incontinence, hematuria, retention, other - Medication Medications: Active Medications Generic Name Dose Route Start Last Admin Trade Name Freq PRN Reason Stop Dose Admin Hydrocodone Bitart/Acetaminophen 1 tab 01/26/20 11:38 01/28/20 06:42 Ariel 5/325 PO 1 tab Q4H PRN Administration Moderate Pain (4-6) Hydrocodone Bitart/Acetaminophen 2 tab 01/26/20 11:38 01/29/20 04:39 Ariel 5/325 PO 2 tab Q4H PRN Administration Severe Pain (7-10) Albuterol/Ipratropium 3 ml 01/26/20 13:00 01/29/20 07:14 Duoneb NEB 3 ml [id number] ALEJANDRA Administration Aspirin 81 mg 01/27/20 09:00 01/29/20 09:46 Aspirin Chewable PO 81 mg DAILY ALEJANDRA Administration Atorvastatin Calcium 40 mg 01/27/20 21:00 01/28/20 21:01 Lipitor PO 40 mg HS ALEJANDRA Administration Carvedilol 12.5 mg 01/29/20 10:15 01/29/20 11:23 Coreg PO 01/29/20 12:15 12.5 mg NOW ALEJANDRA Administration Famotidine 20 mg 01/27/20 09:00 01/29/20 09:44 Pepcid PO 20 mg DAILY ALEJANDRA Administration Furosemide 40 mg 01/28/20 09:00 01/29/20 09:46 Lasix PO 40 mg DAILY ALEJANDRA Administration Glyburide 2.5 mg 01/28/20 08:00 01/29/20 09:46 Micronase PO 2.5 mg QAM-WM ALEJANDRA Administration Metoprolol Tartrate 12.5 mg 01/29/20 09:00 01/29/20 09:47 Lopressor PO 12.5 mg BID ALEJANDRA Administration Ondansetron HCl 4 mg 01/26/20 11:38 01/28/20 06:42 Zofran IVP 4 mg Q6H PRN Administration Nausea/Vomiting Sodium Bicarbonate 650 mg 01/27/20 09:00 01/29/20 09:45 Bicarbonate, Sodium PO 650 mg TID ALEJANDRA Administration - Exam Neck: negative: supple, symmetric, no JVD, no thyromegaly, no lymphadenopathy, no carotid bruit, JVD Heart: negative: RRR, no murmur, no gallops, no rubs, normal peripheral pulses, irregular, diminshed peripheral pulses, murmur present, II/IV, III/IV Respiratory: negative: CTAB, no wheezes, no rales, no ronchi, normal chest expansion, no tachypnea, normal percussion, rales, rhonchi, tachypneic, wheezes Gastrointestinal: negative: soft, non-tender, non-distended, normal bowel sounds , no palpable masses, no hepatomegaly, no splenomegaly, no bruit, no guarding, no rigidity, tender to palpation, distended, diminished bowl sounds, voluntary guarding Hosp A/P (1) Acute respiratory failure with hypoxemia Code(s): J96.01 - ACUTE RESPIRATORY FAILURE WITH HYPOXIA Status: Acute (2) NSTEMI (non-ST elevated myocardial infarction) Code(s): I21.4 - NON-ST ELEVATION (NSTEMI) MYOCARDIAL INFARCTION Status: Acute (3) Pneumonia Code(s): J18.9 - PNEUMONIA, UNSPECIFIED ORGANISM Status: Acute (4) Chronic kidney disease, stage 4 (severe) Code(s): N18.4 - CHRONIC KIDNEY DISEASE, STAGE 4 (SEVERE) Status: Chronic (5) Diabetes mellitus type 2 in nonobese Code(s): E11.9 - TYPE 2 DIABETES MELLITUS WITHOUT COMPLICATIONS Status: Chronic (6) Hypertension Code(s): I10 - ESSENTIAL (PRIMARY) HYPERTENSION Status: Chronic - Plan Patient is a 64-year-old female with a history of hypertension diabetes and CKD who initially presented to the hospital complains of shortness of breath. Patient was initially put on BiPAP and was found to be hypoxic with an elevated troponin. Patient had a COVID screen which was negative. She was noted to have some ST segment depression and cardiology was consulted. She underwent a cardiac cath on 01/17 which indicated severe multivessel disease recommended bypass. Patient continued to have significant shortness of breath at this time pulmonary was consulted. Patient underwent intubation which appears to be on . Patient was extubated successfully on 01/20. Patient has chronic kidney disease for which nephrology has been consulted. She has been seen by CV surgery and will undergo a bypass probably on Sunday. 01/23 pt to undergo surgery on Sunday. will titrate oxygen down. will hold lisinopril for now. 01/24 pt's creatinine trends upwards. will continue to monitor. surgery on Sunday. 01/25 CABG she is in icu will continue to monitor. will replace electrolytes. 01/26 pt feels nauseated. will monitor her. she still has chest tubes. creatinine is stable. blood sugars stable. 01/27 pt up in bed no complains. possible discharge when ok with cv surgery. 01/28 will add coreg due to her low bp. she is on lasix. Her bp is not controlled. will remove perera. Pt has been ambulating well.
[2020-01-29] MEDS ORDERED: hydrALAZINE 25 MG TAB PO SCH (16:00)
[2020-01-29] MEDS: Carvedilol 6.25 MG TAB PO SCH (16:53)
--- NOTE | 2020-01-29 17:38 | PRG ---
DATE OF SERVICE: 01/29/2020 SUBJECTIVE: Ms. Parra is doing very well. She states she feels 100% better than she did prior to hospitalization. She states she is able to breathe much better than she did several weeks ago. OBJECTIVE: VITAL SIGNS: Blood pressure 127/70, pulse 82, and temperature 99.2. LUNGS: Clear to auscultation. HEART: Regular rate and rhythm. ABDOMEN: Soft, nontender, and nondistended. EXTREMITIES: No edema. PERTINENT LABORATORY DATA: Hemoglobin 10.1 and platelet count 242. IMPRESSION: 1. Severe coronary artery disease. 2. Status post bypass surgery. 3. Severe cardiomyopathy. RECOMMENDATIONS: Ms. Parra's LVEF is less than 35%. Would recommend LifeVest. Discussed risks and benefits of proceeding with LifeVest. She is agreeable. Otherwise, we will continue with current secondary risk factor modification. Continue aspirin and atorvastatin in addition to metoprolol. Job ID: [id number]
[2020-01-29] MEDS: Atorvastatin Calcium 40 MG TAB PO SCH (21:13)
[2020-01-29] MEDS: hydrALAZINE 25 MG TAB PO SCH (21:13)
[2020-01-30 04:52] LABS: #Eosinphils 0.2 thou/uL (0.0-0.7); #Lymphocytes 1.4 thou/uL (1.20-3.40); #Monocytes 0.9 thou/uL (0.11-0.59); #Neutrophils 8.3 thou/uL (1.40-6.50); %Basophils 0.3 % (0.0-1.0); %Eosinophils 2.2 % (0.0-10.0); %Neutrophils 76.4 % (42.0-75.0); Hemoglobin 9.8 g/dL (12.0-16.0); Mean Corpuscular Volume 94.1 fL (78.0-98.0); Mean Platelet Volume 7.6 fL (7.4-10.4); Platelet Count 300 thou/uL (130-400); RBC Distribution Width 13.4 % (11.5-14.5); Red Blood Cell (RBC) Count 3.16 mill/uL (4.20-5.40); White Blood Cell (WBC) Count 10.9 thou/uL (4.8-10.8)
[2020-01-30 05:19] LABS: Anion Gap 11 mmol/L (10-20); BUN (Urea Nitrogen) 33 mg/dL (9.8-20.1); Calc. Creatinine Clearance 21 mL/min (70-130); Carbon Dioxide 28 mmol/L (23-31); Chloride 101 mmol/L (98-107); Estimated GFR-MDRD 20; Potassium 3.6 mmol/L (3.5-5.1); Sodium 136 mmol/L (136-145)
[2020-01-30 05:20] LABS: Calcium 7.6 mg/dL (7.8-10.44); Glucose 117 mg/dL (80-115)
[2020-01-30] MEDS: HYDROcodone/Acetaminophen 5/325 mg Tablet PO PRN (06:26)
--- NOTE | 2020-01-30 07:54 | PRG ---
DATE OF SERVICE: 01/30/2020 SUBJECTIVE: Ms. Parra is doing well. No current complaints. She feels great. She is awaiting LifeVest. OBJECTIVE: VITAL SIGNS: Blood pressure 147/70, pulse 70, temperature 98.5. LUNGS: Clear to auscultation. HEART: Regular rate and rhythm. ABDOMEN: Soft, nontender, nondistended. EXTREMITIES: No edema. IMPRESSION: 1. Severe coronary artery disease. 2. Status post bypass surgery. 3. Recent pneumonia. RECOMMENDATIONS: Ms. Parra is doing well. She is awaiting LifeVest. There has been some delay on the LifeVest due to an outage. The patient would like to go home. She understands there is a low risk of complication, but if she is not able to get a LifeVest today, she would like to go home and have it fitted while at home. Would be okay from my standpoint after discussing risks and benefits. Continue atorvastatin, carvedilol in addition to aspirin. Okay for discharge from my standpoint. Job ID: [id number]
--- NOTE | 2020-01-30 08:36 | PRG ---
DATE OF SERVICE: 01/30/2020 SUBJECTIVE: Ms. Parra is a 64-year-old female with chronic renal failure from diabetic nephropathy. She was initially admitted for acute respiratory failure from pneumonia. During the initial evaluation, she was also diagnosed to have NSTEMI. She underwent cardiac cath and subsequent CABG. Since CABG, she is doing well. We are following up for her chronic renal failure. This has remained stable. OBJECTIVE: VITAL SIGNS: Blood pressure 147/70, heart rate 78, respiratory rate 16, temperature 98.5, O2 saturation 96% on room air. GENERAL: The patient is awake, alert, comfortable, not in distress. SKIN: Adequate turgor. HEENT: Pinkish conjunctivae, anicteric sclerae. No neck mass. No carotid bruits. No JVD. CHEST: No deformities. LUNGS: Clear breath sounds. HEART: Normal sinus rhythm. No murmur. No gallops. No rubs. ABDOMEN: Globular, soft, nontender. No masses. EXTREMITIES: No edema. No deformities. MEDICATIONS: January 30, 2020, was reviewed. LABORATORY DATA: Laboratories of January 30, 2020. White count 10.9, hemoglobin 9.8. Sodium 136, potassium 3.6, chloride 101, carbon dioxide 28, BUN 33, creatinine 2.46, glucose 117, calcium 7.6. ASSESSMENT AND PLAN: 1. Chronic renal failure secondary to diabetic nephropathy, stable renal function. Continue current management. No indication for any dialytic intervention. 2. Coronary artery disease status post coronary artery bypass grafting, doing well. Surgery is following. 3. The patient is discharged over the weekend. She will [facility]. Number was given for her to call. Job ID: [id number]
[2020-01-30] MEDS: Furosemide 40 MG TAB PO SCH (09:36)
[2020-01-30] MEDS: Aspirin Chewable 81 MG TAB PO SCH (09:36)
[2020-01-30] MEDS: hydrALAZINE 25 MG TAB PO SCH (09:37)
[2020-01-30] MEDS: Famotidine 20 MG TAB PO SCH (09:38)
[2020-01-30] MEDS: Sodium Bicarbonate Tab 325 MG TAB PO SCH ×2 (09:38→15:38)
[2020-01-30] MEDS: Carvedilol 6.25 MG TAB PO SCH ×2 (09:39→15:39)
[2020-01-30] MEDS: glyBURIDE 2.5 MG TAB PO SCH (09:39)
[2020-01-30 14:08] VITALS: BMI 28.3
[2020-01-30 15:40] VITALS: BP 134/66
[2020-01-30 16:19] VITALS: TEMP 98.9
--- NOTE | 2020-01-31 02:03 | DIS ---
DATE OF ADMISSION: 01/18/2020 DATE OF DISCHARGE: 01/30/2020 DISCHARGE DIAGNOSES: As of the following; 1. Acute respiratory failure with hypoxemia. 2. Non-ST segment elevation myocardial infarction. 3. Open bypass. 4. Pneumonia. 5. Chronic kidney disease, stage 4. 6. Diabetes. 7. Hypertension. HOSPITAL COURSE: The patient is a 64-year-old female with a history of hypertension, diabetes, and CKD, who initially presented to the hospital with complaints of shortness of breath. The patient initially was put on BiPAP and was found to be hypoxic with elevated troponin. Her COVID screen was negative. She also had some ST-segment depressions and Cardiology was consulted. She underwent a cardiac cath on 01/17, which indicated severe multivessel disease, recommended a bypass. The patient underwent a bypass on 01/25. Prior to that, she was short of breath before the bypass. At this time, Pulmonary was consulted and actually the patient underwent intubation on 01/17 and was successfully extubated on 01/20. She also had nephrology following her for her chronic kidney disease. She underwent as I mentioned CABG on 01/25. She continued to improve. However, her echocardiogram indicated an EF of 25% to 30%. At this time, she had a LifeVest and then was discharged home. She will follow up with Cardiology, with Nephrology, and with CV Surgery. MEDICATIONS: Her home medications will be as of the following; 1. Trazodone 50 mg at bedtime. 2. Sertraline 100 mg daily. 3. Melatonin as needed. 4. Aspirin 81 mg daily. 5. Hydralazine 25 mg b.i.d. 6. Glyburide 2.5 mg q.a.m. 7. Sodium bicarb 650 b.i.d. for a week. 8. Lasix 40 mg daily. 9. Carvedilol 12.5 b.i.d. 10. Atorvastatin 40 mg at bedtime. PHYSICAL EXAMINATION: VITAL SIGNS: On discharge, temperature of 98.9, heart rate 77, respiratory rate 16, and blood pressure 134/66. GENERAL: She is awake, alert, and oriented x3. Does not appear in distress. CV: S1 and S2 present. No murmurs, rubs, or gallops. Mid sternum scar is intact. Due to given the patient's worsening creatinine, lisinopril was not restarted on this patient. She will follow up with Dr. Alfredo, her firebreak cutter. Her discharge creatinine was 2.46. She was educated on her sugar control and also her low salt control. Job ID: [id number]
--- NOTE | 2020-02-01 17:16 | EKG ---
Test Reason : POST CSBG Blood Pressure : / mmHG Vent. Rate : 076 BPM Atrial Rate : 076 BPM P-R Int : 150 ms QRS Dur : 082 ms QT Int : 454 ms P-R-T Axes : 064 -36 100 degrees QTc Int : 510 ms Normal sinus rhythm Left axis deviation Low voltage QRS Inferior infarct , age undetermined Prolonged QT Abnormal ECG Confirmed by JHOAN GOODEN ([id number]) on 02/01/2020 5:16:37 PM Referred By: HAMLET Confirmed By:JHOAN GOODEN
--- NOTE | 2020-02-01 19:46 | PQF ---
Dear : Florina Hooks Date: 02/01/20 Please exercise your independent, professional judgment in responding to the clarification form. Clinical indicators are provided on the bottom of this form for your review Can you please further clarify the type of patient MO? Please check appropriate box(es): AMI TYPE: [ ] Type 1 MO (NSTEMI) [ ] Type 2 MO (T2MI) secondary to please specify etiology: __ [ ] Other diagnosis please specify [x ] Unable to determine DEFER TO CARDIOLOGY Physician Signature: Date/Time: For continuity of documentation, please document condition throughout progress notes and discharge summary. Thank You. To be completed by CDI/Coding staff for physician review: Present Clinical Indicators - Signs / Symptoms / Labs Results and Location in Medical Record [ x ] She also said that the pain in her chest started at rest. It was non radiating and only associated with some SOB. H and P pg.1 [ x ] Elevated troponin, I suspect this is likely the result of an NSTEMI type 2 due to demand ischemia from the pneumonia H and P pg.3 [ x ] Troponin: 1.195H, 4.341H, 31.747H, 68.154H Laboratory 01/17 [ x ] EKG was felt to be abnormal with T-waves inferiorly and Q waves inferiorly as well Consult pg.2 Dr. Samson [ x ] ST -T wave changes suggesting ischemia, but cannot exclude inferior wall aneurysm Consult pg.2 Dr. Samson [ x ] CHF with BNP of [address] Samson [ x ] Her troponin is elevated and may be related to demand ischemia Consult pg.3 Dr. Samson [ x ] Non Q wave myocardial infarction Consult 01/18 Dr. Urbina pg.1 [ x ] Non ST segment elevation myocardial infraction DS pg.1 Risk Factors Results and Location in Medical Record [ x ] Non-st segment elevation myocardial infaction DS pg.1 [ x ] Pneumonia DS pg.1 [ x ] CKD 4 DS pg.1 [ x ] Hypertension DS pg.1 [ x ] 64 years old H and P pg.1 [ x ] DM DS pg.1 [ x ] Pneumonia DS pg.1 [ x ] Acute respiratory failure DS pg.1 Present Treatments Results and Location in Medical Record [ x ] Chest X ray 01/17 [ x ] ECG 01/17 [ x ] Cardiac catheterization 01/25 [ x ] CABG x 3 OP report 01/25 [ x ] Echocardiogram 01/28 [ x ] Continuous cardiac monitoring Cardiology Consult [ x ] Cardiac consult Dr. Samson [ x ] BIPAP H and P pg.1 [ x ] IV Fluids MAR [ x ] Morphine 4mg IV MAR [ x ] Nitroglycerin 50mg IV MAR [ x ] Furosemide 40mg IV MAR [ x ] Troponin Monitoring Laboratory CDS/Chief Of Party Signature: Tristian Monk Phone #: [phone] Date: 02/01/20 This is a permanent part of the Medical Record [facility]
--- NOTE | 2020-02-01 19:48 | PQF ---
Dear : Florina Hooks Date: 02/01/20 Please exercise your independent, professional judgment in responding to the clarification form. Clinical indicators are provided on the bottom of this form for your review Can you please further clarify the type and acuity of CHF? Please check appropriate box(es): HEART FAILURE: A. ACUITY [ ] Acute [ X ] Acute on Chronic [ ] Chronic B. TYPE: [ ] Systolic / HFrEF [ ] Diastolic / HFpEF [ X ] Combined Systolic / Diastolic [ ] Hypertensive Heart and Kidney disease [ ] Hypertensive Heart Disease [ ] Hypertensive Kidney Disease [ ] Other diagnosis please specify [ ] Unable to determine Physician Signature: Date/Time: For continuity of documentation, please document condition throughout progress notes and discharge summary. Thank You. To be completed by CDI/Coding staff for physician review: Present Clinical Indicators - Signs / Symptoms / Labs Results and Location in Medical Record [ x ] Ejection Fraction 25-30% Electrocardiogram 01/28 [ x ] CHF with BNP of 1030E/a flow reversal noted. Suggestive of diastolic dysfunction Electrocardiogram 01/28 [ x ] E/a flow reversal noted. Suggestive of diastolic dysfunction Electrocardiogram 01/28 [ x ] BNP: 1308.1H Laboratory 01/17 [ x ] Congestive heart failure OP report 01/25 [ x ] Chest Xray shows some cardiomegaly, left lung atelectasis changes, small left pleural effusion PN 01/26 Present Risk Factors Results and Location in Medical Record [ x ] Non-st segment elevation myocardial infarction DS pg.1 [ x ] Pneumonia DS pg.1 [ x ] CKD 4 DS pg.1 [ x ] Hypertension DS pg.1 [ x ] 64 years old H and P pg.1 [ x ] DM DS pg.1 [ x ] Pneumonia DS pg.1 [ x ] Acute respiratory failure DS pg.1 [ ] NSTEMI DS pg.1 Present Treatments Results and Location in Medical Record [ x ] Chest X ray 01/17 [ x ] ECG 01/17 [ x ] Cardiac catheterization 01/25 [ x ] CABG x 3 OP report 01/25 [ x ] Echocardiogram 01/28 [ x ] Continuous cardiac monitoring Cardiology Consult [ x ] Cardiac consult Dr. Samson [ x ] BIPAP H and P pg.1 [ x ] IV Fluids MAR [ x ] Morphine 4mg IV MAR [ x ] Nitroglycerin 50mg IV MAR [ x ] Furosemide 40mg IV MAR [ x ] Troponin Monitoring Laboratory CDS/Runway Model Signature: Tristian Monk Phone #: [phone] [phone] Date: 02/01/20 This is a permanent part of the Medical Record [facility]
--- NOTE | 2020-02-09 18:26 | PQF ---
Dear : Kirill Crane Date: 02/10/20 Please exercise your independent, professional judgment in responding to the clarification form. Clinical indicators are provided on the bottom of this form for your review Can you please further clarify the type of patient PR? Please check appropriate box(es): AMI TYPE: [ xx ] Type 1 Ml ([id number]) [ ] Type 2 PR (T2M1) secondary to please specify etiology: [ ] Other diagnosis please specify [ ] Unable to determine Physician Signature: Date/Time: For continuity of documentation, please document condition throughout progress notes and discharge summary. Thank You. To be completed by CDI/Coding staff for physician review. Present Clinical Indicators- Signs/ Symptoms/ Labs Results and Location in Medical Record [ x ] She also said that the pain in her chest started at rest. It was non radiating and only associated with some SOB. H and P pg.1 [ x ] Elevated troponin, I suspect this is likely the result of an NSTEMI type 2 due to demand ischemia from the pneumonia H and P pg.3 [ x ] Troponin: 1.195H, 4.341H, 31.747H, 68.154H Laboratory 01/17 [ x ] EKG was felt to be abnormal with T-waves inferiorly and Q waves inferiorly as well Consult pg.2 Dr. Crane [ x ] ST -T wave changes suggesting ischemia, but cannot exclude inferior wall aneurysm Consult pg.2 Dr. Crane [ x ] CHF with BNP of [address] Crane [ x ] Her troponin is elevated and may be related to demand ischemia Consult pg.3 [ x ] Non Q wave myocardial infarction Consult 01/18 Dr. Crane pg.1 [ x ] Non ST segment elevation myocardial infraction DS pg.1 Risk Factors Results and Location in Medical Record [ x ] Non-st segment elevation myocardial infarction DS pg.1 [ x ] Pneumonia DS pg.1 [ x ] CKD 4 DS pg.1 [ x ] Hypertension DS pg.1 [ x ] 64 years old H and P pg.1 [ x ] DM DS pg.1 [ x ] Pneumonia DS pg.1 [ x ] Acute respiratory failure DS pg.1 Present Treatments Results and Location in Medical Record [ x ] Chest X ray 8/16 I x I ECG 01/17 I x I Cardiac catheterization 01/25 I x I CABG x 3 OP report [id number] I x I Echocardiogram 01/28 I x I Continuous cardiac monitoring Cardiology Consult I x I Cardiac consult Dr. Crane I x I BIPAP H and P poi I x I IV Fluids MAR I x I Morphine 4mq IV MAR I x I Nitroglycerin 50mq IV MAR I x I Furosemide 40mg IV MAR I x I Troponin Monitoring Laboratory CDS/Director Of Exhibits Signature: Tristian Monk Phone # [phone] Date : 02/10/20 [facility]
== END 2020-01-30 15:42 | disposition home or self-care (01) | DRG 233 ==
LOC: ERS 08:17 → CCU 12:05 → 2NO 01-22 10:32 → CCU 01-26 06:58 → 2NO 01-28 09:38
PROVIDERS: ADMIT Internal Medicine; ATTEND Internal Medicine
PROC: 0BH17EZ Insertion of Endotracheal Airway into Trachea, Via Natural or Artificial Opening (ICD-10-PCS; principal; 2020-01-18)
PROC: 5A1945Z Respiratory Ventilation, 24-96 Consecutive Hours (ICD-10-PCS; 2020-01-18)
PROC: 4A023N7 Measurement of Cardiac Sampling and Pressure, Left Heart, Percutaneous Approach (ICD-10-PCS; 2020-01-23)
PROC: B2151ZZ Fluoroscopy of Left Heart using Low Osmolar Contrast (ICD-10-PCS; 2020-01-23)
PROC: B2111ZZ Fluoroscopy of Multiple Coronary Arteries using Low Osmolar Contrast (ICD-10-PCS; 2020-01-23)
PROC: 02100Z9 Bypass Coronary Artery, One Artery from Left Internal Mammary, Open Approach (ICD-10-PCS; 2020-01-26)
PROC: 021109W Bypass Coronary Artery, Two Arteries from Aorta with Autologous Venous Tissue, Open Approach (ICD-10-PCS; 2020-01-26)
PROC: 06BQ4ZZ Excision of Left Saphenous Vein, Percutaneous Endoscopic Approach (ICD-10-PCS; 2020-01-26)
PROC: 5A1221Z Performance of Cardiac Output, Continuous (ICD-10-PCS; 2020-01-26)
PROC: 30233N1 Transfusion of Nonautologous Red Blood Cells into Peripheral Vein, Percutaneous Approach (ICD-10-PCS; 2020-01-26)
DX: I21.4 Non-ST elevation (NSTEMI) myocardial infarction (principal); A41.9 Sepsis, unspecified organism; J96.01 Acute respiratory failure with hypoxia; J18.9 Pneumonia, unspecified organism; R65.21 Severe sepsis with septic shock; I50.43 Acute on chronic combined systolic (congestive) and diastolic (congestive) heart failure; N18.4 Chronic kidney disease, stage 4 (severe); E87.2 Acidosis; N17.9 Acute kidney failure, unspecified; I13.0 Hypertensive heart and chronic kidney disease with heart failure and stage 1 through stage 4 chronic kidney disease, or unspecified chronic kidney disease; J90 Pleural effusion, not elsewhere classified; J98.11 Atelectasis; I42.9 Cardiomyopathy, unspecified; Z20.828 Contact with and (suspected) exposure to other viral communicable diseases; E11.22 Type 2 diabetes mellitus with diabetic chronic kidney disease; D63.1 Anemia in chronic kidney disease; F12.90 Cannabis use, unspecified, uncomplicated; I25.10 Atherosclerotic heart disease of native coronary artery without angina pectoris; Z90.49 Acquired absence of other specified parts of digestive tract; Z91.19 Patient's noncompliance with other medical treatment and regimen; Z79.82 Long term (current) use of aspirin; Z79.84 Long term (current) use of oral hypoglycemic drugs; Z79.899 Other long term (current) drug therapy
CPT/HCPCS: 31500; 36415; 36416; 36430; 51702; 71045; 76770; 76942; 80048; 80053; 81001; 82010; 82550; 82553; 82570; 82728; 82805; 83036; 83540; 83550; 83605; 83690; 83880; 84156; 84484; 85007; 85025; 85027; 85347; 85379; 85610; 85730; 86850; 86900; 86901; 87040; 93005; 93010; 93306; 93458; 93798; 94003; 94150; 94640; 96361; 96365; 96366; 96367; 96375; 96376; 97139; C9113; J0132; J0360; J0456; J0690; J0692; J0696; J1100; J1250; J1265; J1642; J1644; J1650; J1815; J1940; J2060; J2250; J2270; J2370; J2405; J2440; J2550; J2704; J2720; J2765; J3010; J3370; J3475; J3480; J3490; J7050; J7070; J7611; J7620; P9016; P9045; Q9967; S0017; S0028; U0002

== ENCOUNTER 2020-12-01 15:07 | Inpatient (IN) | payer MEDICARE ==
[2020-12-01] MEDS ORDERED: Nitroglycerin 2% Ointment 1 INCH/1 GM Packet ONE (16:00)
[2020-12-01] MEDS ORDERED: Aspirin Chewable 81 MG TAB ONE ×2 (16:00→16:01)
[2020-12-01] MEDS ORDERED: Furosemide 20 MG/2 ML VIAL ONE (16:00)
[2020-12-01 16:11] LABS: #Basophils 0.1 thou/uL (0.0-0.2); #Eosinphils 0.2 thou/uL (0.0-0.7); #Lymphocytes 2.9 thou/uL (1.20-3.40); #Monocytes 0.4 thou/uL (0.11-0.59); %Basophils 0.9 % (0.0-1.0); %Eosinophils 1.7 % (0.0-10.0); %Lymphocytes 30.2 % (21.0-51.0); %Monocytes 4.6 % (0.0-10.0); %Neutrophils 62.7 % (42.0-75.0); Hemoglobin 9.9 g/dL (12.0-16.0); Mean Corpuscular HGB CONC 34.2 g/dL (32.0-36.0); Mean Corpuscular Hemoglobin 32.3 pg (27.0-31.0); Mean Corpuscular Volume 94.6 fL (78.0-98.0); Mean Platelet Volume 7.7 fL (7.4-10.4); Platelet Count 246 thou/uL (130-400); Red Blood Cell (RBC) Count 3.06 mill/uL (4.20-5.40); White Blood Cell (WBC) Count 9.6 thou/uL (4.8-10.8)
[2020-12-01 16:38] LABS: ALT (SGPT) 17 U/L (8-55); AST (SGOT) 19 U/L (5-34); Albumin 3.6 g/dL (3.4-4.8); Alkaline Phosphatase 77 U/L (40-110); Anion Gap 15 mmol/L (10-20); BUN (Urea Nitrogen) 41 mg/dL (9.8-20.1); Bilirubin, Total 0.4 mg/dL (0.2-1.2); Calc. Creatinine Clearance 0 mL/min (70-130); Calcium 8.6 mg/dL (7.8-10.44); Carbon Dioxide 18 mmol/L (23-31); Chloride 109 mmol/L (98-107); Globulin 2.9 g/dL (2.4-3.5); Glucose 112 mg/dL (80-115); Potassium 4.7 mmol/L (3.5-5.1); Protein, Total 6.5 g/dL (5.8-8.1); Sodium 137 mmol/L (136-145)
[2020-12-01 16:56] LABS: CKMB 2.4 ng/mL (0-6.6)
[2020-12-01] MEDS ORDERED: Ondansetron PF 4 MG/2 ML Vial IVP PRN (20:28)
[2020-12-01] MEDS ORDERED: Dextrose 50% Abboject 50 ML SYRINGE SLOW IVP PRN (20:34)
[2020-12-01] MEDS ORDERED: HumaLOG 300 UNITS/3 ML VIAL SC PRN (20:34)
[2020-12-01] MEDS ORDERED: Dextrose 5% in Water 1,000 ML IV PRN (20:34)
[2020-12-01] MEDS: Atorvastatin Calcium 40 MG TAB PO SCH (21:14)
[2020-12-01] MEDS ORDERED: Acetaminophen 325 MG TAB ONE (22:17)
[2020-12-01] MEDS: Acetaminophen 325 MG TAB PO PRN (22:22)
[2020-12-02] MEDS ORDERED: Acetaminophen 325 MG TAB ONE ×2 (04:32→11:58)
[2020-12-02] MEDS ORDERED: hydrALAZINE 20 MG/ML VIAL ONE (04:32)
[2020-12-02] MEDS: Acetaminophen 325 MG TAB PO PRN ×2 (04:34→12:04)
[2020-12-02] MEDS: hydrALAZINE 20 MG/ML VIAL SLOW IVP PRN ×2 (04:35→16:04)
[2020-12-02 04:44] LABS: #Basophils 0.1 thou/uL (0.0-0.2); #Eosinphils 0.1 thou/uL (0.0-0.7); #Lymphocytes 2.6 thou/uL (1.20-3.40); #Monocytes 0.4 thou/uL (0.11-0.59); #Neutrophils 4.6 thou/uL (1.40-6.50); %Basophils 0.7 % (0.0-1.0); %Eosinophils 1.7 % (0.0-10.0); %Lymphocytes 33.2 % (21.0-51.0); %Monocytes 5.6 % (0.0-10.0); %Neutrophils 58.8 % (42.0-75.0); Hemoglobin 9.4 g/dL (12.0-16.0); Mean Corpuscular HGB CONC 35.6 g/dL (32.0-36.0); Mean Corpuscular Hemoglobin 33.6 pg (27.0-31.0); Mean Corpuscular Volume 94.5 fL (78.0-98.0); Mean Platelet Volume 7.9 fL (7.4-10.4); Platelet Count 213 thou/uL (130-400); RBC Distribution Width 13.1 % (11.5-14.5); Red Blood Cell (RBC) Count 2.79 mill/uL (4.20-5.40); White Blood Cell (WBC) Count 7.8 thou/uL (4.8-10.8)
[2020-12-02 05:03] LABS: Anion Gap 16 mmol/L (10-20); BUN (Urea Nitrogen) 48 mg/dL (9.8-20.1); Calc. Creatinine Clearance 11 mL/min (70-130); Calcium 8.4 mg/dL (7.8-10.44); Carbon Dioxide 16 mmol/L (23-31); Chloride 110 mmol/L (98-107); Glucose 122 mg/dL (80-115); Sodium 138 mmol/L (136-145)
[2020-12-02 05:08] LABS: Troponin I 0.053 ng/mL (< 0.028)
[2020-12-02] MEDS ORDERED: Furosemide 20 MG/2 ML VIAL SLOW IVP SCH (06:00)
[2020-12-02] MEDS ORDERED: Furosemide 20 MG/2 ML VIAL ONE ×2 (06:34→13:45)
[2020-12-02 07:57] LABS: Troponin I 0.062 ng/mL (< 0.028)
[2020-12-02] MEDS ORDERED: hydrALAZINE 25 MG TAB ONE (08:07)
[2020-12-02] MEDS ORDERED: Enoxaparin Sodium 30 MG/0.3 ML SYRINGE ONE (08:07)
[2020-12-02] MEDS: Carvedilol 6.25 MG TAB PO SCH ×2 (08:22→17:33)
[2020-12-02] MEDS: Enoxaparin Sodium 30 MG/0.3 ML SYRINGE SC SCH (08:22)
[2020-12-02] MEDS: hydrALAZINE 25 MG TAB PO SCH ×2 (08:23→21:39)
[2020-12-02] MEDS: Furosemide 20 MG/2 ML VIAL SLOW IVP SCH (13:52)
[2020-12-02] MEDS: HumaLOG 300 UNITS/3 ML VIAL SC PRN (18:33)
[2020-12-02] MEDS: Atorvastatin Calcium 40 MG TAB PO SCH (21:39)
[2020-12-03] MEDS: Acetaminophen 325 MG TAB PO PRN (03:26)
[2020-12-03] MEDS: hydrALAZINE 20 MG/ML VIAL SLOW IVP PRN (03:26)
[2020-12-03 04:51] LABS: #Basophils 0.1 thou/uL (0.0-0.2); #Eosinphils 0.2 thou/uL (0.0-0.7); #Lymphocytes 2.3 thou/uL (1.20-3.40); #Monocytes 0.5 thou/uL (0.11-0.59); #Neutrophils 4.5 thou/uL (1.40-6.50); %Basophils 0.8 % (0.0-1.0); %Eosinophils 2.4 % (0.0-10.0); %Lymphocytes 31.1 % (21.0-51.0); %Monocytes 6.2 % (0.0-10.0); %Neutrophils 59.5 % (42.0-75.0); Hemoglobin 9.4 g/dL (12.0-16.0); Mean Corpuscular HGB CONC 35.1 g/dL (32.0-36.0); Mean Corpuscular Hemoglobin 33.2 pg (27.0-31.0); Mean Corpuscular Volume 94.5 fL (78.0-98.0); Platelet Count 216 thou/uL (130-400); RBC Distribution Width 13.2 % (11.5-14.5); Red Blood Cell (RBC) Count 2.82 mill/uL (4.20-5.40); White Blood Cell (WBC) Count 7.5 thou/uL (4.8-10.8)
[2020-12-03 05:11] LABS: Anion Gap 16 mmol/L (10-20); BUN (Urea Nitrogen) 47 mg/dL (9.8-20.1); Calc. Creatinine Clearance 10 mL/min (70-130); Calcium 8.4 mg/dL (7.8-10.44); Carbon Dioxide 19 mmol/L (23-31); Chloride 107 mmol/L (98-107); Glucose 126 mg/dL (80-115); Potassium 3.9 mmol/L (3.5-5.1); Sodium 138 mmol/L (136-145)
[2020-12-03] MEDS: Furosemide 20 MG/2 ML VIAL SLOW IVP SCH ×2 (05:41→14:57)
[2020-12-03] MEDS: Isosorbide Dinitrate 20 MG TAB PO SCH ×3 (08:14→19:59)
[2020-12-03] MEDS: hydrALAZINE 25 MG TAB PO SCH ×2 (08:14→19:59)
[2020-12-03] MEDS: Carvedilol 25 MG TAB PO SCH ×2 (08:15→16:25)
[2020-12-03] MEDS: Aspirin 81 mg Enteric Coated Tablet PO SCH (08:16)
[2020-12-03] MEDS: Enoxaparin Sodium 30 MG/0.3 ML SYRINGE SC SCH (08:16)
[2020-12-03 09:29] VITALS: BMI 20.3
[2020-12-03 13:05] LABS: HBSAB Concentration Less than 8.00 mIU/mL; HBSAg Index 0.21 S/CO (0-0.99); Hep B Core Total Ab Non-Reactive (NonReactive); Hep B Core Total Index 0.08 S/CO (0-0.79); Hep B Surf AB Non-Reactive (NonReactive); Hep B Surf Ag Non-Reactive S/CO (NonReactive); Hep C IgG Ab Non-Reactive (NonReactive); Hep C Index 0.05 S/CO (0-0.79)
[2020-12-03] MEDS: Heparin 5,000 UNITS/ML VIAL SC SCH ×2 (14:59→19:59)
[2020-12-03 15:03] LABS: Troponin I 0.134 ng/mL (< 0.028)
[2020-12-03] MEDS: Atorvastatin Calcium 40 MG TAB PO SCH (19:59)
[2020-12-04 04:47] LABS: #Basophils 0.1 thou/uL (0.0-0.2); #Eosinphils 0.1 thou/uL (0.0-0.7); #Monocytes 0.5 thou/uL (0.11-0.59); #Neutrophils 4.6 thou/uL (1.40-6.50); %Basophils 0.9 % (0.0-1.0); %Eosinophils 1.3 % (0.0-10.0); %Lymphocytes 27.9 % (21.0-51.0); %Monocytes 6.3 % (0.0-10.0); %Neutrophils 63.6 % (42.0-75.0); Hemoglobin 7.8 g/dL (12.0-16.0); Mean Corpuscular HGB CONC 33.5 g/dL (32.0-36.0); Mean Corpuscular Hemoglobin 31.9 pg (27.0-31.0); Mean Corpuscular Volume 95.1 fL (78.0-98.0); Mean Platelet Volume 7.9 fL (7.4-10.4); Platelet Count 189 thou/uL (130-400); RBC Distribution Width 13.1 % (11.5-14.5); Red Blood Cell (RBC) Count 2.44 mill/uL (4.20-5.40); White Blood Cell (WBC) Count 7.3 thou/uL (4.8-10.8)
[2020-12-04 05:08] LABS: Anion Gap 16 mmol/L (10-20); BUN (Urea Nitrogen) 48 mg/dL (9.8-20.1); Calc. Creatinine Clearance 10 mL/min (70-130); Carbon Dioxide 19 mmol/L (23-31); Chloride 106 mmol/L (98-107); Glucose 137 mg/dL (80-115); Potassium 3.9 mmol/L (3.5-5.1); Sodium 137 mmol/L (136-145)
[2020-12-04] MEDS: Furosemide 20 MG/2 ML VIAL SLOW IVP SCH ×2 (05:24→15:13)
[2020-12-04] MEDS: hydrALAZINE 25 MG TAB PO SCH (10:03)
[2020-12-04] MEDS: Isosorbide Dinitrate 20 MG TAB PO SCH ×2 (10:03→15:13)
[2020-12-04] MEDS: Aspirin 81 mg Enteric Coated Tablet PO SCH (10:03)
[2020-12-04] MEDS: Carvedilol 25 MG TAB PO SCH (10:03)
[2020-12-04] MEDS: Heparin 5,000 UNITS/ML VIAL SC SCH ×2 (10:04→15:13)
[2020-12-04] MEDS: HumaLOG 300 UNITS/3 ML VIAL SC PRN ×2 (11:10→15:33)
[2020-12-04] MEDS ORDERED: EPOETIN ALFA-EPBX (ESRD) 10,000 UNIT/ML VIAL SC SCH (11:15)
[2020-12-04 15:11] VITALS: BP 172/86; TEMP 98.6
[2020-12-04] MEDS ORDERED: Carvedilol 25 MG TAB PO SCH (17:00)
[2020-12-05] MEDS ORDERED: Ferrous Sulfate 325 MG TAB PO SCH (08:00)
[2020-12-07 15:14] LABS: IgA - Total IgA (Sendout) 249 mg/dL (87-352); Immunoglobulin - G (Sendout) 769 mg/dL (586-1602); Immunoglobulin - M (Sendout) 147 mg/dL (26-217)
== END 2020-12-04 15:38 | disposition left against medical advice (07) | DRG 291 ==
LOC: ERS 15:07 → ERHOLD 20:28 → 2NO 12-02 15:25
PROVIDERS: ADMIT Internal Medicine; ATTEND Internal Medicine
DX: I13.0 Hypertensive heart and chronic kidney disease with heart failure and stage 1 through stage 4 chronic kidney disease, or unspecified chronic kidney disease (principal); I50.43 Acute on chronic combined systolic (congestive) and diastolic (congestive) heart failure; N18.4 Chronic kidney disease, stage 4 (severe); N17.9 Acute kidney failure, unspecified; J44.9 Chronic obstructive pulmonary disease, unspecified; I25.10 Atherosclerotic heart disease of native coronary artery without angina pectoris; G89.29 Other chronic pain; E11.22 Type 2 diabetes mellitus with diabetic chronic kidney disease; R77.8 Other specified abnormalities of plasma proteins; R93.89 Abnormal findings on diagnostic imaging of other specified body structures; E11.21 Type 2 diabetes mellitus with diabetic nephropathy; F32.9 Major depressive disorder, single episode, unspecified; E78.5 Hyperlipidemia, unspecified; I25.5 Ischemic cardiomyopathy; F12.929 Cannabis use, unspecified with intoxication, unspecified; D63.1 Anemia in chronic kidney disease; M19.90 Unspecified osteoarthritis, unspecified site; I25.2 Old myocardial infarction; Z79.82 Long term (current) use of aspirin; Z79.899 Other long term (current) drug therapy; Z95.1 Presence of aortocoronary bypass graft; Z87.891 Personal history of nicotine dependence
CPT/HCPCS: 36415; 36416; 71045; 76770; 80048; 80053; 82553; 83880; 84484; 85025; 86334; 86335; 86704; 86706; 86803; 87340; 90471; 90732; 93005; 93306; 93798; 96374; G0009; J0360; J1644; J1650; J1815; J1940; Q5105

== ENCOUNTER 2021-02-24 14:35 | Outpatient (CLI) | payer MEDICARE | END 2021-02-24 14:36 | disposition home or self-care (01) | LOC: ULT 14:35 | PROVIDERS: ATTEND Internal Medicine Nephrology | DX: N18.6 End stage renal disease (principal) | CPT/HCPCS: 93970 ==

== ENCOUNTER 2021-02-28 13:06 | Outpatient (CLI) | payer MEDICARE | END 2021-02-28 13:07 | disposition home or self-care (01) | LOC: BICRAD 13:06 | PROVIDERS: ATTEND Internal Medicine Nephrology | DX: Z03.89 Encounter for observation for other suspected diseases and conditions ruled out (principal) | CPT/HCPCS: 71046 ==

== ENCOUNTER 2021-03-26 05:19 | Emergency (ER) | payer MEDICARE ==
[2021-03-26 06:15] LABS: #Basophils 0.1 thou/uL (0.0-0.2); #Eosinphils 0.2 thou/uL (0.0-0.7); #Lymphocytes 1.6 thou/uL (1.20-3.40); #Monocytes 0.4 thou/uL (0.11-0.59); #Neutrophils 7.4 thou/uL (1.40-6.50); %Basophils 0.5 % (0.0-1.0); %Eosinophils 2.1 % (0.0-10.0); %Lymphocytes 16.5 % (21.0-51.0); %Monocytes 3.7 % (0.0-10.0); %Neutrophils 77.2 % (42.0-75.0); Hemoglobin 7.5 g/dL (12.0-16.0); Mean Corpuscular HGB CONC 34.1 g/dL (32.0-36.0); Mean Corpuscular Volume 93.7 fL (78.0-98.0); Mean Platelet Volume 7.6 fL (7.4-10.4); Platelet Count 255 thou/uL (130-400); RBC Distribution Width 14.6 % (11.5-14.5); Red Blood Cell (RBC) Count 2.33 mill/uL (4.20-5.40); White Blood Cell (WBC) Count 9.6 thou/uL (4.8-10.8)
[2021-03-26 06:34] LABS: Anion Gap 17 mmol/L (10-20); BUN (Urea Nitrogen) 82 mg/dL (9.8-20.1); Calc. Creatinine Clearance 0 mL/min (70-130); Carbon Dioxide 18 mmol/L (23-31); Chloride 106 mmol/L (98-107); Potassium 4.3 mmol/L (3.5-5.1); Sodium 137 mmol/L (136-145)
[2021-03-26 06:35] LABS: ALT (SGPT) 19 U/L (8-55); AST (SGOT) 21 U/L (5-34); Albumin 3.7 g/dL (3.4-4.8); Alkaline Phosphatase 86 U/L (40-110); Bilirubin, Total 0.3 mg/dL (0.2-1.2); Calcium 8.2 mg/dL (7.8-10.44); Globulin 2.8 g/dL (2.4-3.5); Glucose 144 mg/dL (80-115); Protein, Total 6.5 g/dL (5.8-8.1)
[2021-03-26 06:55] LABS: CKMB 2.1 ng/mL (0-6.6)
[2021-03-26] MEDS ORDERED: predniSONE 20 MG TAB ONE (06:58)
== END 2021-03-26 07:02 | disposition home or self-care (01) ==
LOC: ERS 05:19
DX: J44.1 Chronic obstructive pulmonary disease with (acute) exacerbation (principal); R06.00 Dyspnea, unspecified; R94.31 Abnormal electrocardiogram [ECG] [EKG]; I13.0 Hypertensive heart and chronic kidney disease with heart failure and stage 1 through stage 4 chronic kidney disease, or unspecified chronic kidney disease; E11.22 Type 2 diabetes mellitus with diabetic chronic kidney disease; N18.9 Chronic kidney disease, unspecified; I50.9 Heart failure, unspecified; E11.319 Type 2 diabetes mellitus with unspecified diabetic retinopathy without macular edema; M19.90 Unspecified osteoarthritis, unspecified site; F17.200 Nicotine dependence, unspecified, uncomplicated; Z79.899 Other long term (current) drug therapy
CPT/HCPCS: 36415; 71045; 80053; 82553; 83880; 84484; 85025; 93005; J7512

== ENCOUNTER 2021-05-30 16:33 | Inpatient (IN) | payer MEDICARE ==
[~2021-05-30 16:33] MED LIST: Heparin 10,000 UNITS/ 10 ML VIAL ONE
[2021-05-30 17:08] LABS: #Basophils 0.1 thou/uL (0.0-0.2); #Lymphocytes 1.5 thou/uL (1.20-3.40); #Monocytes 0.4 thou/uL (0.11-0.59); #Neutrophils 7.7 thou/uL (1.40-6.50); %Basophils 0.6 % (0.0-1.0); %Eosinophils 0.3 % (0.0-10.0); %Lymphocytes 15.6 % (21.0-51.0); %Monocytes 3.9 % (0.0-10.0); %Neutrophils 79.5 % (42.0-75.0); Hemoglobin 6.2 g/dL (12.0-16.0); Mean Corpuscular HGB CONC 32.7 g/dL (32.0-36.0); Mean Corpuscular Volume 88.8 fL (78.0-98.0); Mean Platelet Volume 8.2 fL (7.4-10.4); Platelet Count 287 thou/uL (130-400); RBC Distribution Width 17.9 % (11.5-14.5); Red Blood Cell (RBC) Count 2.15 mill/uL (4.20-5.40); White Blood Cell (WBC) Count 9.7 thou/uL (4.8-10.8)
[2021-05-30 17:32] LABS: ALT (SGPT) 17 U/L (8-55); AST (SGOT) 23 U/L (5-34); Albumin 3.4 g/dL (3.4-4.8); Alkaline Phosphatase 73 U/L (40-110); Anion Gap 18 mmol/L (10-20); BUN (Urea Nitrogen) 106 mg/dL (9.8-20.1); Bilirubin, Total 0.3 mg/dL (0.2-1.2); Calc. Creatinine Clearance 0 mL/min (70-130); Calcium 7.9 mg/dL (7.8-10.44); Carbon Dioxide 19 mmol/L (23-31); Chloride 105 mmol/L (98-107); Globulin 3.2 g/dL (2.4-3.5); Glucose 124 mg/dL (80-115); Potassium 4.6 mmol/L (3.5-5.1); Protein, Total 6.6 g/dL (5.8-8.1); Sodium 137 mmol/L (136-145)
[2021-05-30 18:44] LABS: Actual Bicarbonate (HCO3v) 18 mEq/L (22-28); Analyzer IN Cardio ER; Base Excess -7.5 mEq/L (-2.0 to +3.0); Calcium, Ionized (venous) 0.97 mmol/L (1.16-1.32); Chloride (VBG) 106 mmol/L (98-106); Hemoglobin (Hb) 6.7 g/dL (11.7-16.1); Potassium (VBG) 4.67 mmol/L (3.70-5.30); Sodium 134.3 mmol/L (133-146); pH (venous) 7.32 (7.32-7.43)
[2021-05-30 18:46] LABS: Lipase 61 U/L (8-78); Magnesium 2.7 mg/dL (1.6-2.6)
[2021-05-30 19:09] LABS: CKMB 2.1 ng/mL (0-6.6)
[2021-05-30 19:47] LABS: Bacteria/HPF None Seen HPF (None Seen); Bilirubin Negative (Negative); Blood, Urine Trace (Negative); Clarity Clear (Clear); Glucose, Urine (Dipstick) 30 mg/dL (Negative); Ketone, Urine Negative (Negative); Leukocyte Negative Leu/uL (Negative); Nitrite Negative (Negative); Protein, Urine (Dipstick) 100 mg/dL (Neg-Trace); RBC/HPF 0-3 HPF (0-3); Specific Gravity, Urine 1.013 (1.002-1.036); Squamous Epithelial 0-3 HPF (0-3); Urobilinogen Normal mg/dL (Less than 2); WBC/HPF 0-3 HPF (0-3)
[2021-05-30] MEDS ORDERED: Furosemide 40 MG/4 ML VIAL ONE (19:55)
[2021-05-30 21:04] LABS: SARS-CoV-2 NAA Rapid Test Not Detected (NotDetected)
[2021-05-30 22:05] LABS: Phosphorus 7.7 mg/dL (2.3-4.7)
[2021-05-30 22:10] LABS: Troponin I 0.044 ng/mL (< 0.028)
[2021-05-31 01:11] LABS: Troponin I 0.041 ng/mL (< 0.028)
[2021-05-31] MEDS: Tuberculin PPD 0.1 ML VIAL I-DERMAL SCH ×2 (01:15→22:26)
[2021-05-31 02:03] LABS: HBSAB Concentration Less than 8.00 mIU/mL; Hep B Core Total Ab Non-Reactive (NonReactive); Hep B Core Total Index 0.04 S/CO (0-0.79); Hep B Surf AB Non-Reactive (NonReactive); Hep B Surf Ag Non-Reactive S/CO (NonReactive); Hep C IgG Ab Non-Reactive (NonReactive); Hep C Index 0.08 S/CO (0-0.79)
[2021-05-31] MEDS: Acetaminophen 325 MG TAB PO PRN ×2 (06:11→10:16)
[2021-05-31] MEDS: hydrALAZINE 20 MG/ML VIAL SLOW IVP PRN (06:13)
[2021-05-31] MEDS: Ondansetron PF 4 MG/2 ML Vial IVP PRN ×2 (06:16→12:23)
[2021-05-31] MEDS ORDERED: Dextrose 50% Abboject 50 ML SYRINGE SLOW IVP PRN (07:18)
[2021-05-31] MEDS ORDERED: Dextrose 5% in Water 1,000 ML IV PRN (07:18)
[2021-05-31] MEDS ORDERED: HumaLOG 300 UNITS/3 ML VIAL SC PRN ×2 (07:18)
[2021-05-31 07:59] LABS: #Basophils 0.1 thou/uL (0.0-0.2); #Lymphocytes 1.5 thou/uL (1.20-3.40); #Monocytes 0.5 thou/uL (0.11-0.59); #Neutrophils 7.1 thou/uL (1.40-6.50); %Basophils 0.5 % (0.0-1.0); %Eosinophils 0.3 % (0.0-10.0); %Lymphocytes 16.1 % (21.0-51.0); %Monocytes 5.6 % (0.0-10.0); %Neutrophils 77.4 % (42.0-75.0); Hemoglobin 7.4 g/dL (12.0-16.0); Mean Corpuscular HGB CONC 33.5 g/dL (32.0-36.0); Mean Corpuscular Hemoglobin 29.7 pg (27.0-31.0); Mean Corpuscular Volume 88.6 fL (78.0-98.0); Mean Platelet Volume 7.6 fL (7.4-10.4); Platelet Count 247 thou/uL (130-400); RBC Distribution Width 16.1 % (11.5-14.5); Red Blood Cell (RBC) Count 2.48 mill/uL (4.20-5.40); White Blood Cell (WBC) Count 9.2 thou/uL (4.8-10.8)
[2021-05-31 08:06] LABS: Anion Gap 17 mmol/L (10-20); BUN (Urea Nitrogen) 80 mg/dL (9.8-20.1); Calc. Creatinine Clearance 9 mL/min (70-130); Calcium 7.8 mg/dL (7.8-10.44); Carbon Dioxide 20 mmol/L (23-31); Chloride 104 mmol/L (98-107); Glucose 105 mg/dL (80-115); Potassium 3.4 mmol/L (3.5-5.1); Sodium 138 mmol/L (136-145)
[2021-05-31 08:07] LABS: Iron Binding Capacity, Total 360 mcg/dL (265-497)
[2021-05-31 08:08] LABS: Iron 17 ug/dL (50-170)
[2021-05-31] MEDS: Ferrous Sulfate 325 MG TAB PO SCH ×2 (08:23→17:20)
[2021-05-31] MEDS: EPOETIN ALFA-EPBX (ESRD) 4,000 UNIT/ML VIAL SC SCH (08:23)
[2021-05-31] MEDS: Carvedilol 6.25 MG TAB PO SCH ×2 (08:24→17:20)
[2021-05-31] MEDS: Calcitriol 0.25 MCG CAP PO SCH (09:51)
[2021-05-31] MEDS: Sevelamer Carbonate 800 MG TAB PO SCH ×2 (12:24→17:20)
[2021-05-31] MEDS ORDERED: traMADol HCl 50 MG TAB PO PRN (16:03)
[2021-05-31] MEDS: Acetaminophen/Codeine 30-300mg Tablet PO PRN ×2 (17:21→23:14)
[2021-05-31] MEDS: Atorvastatin Calcium 40 MG TAB PO SCH (20:31)
[2021-05-31] MEDS: hydrALAZINE 25 MG TAB PO SCH (20:31)
[2021-06-01] MEDS: Ondansetron PF 4 MG/2 ML Vial IVP PRN (04:03)
[2021-06-01 05:06] LABS: #Eosinphils 0.1 thou/uL (0.0-0.7); #Monocytes 0.6 thou/uL (0.11-0.59); #Neutrophils 5.8 thou/uL (1.40-6.50); %Basophils 0.4 % (0.0-1.0); %Eosinophils 0.7 % (0.0-10.0); %Lymphocytes 23.3 % (21.0-51.0); %Neutrophils 68.5 % (42.0-75.0); Hemoglobin 7.1 g/dL (12.0-16.0); Mean Corpuscular HGB CONC 33.9 g/dL (32.0-36.0); Mean Corpuscular Hemoglobin 30.3 pg (27.0-31.0); Mean Corpuscular Volume 89.2 fL (78.0-98.0); Mean Platelet Volume 7.5 fL (7.4-10.4); Platelet Count 252 thou/uL (130-400); RBC Distribution Width 16.1 % (11.5-14.5); Red Blood Cell (RBC) Count 2.34 mill/uL (4.20-5.40); White Blood Cell (WBC) Count 8.5 thou/uL (4.8-10.8)
[2021-06-01 05:35] LABS: Anion Gap 13 mmol/L (10-20); BUN (Urea Nitrogen) 38 mg/dL (9.8-20.1); Calc. Creatinine Clearance 14 mL/min (70-130); Calcium 7.8 mg/dL (7.8-10.44); Carbon Dioxide 27 mmol/L (23-31); Chloride 101 mmol/L (98-107); Glucose 90 mg/dL (80-115); Potassium 3.3 mmol/L (3.5-5.1); Sodium 138 mmol/L (136-145)
[2021-06-01] MEDS ORDERED: Heparin 10,000 UNITS/ 10 ML VIAL ONE ×2 (09:28→09:56)
[2021-06-01] MEDS ORDERED: ceFAZolin 2 GM/DEX 5% 100 ML BAG ONE (09:51)
[2021-06-01] MEDS ORDERED: Fentanyl 100 MCG/2 ML VIAL ONE (09:53)
[2021-06-01] MEDS ORDERED: Famotidine/PF 20 mg/2ml Vial ONE (09:53)
[2021-06-01] MEDS ORDERED: SUGAMMADEX SODIUM 200 MG/2 ML VIAL ONE (09:53)
[2021-06-01] MEDS ORDERED: Lidocaine 1% (PF) 30 ML VIAL ONE (09:56)
[2021-06-01] MEDS ORDERED: Heparin 5,000 UNITS/ML VIAL ONE (09:56)
[2021-06-01] MEDS ORDERED: Sodium Chloride 0.9% 20 ML ONE (09:56)
[2021-06-01] MEDS ORDERED: Bupivacaine 0.25% 10 ML VIAL ONE (09:56)
[2021-06-01] MEDS ORDERED: EPINEPHrine 1 MG/ML AMP ONE (09:56)
[2021-06-01] MEDS ORDERED: Lidocaine 2% PF 5 ML VIAL ONE (10:03)
[2021-06-01] MEDS ORDERED: Propofol 500 MG/50 ML VIAL ONE (10:07)
[2021-06-01] MEDS ORDERED: Bupivacaine HCl 0.5%/Epinephrine 1:200,000/PF 30 ml Vial ONE (10:16)
[2021-06-01] MEDS ORDERED: Ondansetron PF 4 MG/2 ML Vial ONE (10:16)
[2021-06-01] MEDS ORDERED: Lidocaine 1% PF 5 ML VIAL ONE (10:16)
[2021-06-01] MEDS ORDERED: Metoclopramide HCl 10 MG/2 ML VIAL ONE (10:16)
[2021-06-01] MEDS ORDERED: PROPOFOL 200 MG/20 ML VIAL ONE (10:16)
[2021-06-01] MEDS ORDERED: Protamine Sulfate 50 MG/5 ML VIAL ONE (11:53)
[2021-06-01] MEDS: Sevelamer Carbonate 800 MG TAB PO SCH ×3 (12:02→16:12)
[2021-06-01] MEDS ORDERED: Ondansetron HCl/PF 4 MG/2 ML Vial IVP PRN (12:33)
[2021-06-01] MEDS: Ferrous Sulfate 325 MG TAB PO SCH ×2 (13:46→15:55)
[2021-06-01] MEDS: Carvedilol 6.25 MG TAB PO SCH ×2 (13:46→16:12)
[2021-06-01] MEDS: Lidocaine 5% Patch TD SCH (13:47)
[2021-06-01] MEDS: Calcitriol 0.25 MCG CAP PO SCH (13:47)
[2021-06-01] MEDS: Acetaminophen/Codeine 30-300mg Tablet PO PRN ×2 (16:11→20:38)
[2021-06-01] MEDS: Atorvastatin Calcium 40 MG TAB PO SCH (20:39)
[2021-06-01] MEDS: Tuberculin PPD 0.1 ML VIAL I-DERMAL SCH (20:45)
[2021-06-01] MEDS: Transdermal Patch Removal TOP SCH (20:46)
[2021-06-01] MEDS: READ PPD TEST SITE PO SCH (20:47)
[2021-06-02] MEDS: Acetaminophen/Codeine 30-300mg Tablet PO PRN ×4 (01:06→21:08)
[2021-06-02] MEDS: hydrALAZINE 25 MG TAB PO SCH ×2 (01:07→21:08)
[2021-06-02] MEDS ORDERED: traMADol HCl 50 MG TAB PO SCH (04:45)
[2021-06-02 04:52] LABS: #Lymphocytes 1.4 thou/uL (1.20-3.40); #Monocytes 0.7 thou/uL (0.11-0.59); #Neutrophils 5.6 thou/uL (1.40-6.50); %Basophils 0.1 % (0.0-1.0); %Eosinophils 0.6 % (0.0-10.0); %Lymphocytes 18.1 % (21.0-51.0); %Monocytes 8.6 % (0.0-10.0); %Neutrophils 72.6 % (42.0-75.0); Hemoglobin 6.7 g/dL (12.0-16.0); Mean Corpuscular HGB CONC 33.1 g/dL (32.0-36.0); Mean Corpuscular Volume 90.6 fL (78.0-98.0); Mean Platelet Volume 7.2 fL (7.4-10.4); Platelet Count 195 thou/uL (130-400); RBC Distribution Width 15.7 % (11.5-14.5); Red Blood Cell (RBC) Count 2.22 mill/uL (4.20-5.40); White Blood Cell (WBC) Count 7.7 thou/uL (4.8-10.8)
[2021-06-02 05:06] LABS: Anion Gap 12 mmol/L (10-20); BUN (Urea Nitrogen) 18 mg/dL (9.8-20.1); Calc. Creatinine Clearance 17 mL/min (70-130); Calcium 7.7 mg/dL (7.8-10.44); Carbon Dioxide 29 mmol/L (23-31); Chloride 99 mmol/L (98-107); Glucose 106 mg/dL (80-115); Potassium 3.7 mmol/L (3.5-5.1); Sodium 136 mmol/L (136-145)
[2021-06-02] MEDS: Carvedilol 6.25 MG TAB PO SCH ×2 (09:06→16:39)
[2021-06-02] MEDS: Ferrous Sulfate 325 MG TAB PO SCH ×2 (09:06→16:40)
[2021-06-02] MEDS: Sevelamer Carbonate 800 MG TAB PO SCH ×3 (09:06→16:40)
[2021-06-02] MEDS: Calcitriol 0.25 MCG CAP PO SCH (09:06)
[2021-06-02] MEDS: Lidocaine 5% Patch TD SCH (09:08)
[2021-06-02] MEDS ORDERED: Heparin 10,000 UNITS/ 10 ML VIAL ONE (09:35)
[2021-06-02] MEDS ORDERED: traMADol HCl 50 MG TAB PO PRN (11:16)
[2021-06-02] MEDS: Morphine 4 MG/ML VIAL SLOW IVP PRN (15:53)
[2021-06-02] MEDS ORDERED: cloNIDine 0.1 MG TAB PO PRN (17:36)
[2021-06-02] MEDS: Atorvastatin Calcium 40 MG TAB PO SCH (21:08)
[2021-06-02] MEDS: Ondansetron PF 4 MG/2 ML Vial IVP PRN (21:08)
[2021-06-02] MEDS: Transdermal Patch Removal TOP SCH (21:11)
[2021-06-02] MEDS: READ PPD TEST SITE PO SCH (21:11)
[2021-06-02] MEDS: Tuberculin PPD 0.1 ML VIAL I-DERMAL SCH (21:11)
[2021-06-03] MEDS: Acetaminophen/Codeine 30-300mg Tablet PO PRN ×4 (02:42→21:44)
[2021-06-03 05:16] LABS: #Eosinphils 0.1 thou/uL (0.0-0.7); #Lymphocytes 1.4 thou/uL (1.20-3.40); #Monocytes 0.7 thou/uL (0.11-0.59); #Neutrophils 4.7 thou/uL (1.40-6.50); %Basophils 0.6 % (0.0-1.0); %Eosinophils 1.1 % (0.0-10.0); %Lymphocytes 20.7 % (21.0-51.0); %Monocytes 9.7 % (0.0-10.0); %Neutrophils 67.8 % (42.0-75.0); Hemoglobin 7.4 g/dL (12.0-16.0); Mean Corpuscular HGB CONC 33.4 g/dL (32.0-36.0); Mean Corpuscular Hemoglobin 30.3 pg (27.0-31.0); Mean Corpuscular Volume 90.9 fL (78.0-98.0); Mean Platelet Volume 7.5 fL (7.4-10.4); Platelet Count 171 thou/uL (130-400); RBC Distribution Width 15.1 % (11.5-14.5); Red Blood Cell (RBC) Count 2.45 mill/uL (4.20-5.40); White Blood Cell (WBC) Count 6.9 thou/uL (4.8-10.8)
[2021-06-03 05:38] LABS: Anion Gap 10 mmol/L (10-20); BUN (Urea Nitrogen) 10 mg/dL (9.8-20.1); Calc. Creatinine Clearance 18 mL/min (70-130); Carbon Dioxide 29 mmol/L (23-31); Chloride 99 mmol/L (98-107); Glucose 88 mg/dL (80-115); Potassium 3.6 mmol/L (3.5-5.1); Sodium 134 mmol/L (136-145)
[2021-06-03] MEDS: Ondansetron PF 4 MG/2 ML Vial IVP PRN ×2 (05:59→12:53)
[2021-06-03] MEDS ORDERED: FLU VACC QS2021-22(65YR UP)/PF 240 MCG/0.7 ML SYRINGE IM ONE (09:00)
[2021-06-03] MEDS: Lidocaine 5% Patch TD SCH (09:52)
[2021-06-03] MEDS: Carvedilol 6.25 MG TAB PO SCH ×2 (09:53→16:50)
[2021-06-03] MEDS: hydrALAZINE 25 MG TAB PO SCH ×3 (09:53→21:37)
[2021-06-03] MEDS: Ferrous Sulfate 325 MG TAB PO SCH ×2 (09:53→16:51)
[2021-06-03] MEDS: Sevelamer Carbonate 800 MG TAB PO SCH ×3 (09:54→16:51)
[2021-06-03] MEDS: Calcitriol 0.25 MCG CAP PO SCH (09:54)
[2021-06-03] MEDS ORDERED: NIFEdipine XL 60 MG TAB PO SCH (12:15)
[2021-06-03] MEDS: hydrALAZINE 20 MG/ML VIAL SLOW IVP PRN (13:34)
[2021-06-03] MEDS: Atorvastatin Calcium 40 MG TAB PO SCH (21:37)
[2021-06-03] MEDS: Transdermal Patch Removal TOP SCH (21:40)
[2021-06-04] MEDS: Lidocaine 5% Patch TD SCH (08:35)
[2021-06-04 08:37] VITALS: BMI 17.4
[2021-06-04] MEDS: Carvedilol 6.25 MG TAB PO SCH ×2 (08:50→17:23)
[2021-06-04] MEDS: Ferrous Sulfate 325 MG TAB PO SCH ×2 (08:50→17:23)
[2021-06-04] MEDS: hydrALAZINE 25 MG TAB PO SCH ×3 (08:51→21:45)
[2021-06-04] MEDS: NIFEdipine XL 60 MG TAB PO SCH ×2 (08:51→12:38)
[2021-06-04] MEDS: Calcitriol 0.25 MCG CAP PO SCH ×2 (08:51→12:38)
[2021-06-04] MEDS: Sevelamer Carbonate 800 MG TAB PO SCH ×3 (08:51→17:23)
[2021-06-04] MEDS ORDERED: Heparin 10,000 UNITS/ 10 ML VIAL ONE (09:36)
[2021-06-04 11:03] LABS: #Eosinphils 0.1 thou/uL (0.0-0.7); #Lymphocytes 0.8 thou/uL (1.20-3.40); #Monocytes 0.4 thou/uL (0.11-0.59); #Neutrophils 5.9 thou/uL (1.40-6.50); %Basophils 0.5 % (0.0-1.0); %Eosinophils 1.1 % (0.0-10.0); %Lymphocytes 10.4 % (21.0-51.0); %Monocytes 5.7 % (0.0-10.0); %Neutrophils 82.3 % (42.0-75.0); Hemoglobin 7.6 g/dL (12.0-16.0); Mean Corpuscular HGB CONC 32.5 g/dL (32.0-36.0); Mean Corpuscular Volume 92.4 fL (78.0-98.0); Platelet Count 180 thou/uL (130-400); RBC Distribution Width 15.5 % (11.5-14.5); Red Blood Cell (RBC) Count 2.54 mill/uL (4.20-5.40); White Blood Cell (WBC) Count 7.2 thou/uL (4.8-10.8)
[2021-06-04] MEDS: Acetaminophen/Codeine 30-300mg Tablet PO PRN ×2 (12:39→21:50)
[2021-06-04] MEDS: Ondansetron PF 4 MG/2 ML Vial IVP PRN (12:40)
[2021-06-04] MEDS: Atorvastatin Calcium 40 MG TAB PO SCH (21:50)
[2021-06-05] MEDS: Acetaminophen/Codeine 30-300mg Tablet PO PRN ×5 (03:28→22:24)
[2021-06-05] MEDS: Transdermal Patch Removal TOP SCH ×2 (03:31→23:16)
[2021-06-05 05:23] LABS: Anion Gap 8 mmol/L (10-20); BUN (Urea Nitrogen) 14 mg/dL (9.8-20.1); Calc. Creatinine Clearance 14 mL/min (70-130); Calcium 8.3 mg/dL (7.8-10.44); Carbon Dioxide 34 mmol/L (23-31); Chloride 95 mmol/L (98-107); Glucose 130 mg/dL (80-115); Potassium 3.7 mmol/L (3.5-5.1); Sodium 133 mmol/L (136-145)
[2021-06-05] MEDS: Carvedilol 6.25 MG TAB PO SCH ×2 (08:00→16:56)
[2021-06-05] MEDS: Ferrous Sulfate 325 MG TAB PO SCH ×2 (08:00→16:56)
[2021-06-05] MEDS: Sevelamer Carbonate 800 MG TAB PO SCH ×3 (08:00→16:56)
[2021-06-05] MEDS: NIFEdipine XL 60 MG TAB PO SCH (08:01)
[2021-06-05] MEDS: Calcitriol 0.25 MCG CAP PO SCH (08:01)
[2021-06-05] MEDS: hydrALAZINE 25 MG TAB PO SCH ×3 (08:01→20:56)
[2021-06-05] MEDS: Lidocaine 5% Patch TD SCH (08:02)
[2021-06-05] MEDS: Atorvastatin Calcium 40 MG TAB PO SCH (20:56)
[2021-06-06] MEDS: Acetaminophen/Codeine 30-300mg Tablet PO PRN ×3 (04:25→17:43)
[2021-06-06 05:33] LABS: #Eosinphils 0.1 thou/uL (0.0-0.7); #Lymphocytes 1.2 thou/uL (1.20-3.40); #Monocytes 0.7 thou/uL (0.11-0.59); #Neutrophils 5.4 thou/uL (1.40-6.50); %Basophils 0.3 % (0.0-1.0); %Eosinophils 1.9 % (0.0-10.0); %Lymphocytes 15.8 % (21.0-51.0); %Monocytes 9.3 % (0.0-10.0); %Neutrophils 72.6 % (42.0-75.0); Hemoglobin 8.4 g/dL (12.0-16.0); Mean Corpuscular HGB CONC 32.2 g/dL (32.0-36.0); Mean Corpuscular Hemoglobin 30.5 pg (27.0-31.0); Mean Corpuscular Volume 94.8 fL (78.0-98.0); Mean Platelet Volume 7.5 fL (7.4-10.4); Platelet Count 201 thou/uL (130-400); RBC Distribution Width 16.2 % (11.5-14.5); Red Blood Cell (RBC) Count 2.76 mill/uL (4.20-5.40); White Blood Cell (WBC) Count 7.4 thou/uL (4.8-10.8)
[2021-06-06 05:50] LABS: Anion Gap 11 mmol/L (10-20); BUN (Urea Nitrogen) 29 mg/dL (9.8-20.1); Calc. Creatinine Clearance 10 mL/min (70-130); Calcium 8.7 mg/dL (7.8-10.44); Carbon Dioxide 36 mmol/L (23-31); Chloride 89 mmol/L (98-107); Glucose 118 mg/dL (80-115); Sodium 132 mmol/L (136-145)
[2021-06-06] MEDS: Lidocaine 5% Patch TD SCH ×2 (09:08→09:14)
[2021-06-06] MEDS: Calcitriol 0.25 MCG CAP PO SCH (09:08)
[2021-06-06] MEDS: Sevelamer Carbonate 800 MG TAB PO SCH ×3 (09:08→17:43)
[2021-06-06] MEDS: Carvedilol 6.25 MG TAB PO SCH ×2 (09:08→17:44)
[2021-06-06] MEDS: Ferrous Sulfate 325 MG TAB PO SCH ×2 (09:09→17:43)
[2021-06-06] MEDS: NIFEdipine XL 60 MG TAB PO SCH (09:09)
[2021-06-06] MEDS: hydrALAZINE 25 MG TAB PO SCH ×3 (09:09→20:33)
[2021-06-06] MEDS: Ondansetron PF 4 MG/2 ML Vial IVP PRN (17:39)
[2021-06-06] MEDS: Atorvastatin Calcium 40 MG TAB PO SCH (20:31)
[2021-06-06] MEDS: EPOETIN ALFA-EPBX (ESRD) 4,000 UNIT/ML VIAL SC SCH (20:33)
[2021-06-06] MEDS: Acetaminophen 325 MG TAB PO PRN (20:34)
[2021-06-06] MEDS: Transdermal Patch Removal TOP SCH (20:41)
[2021-06-07] MEDS: Acetaminophen/Codeine 30-300mg Tablet PO PRN ×2 (02:01→12:15)
[2021-06-07] MEDS: Carvedilol 6.25 MG TAB PO SCH (08:20)
[2021-06-07] MEDS: Calcitriol 0.25 MCG CAP PO SCH (08:20)
[2021-06-07] MEDS: Ferrous Sulfate 325 MG TAB PO SCH (08:20)
[2021-06-07] MEDS: Sevelamer Carbonate 800 MG TAB PO SCH ×2 (08:20→12:10)
[2021-06-07] MEDS: Lidocaine 5% Patch TD SCH (08:21)
[2021-06-07] MEDS: Morphine 4 MG/ML VIAL SLOW IVP PRN (08:21)
[2021-06-07] MEDS: hydrALAZINE 25 MG TAB PO SCH ×2 (08:21→15:38)
[2021-06-07] MEDS: NIFEdipine XL 60 MG TAB PO SCH (08:21)
[2021-06-07 11:36] LABS: SARS-CoV-2 PCR by NAA Not Detected (NotDetected)
[2021-06-07] MEDS ORDERED: Heparin 10,000 UNITS/ 10 ML VIAL ONE (12:17)
[2021-06-07 15:57] VITALS: BP 141/64; TEMP 97.7
== END 2021-06-07 16:20 | disposition home or self-care (01) | DRG 673 ==
LOC: ERS 16:33 → ERHOLD 21:02 → IMCU/EMU 23:16 → 2NO 06-02 03:12
PROVIDERS: ADMIT Internal Medicine; ATTEND Internal Medicine
PROC: 30233N1 Transfusion of Nonautologous Red Blood Cells into Peripheral Vein, Percutaneous Approach (ICD-10-PCS; 2021-05-30)
PROC: 031C0ZF Bypass Left Radial Artery to Lower Arm Vein, Open Approach (ICD-10-PCS; principal; 2021-06-01)
PROC: 0JH60XZ Insertion of Tunneled Vascular Access Device into Chest Subcutaneous Tissue and Fascia, Open Approach (ICD-10-PCS; 2021-06-01)
PROC: 02HV33Z Insertion of Infusion Device into Superior Vena Cava, Percutaneous Approach (ICD-10-PCS; 2021-06-01)
PROC: B5181ZA Fluoroscopy of Superior Vena Cava using Low Osmolar Contrast, Guidance (ICD-10-PCS; 2021-06-01)
PROC: B548ZZA Ultrasonography of Superior Vena Cava, Guidance (ICD-10-PCS; 2021-06-01)
PROC: 5A1D70Z Performance of Urinary Filtration, Intermittent, Less than 6 Hours Per Day (ICD-10-PCS; 2021-06-01)
DX: N17.9 Acute kidney failure, unspecified (principal); J96.01 Acute respiratory failure with hypoxia; I25.810 Atherosclerosis of coronary artery bypass graft(s) without angina pectoris; I50.22 Chronic systolic (congestive) heart failure; Z20.822 Contact with and (suspected) exposure to COVID-19; E11.22 Type 2 diabetes mellitus with diabetic chronic kidney disease; N18.6 End stage renal disease; I11.0 Hypertensive heart disease with heart failure; D63.1 Anemia in chronic kidney disease; N25.81 Secondary hyperparathyroidism of renal origin; F32.A Depression, unspecified; J44.9 Chronic obstructive pulmonary disease, unspecified; E11.40 Type 2 diabetes mellitus with diabetic neuropathy, unspecified; G89.29 Other chronic pain; M54.9 Dorsalgia, unspecified; Z79.82 Long term (current) use of aspirin; Z79.899 Other long term (current) drug therapy; Z95.1 Presence of aortocoronary bypass graft; Z87.891 Personal history of nicotine dependence
CPT/HCPCS: 36415; 36416; 36430; 71045; 74176; 80048; 80053; 81003; 81015; 82553; 82805; 83540; 83550; 83605; 83690; 83735; 83880; 83970; 84100; 84484; 85025; 86580; 86704; 86706; 86803; 86850; 86900; 86901; 87340; 87350; 90471; 90662; 90935; 93005; C1713; C1752; C1776; G0008; G0257; J0171; J0360; J1642; J1644; J1940; J2001; J2270; J2405; J2704; J2720; J2765; J3010; P9016; Q5105; S0020; S0028; U0002; U0003; U0005

== ENCOUNTER 2021-09-14 15:01 | Observation (INO) | payer MEDICARE ==
[2021-09-14 15:50] LABS: #Eosinphils 0.1 thou/uL (0.0-0.7); #Lymphocytes 1.3 thou/uL (1.20-3.40); #Monocytes 0.4 thou/uL (0.11-0.59); #Neutrophils 3.6 thou/uL (1.40-6.50); %Basophils 0.7 % (0.0-1.0); %Eosinophils 1.2 % (0.0-10.0); %Lymphocytes 24.6 % (21.0-51.0); %Monocytes 8.1 % (0.0-10.0); %Neutrophils 65.5 % (42.0-75.0); Hemoglobin 16.9 g/dL (12.0-16.0); Mean Corpuscular Hemoglobin 28.2 pg (27.0-31.0); Mean Corpuscular Volume 90.9 fL (78.0-98.0); Mean Platelet Volume 10.5 fL (7.4-10.4); Platelet Count 147 thou/uL (130-400); RBC Distribution Width 19.1 % (11.5-14.5); Red Blood Cell (RBC) Count 5.99 mill/uL (4.20-5.40); White Blood Cell (WBC) Count 5.5 thou/uL (4.8-10.8)
[2021-09-14 16:12] LABS: ALT (SGPT) 38 U/L (8-55); AST (SGOT) 44 U/L (5-34); Alkaline Phosphatase 80 U/L (40-110); Anion Gap 13 mmol/L (10-20); BUN (Urea Nitrogen) 57 mg/dL (9.8-20.1); Bilirubin, Total 0.4 mg/dL (0.2-1.2); Calc. Creatinine Clearance 0 mL/min (70-130); Calcium 8.4 mg/dL (7.8-10.44); Carbon Dioxide 21 mmol/L (23-31); Chloride 102 mmol/L (98-107); Globulin 3.3 g/dL (2.4-3.5); Glucose 125 mg/dL (80-115); Potassium 4.4 mmol/L (3.5-5.1); Protein, Total 7.3 g/dL (5.8-8.1); Sodium 132 mmol/L (136-145)
[2021-09-14 16:33] LABS: CKMB 1.8 ng/mL (0-6.6)
[2021-09-14 17:02] LABS: SARS-CoV-2 NAA Rapid Test Not Detected (NotDetected)
[2021-09-14 17:25] LABS: Bacteria/HPF 2+ HPF (None Seen); Bilirubin Negative (Negative); Blood, Urine 2+ (Negative); Clarity Turbid (Clear); Glucose, Urine (Dipstick) 150 mg/dL (Negative); Ketone, Urine Negative (Negative); Leukocyte 500 Leu/uL (Negative); Nitrite Negative (Negative); Protein, Urine (Dipstick) 300 mg/dL (Neg-Trace); RBC/HPF 21-50 HPF (0-3); Specific Gravity, Urine 1.015 (1.002-1.036); Urobilinogen Normal mg/dL (Less than 2); WBC/HPF Greater than 50 HPF (0-3)
[2021-09-14] MEDS ORDERED: hydrALAZINE 20 MG/ML VIAL SLOW IVP PRN ×2 (19:41→23:44)
[2021-09-14] MEDS: Acetaminophen 325 MG TAB PO PRN (19:53)
[2021-09-14] MEDS ORDERED: Dextrose 50% Abboject 50 ML SYRINGE SLOW IVP PRN (20:08)
[2021-09-14] MEDS ORDERED: HYDROcodone/Acetaminophen 5/325 mg Tablet PO PRN (20:08)
[2021-09-14] MEDS ORDERED: HYDROcodone/Acetaminophen 7.5/325 mg Tablet PO PRN (20:08)
[2021-09-14] MEDS ORDERED: HumaLOG 300 UNITS/3 ML VIAL SC PRN ×2 (20:08)
[2021-09-14] MEDS ORDERED: Ondansetron PF 4 MG/2 ML Vial IVP PRN (20:08)
[2021-09-14] MEDS ORDERED: Dextrose 5% in Water 1,000 ML IV PRN (20:08)
[2021-09-14] MEDS ORDERED: Melatonin 3 MG TAB PO PRN (20:14)
[2021-09-14] MEDS: Pantoprazole 40 MG VIAL IVP SCH (21:07)
[2021-09-14] MEDS ORDERED: Atorvastatin Calcium 40 MG TAB PO SCH (21:45)
[2021-09-14] MEDS ORDERED: Carvedilol 6.25 MG TAB PO SCH (21:45)
[2021-09-14] MEDS ORDERED: hydrALAZINE 25 MG TAB PO SCH (21:45)
[2021-09-14] MEDS ORDERED: NIFEdipine XL 60 MG TAB PO SCH (21:45)
[2021-09-14] MEDS ORDERED: Sevelamer Carbonate 800 MG TAB PO SCH (21:45)
[2021-09-14] MEDS ORDERED: NIFEdipine XL 90 MG TAB PO SCH (22:00)
[2021-09-14] MEDS ORDERED: hydrALAZINE 20 MG/ML VIAL SLOW IVP SCH (23:45)
[2021-09-14] MEDS ORDERED: cefTRIAXone\\ROCEPHIN 1 GM in Sodium Chloride 0.9% 100 ML IVPB SCH (23:59)
[2021-09-15] MEDS: Acetaminophen 325 MG TAB PO PRN ×2 (00:01→08:20)
[2021-09-15 01:43] LABS: Troponin I 0.036 ng/mL (< 0.028)
[2021-09-15 02:39] LABS: Bacteria/HPF None Seen HPF (None Seen); Bilirubin Negative (Negative); Blood, Urine 1+ (Negative); Clarity Clear (Clear); Glucose, Urine (Dipstick) 30 mg/dL (Negative); Ketone, Urine Negative (Negative); Leukocyte 500 Leu/uL (Negative); Nitrite Negative (Negative); Protein, Urine (Dipstick) 200 mg/dL (Neg-Trace); Specific Gravity, Urine 1.011 (1.002-1.036); Squamous Epithelial 0-3 HPF (0-3); Urobilinogen Normal mg/dL (Less than 2); WBC/HPF 21-50 HPF (0-3); pH, Urine 6.5 (5.0-9.0)
[2021-09-15 02:45] LABS: Amphetamine Not Detected (NotDetected); Barbiturates Screen Not Detected (NotDetected); Benzodiazepine Screen Not Detected (NotDetected); Cocaine Metabolite Screen Not Detected (NotDetected); Methadone Not Detected (NotDetected); Methamphetamine Not Detected (NotDetected); Opiate Screen Detected (NotDetected); Oxycodone Screen Not Detected (NotDetected); Phencyclidine (PCP) Not Detected (NotDetected); THC/Cannabinoid Screen Detected (NotDetected); Tricyclic Screen Not Detected (NotDetected)
[2021-09-15 02:48] LABS: Urine Culture Reflex Yes Yes
[2021-09-15 05:01] LABS: #Basophils 0.1 thou/uL (0.0-0.2); #Eosinphils 0.1 thou/uL (0.0-0.7); #Lymphocytes 1.6 thou/uL (1.20-3.40); #Monocytes 0.4 thou/uL (0.11-0.59); #Neutrophils 4.4 thou/uL (1.40-6.50); %Lymphocytes 24.2 % (21.0-51.0); %Monocytes 6.5 % (0.0-10.0); %Neutrophils 67.3 % (42.0-75.0); Hemoglobin 14.9 g/dL (12.0-16.0); Hemoglobin A1c 5.7 % (4.0-6.0); Mean Corpuscular Hemoglobin 28.1 pg (27.0-31.0); Mean Corpuscular Volume 90.5 fL (78.0-98.0); Mean Platelet Volume 10.5 fL (7.4-10.4); Platelet Count 163 thou/uL (130-400); RBC Distribution Width 18.9 % (11.5-14.5); White Blood Cell (WBC) Count 6.5 thou/uL (4.8-10.8)
[2021-09-15 05:11] LABS: Troponin I 0.043 ng/mL (< 0.028)
[2021-09-15 05:26] LABS: ALT (SGPT) 30 U/L (8-55); AST (SGOT) 29 U/L (5-34); Albumin 3.7 g/dL (3.4-4.8); Alkaline Phosphatase 75 U/L (40-110); Anion Gap 19 mmol/L (10-20); BUN (Urea Nitrogen) 59 mg/dL (9.8-20.1); Bilirubin, Total 0.4 mg/dL (0.2-1.2); Calc. Creatinine Clearance 8 mL/min (70-130); Calcium 8.2 mg/dL (7.8-10.44); Carbon Dioxide 18 mmol/L (23-31); Chloride 102 mmol/L (98-107); Glucose 126 mg/dL (80-115); Protein, Total 6.7 g/dL (5.8-8.1); Sodium 135 mmol/L (136-145)
[2021-09-15] MEDS ORDERED: Carvedilol 6.25 MG TAB PO SCH (08:00)
[2021-09-15] MEDS: Sevelamer Carbonate 800 MG TAB PO SCH ×2 (08:20→13:06)
[2021-09-15] MEDS: Pantoprazole 40 MG VIAL IVP SCH (08:21)
[2021-09-15] MEDS: NIFEdipine XL 90 MG TAB PO SCH ×2 (09:00→13:06)
[2021-09-15] MEDS ORDERED: Aspirin 81 mg Enteric Coated Tablet PO SCH (09:00)
[2021-09-15] MEDS ORDERED: hydrALAZINE 25 MG TAB PO SCH (09:00)
[2021-09-15 12:56] VITALS: BMI 20.6
[2021-09-15 16:06] VITALS: BP 174/75; TEMP 99.1
[2021-09-15] MEDS ORDERED: Atorvastatin Calcium 40 MG TAB PO SCH (21:00)
== END 2021-09-15 16:35 | disposition home or self-care (01) ==
LOC: ERS 15:01 → 2SW 17:05
PROVIDERS: ADMIT Family Medicine; ATTEND Internal Medicine
DX: I13.2 Hypertensive heart and chronic kidney disease with heart failure and with stage 5 chronic kidney disease, or end stage renal disease (principal); E11.22 Type 2 diabetes mellitus with diabetic chronic kidney disease; N18.6 End stage renal disease; I50.43 Acute on chronic combined systolic (congestive) and diastolic (congestive) heart failure; D63.1 Anemia in chronic kidney disease; J44.9 Chronic obstructive pulmonary disease, unspecified; I25.2 Old myocardial infarction; M19.90 Unspecified osteoarthritis, unspecified site; E11.319 Type 2 diabetes mellitus with unspecified diabetic retinopathy without macular edema; N39.0 Urinary tract infection, site not specified; K92.1 Melena; E78.5 Hyperlipidemia, unspecified; Z87.891 Personal history of nicotine dependence; Z91.15 Patient's noncompliance with renal dialysis; Z79.82 Long term (current) use of aspirin; Z79.899 Other long term (current) drug therapy; Z95.1 Presence of aortocoronary bypass graft; Z99.2 Dependence on renal dialysis; Z20.822 Contact with and (suspected) exposure to COVID-19
CPT/HCPCS: 71045; 80053; 80306; 81001; 82553; 82962 ×2; 83036; 83880; 84484 ×3; 85025; 87040; 87086; 87804 ×2; 93005; 94640; 94760; U0002; 36415; 36416; 81003; 81015; 84443; 96365; 96375; 96376; C9113; G0378; J0360; J0696; J3490; J7620

== ENCOUNTER 2021-10-19 07:41 | Observation (INO) | payer MEDICARE ==
[2021-10-19] MEDS ORDERED: Heparin 10,000 UNITS/ 10 ML VIAL ONE (08:50)
[2021-10-19 09:17] LABS: ALT (SGPT) 41 U/L (8-55); AST (SGOT) 36 U/L (5-34); Albumin 3.6 g/dL (3.4-4.8); Alkaline Phosphatase 60 U/L (40-110); Anion Gap 20 mmol/L (10-20); BUN (Urea Nitrogen) 90 mg/dL (9.8-20.1); Bilirubin, Total 0.7 mg/dL (0.2-1.2); Calc. Creatinine Clearance 0 mL/min (70-130); Calcium 8.3 mg/dL (7.8-10.44); Carbon Dioxide 17 mmol/L (23-31); Chloride 105 mmol/L (98-107); Globulin 2.7 g/dL (2.4-3.5); Glucose 136 mg/dL (80-115); Magnesium 2.2 mg/dL (1.6-2.6); Potassium 4.6 mmol/L (3.5-5.1); Protein, Total 6.3 g/dL (5.8-8.1); Sodium 137 mmol/L (136-145)
[2021-10-19] MEDS ORDERED: Calcium Chloride 1 GM/10 ML Abboject SYRINGE ONE (10:04)
[2021-10-19 10:22] LABS: Hemoglobin 6.2 g/dL (12.0-16.0); Mean Corpuscular HGB CONC 31.9 g/dL (32.0-36.0); Mean Corpuscular Hemoglobin 29.9 pg (27.0-31.0); Mean Corpuscular Volume 93.5 fL (78.0-98.0); Mean Platelet Volume 8.5 fL (7.4-10.4); Platelet Count 210 thou/uL (130-400); RBC Distribution Width 26.6 % (11.5-14.5); Red Blood Cell (RBC) Count 2.09 mill/uL (4.20-5.40)
[2021-10-19 10:42] LABS: Band 1 % (5-11); Lymphocytes 14 % (21-51); MDiff Complete? YES; Monocytes 2 % (0-10); Neutrophil 83 % (42-75); Nucleated RBC 1 % (0); Platelet Morphology Comment Appears Adequate; Polychromasia MODERATE = 3-4 cells (100X) (0-2/hpf); Schistocytes SLIGHT = 2-5 cells (100X) (0-1/hpf); Tear Drops SLIGHT = 2-5 cells (100X) (0-1/hpf)
[2021-10-19] MEDS ORDERED: Acetaminophen 500 MG TAB ONE (12:10)
[2021-10-19] MEDS ORDERED: Dextrose 5% in Water 1,000 ML IV PRN (12:36)
[2021-10-19] MEDS ORDERED: Insulin Regular 300 UNITS/3 ML VIAL SC PRN (12:36)
[2021-10-19] MEDS ORDERED: HumaLOG 300 UNITS/3 ML VIAL SC PRN ×2 (12:36→13:06)
[2021-10-19] MEDS ORDERED: Dextrose 50% Abboject 50 ML SYRINGE SLOW IVP PRN (12:36)
[2021-10-19] MEDS ORDERED: Acetaminophen 650 MG Suppository PR PRN (12:40)
[2021-10-19] MEDS ORDERED: Ondansetron ODT 4 MG TAB PO PRN (12:40)
[2021-10-19] MEDS ORDERED: Ondansetron PF 4 MG/2 ML Vial IVP PRN (12:40)
[2021-10-19] MEDS ORDERED: hydrALAZINE 20 MG/ML VIAL SLOW IVP PRN (12:45)
[2021-10-19] MEDS ORDERED: Albuterol Sulfate 2.5 mg/3 ml Neb NEB PRN (12:46)
[2021-10-19] MEDS ORDERED: traMADol HCl 50 MG TAB PO SCH ×2 (13:30)
[2021-10-19] MEDS ORDERED: IRON SUCROSE COMPLEX 100 MG/5 ML SLOW IVP SCH (14:30)
[2021-10-19] MEDS ORDERED: EPOETIN ALFA-EPBX (ESRD) 4,000 UNIT/ML VIAL SC SCH (15:00)
[2021-10-19] MEDS ORDERED: Epoetin (ESRD) 10,000 UNITS/ML VIAL SC SCH (15:00)
[2021-10-19] MEDS ORDERED: Iron, Sodium Ferric Gluconate 125 MG in Sodium Chloride 0.9% 100 ML IVPB SCH (16:00)
[2021-10-19 18:28] LABS: #Lymphocytes 1.7 thou/uL (1.20-3.40); #Monocytes 0.4 thou/uL (0.11-0.59); #Neutrophils 7.3 thou/uL (1.40-6.50); %Basophils 0.4 % (0.0-1.0); %Eosinophils 0.3 % (0.0-10.0); %Lymphocytes 17.6 % (21.0-51.0); %Neutrophils 77.7 % (42.0-75.0); Hemoglobin 7.8 g/dL (12.0-16.0); Mean Corpuscular HGB CONC 33.6 g/dL (32.0-36.0); Mean Corpuscular Hemoglobin 30.3 pg (27.0-31.0); Mean Corpuscular Volume 90.4 fL (78.0-98.0); Mean Platelet Volume 7.9 fL (7.4-10.4); Platelet Count 194 thou/uL (130-400); Red Blood Cell (RBC) Count 2.57 mill/uL (4.20-5.40); White Blood Cell (WBC) Count 9.4 thou/uL (4.8-10.8)
[2021-10-19 18:38] LABS: Anisocytosis MODERATE=16-30 cells (100X) (0-5/hpf); Iron 121 ug/dL (50-170); Iron Binding Capacity, Total 265 mcg/dL (265-497); MDiff Complete? YES; Ovalocytes SLIGHT = 2-5 cells (100X) (0-1/hpf); Platelet Morphology Comment Appears Adequate; Polychromasia MODERATE = 3-4 cells (100X) (0-2/hpf); Schistocytes SLIGHT = 2-5 cells (100X) (0-1/hpf)
[2021-10-19] MEDS ORDERED: Atorvastatin Calcium 40 MG TAB PO SCH (21:00)
[2021-10-19] MEDS: hydrALAZINE 25 MG TAB PO SCH (21:15)
[2021-10-19] MEDS: Pantoprazole 40 MG VIAL IVP SCH (21:15)
[2021-10-19 21:36] LABS: SARS-CoV-2 PCR by NAA Not Detected (NotDetected)
[2021-10-19] MEDS: Acetaminophen 325 MG TAB PO PRN (22:57)
[2021-10-20] MEDS: Acetaminophen 325 MG TAB PO PRN (04:28)
[2021-10-20 04:45] LABS: #Basophils 0.1 thou/uL (0.0-0.2); #Lymphocytes 1.6 thou/uL (1.20-3.40); #Monocytes 0.7 thou/uL (0.11-0.59); #Neutrophils 6.6 thou/uL (1.40-6.50); %Basophils 0.6 % (0.0-1.0); %Eosinophils 0.3 % (0.0-10.0); %Lymphocytes 17.7 % (21.0-51.0); %Neutrophils 73.5 % (42.0-75.0); Hemoglobin 7.8 g/dL (12.0-16.0); Mean Corpuscular HGB CONC 31.9 g/dL (32.0-36.0); Mean Corpuscular Hemoglobin 30.6 pg (27.0-31.0); Mean Corpuscular Volume 95.9 fL (78.0-98.0); Mean Platelet Volume 7.7 fL (7.4-10.4); Platelet Count 200 thou/uL (130-400); RBC Distribution Width 25.2 % (11.5-14.5); Red Blood Cell (RBC) Count 2.55 mill/uL (4.20-5.40)
[2021-10-20 04:53] LABS: Anion Gap 17 mmol/L (10-20); BUN (Urea Nitrogen) 39 mg/dL (9.8-20.1); Calc. Creatinine Clearance 11 mL/min (70-130); Calcium 7.8 mg/dL (7.8-10.44); Carbon Dioxide 21 mmol/L (23-31); Chloride 103 mmol/L (98-107); Glucose 95 mg/dL (80-115); Potassium 3.7 mmol/L (3.5-5.1); Sodium 137 mmol/L (136-145)
[2021-10-20 05:09] LABS: Hemoglobin A1c 5.6 % (4.0-6.0)
[2021-10-20] MEDS ORDERED: Carvedilol 6.25 MG TAB PO SCH (08:00)
[2021-10-20] MEDS ORDERED: NIFEdipine XL 90 MG TAB PO SCH (09:00)
[2021-10-20] MEDS ORDERED: Folic Acid/Vit B Comp W-C PO SCH (09:00)
[2021-10-20] MEDS ORDERED: Acetaminophen/Codeine 30-300mg Tablet PO PRN (09:05)
[2021-10-20] MEDS: hydrALAZINE 25 MG TAB PO SCH (10:23)
[2021-10-20] MEDS: Pantoprazole 40 MG VIAL IVP SCH ×2 (10:23)
[2021-10-20 12:09] VITALS: BP 134/57; TEMP 97.8
[2021-10-21] MEDS ORDERED: SODIUM FERRIC GLUCONATE IVPB SCH (09:00)
[2021-10-21] MEDS ORDERED: DEXTROSE 5% IVPB SCH (09:00)
[2021-10-21] MEDS ORDERED: IRON IVPB SCH (09:00)
[2021-10-21] MEDS ORDERED: WATER IVPB SCH (09:00)
== END 2021-10-20 14:20 | disposition home or self-care (01) ==
LOC: ERS 07:41 → 2SW 11:06
PROVIDERS: ADMIT Internal Medicine; ATTEND Internal Medicine
DX: J96.01 Acute respiratory failure with hypoxia (principal); E87.70 Fluid overload, unspecified; I16.0 Hypertensive urgency; I13.2 Hypertensive heart and chronic kidney disease with heart failure and with stage 5 chronic kidney disease, or end stage renal disease; E11.22 Type 2 diabetes mellitus with diabetic chronic kidney disease; N18.6 End stage renal disease; I50.42 Chronic combined systolic (congestive) and diastolic (congestive) heart failure; D63.1 Anemia in chronic kidney disease; I25.10 Atherosclerotic heart disease of native coronary artery without angina pectoris; J44.1 Chronic obstructive pulmonary disease with (acute) exacerbation; E78.5 Hyperlipidemia, unspecified; F12.10 Cannabis abuse, uncomplicated; Z91.15 Patient's noncompliance with renal dialysis; Z79.899 Other long term (current) drug therapy; Z99.2 Dependence on renal dialysis; Z95.1 Presence of aortocoronary bypass graft; Z20.822 Contact with and (suspected) exposure to COVID-19
CPT/HCPCS: 36430; 71045; 80048; 80053; 82728; 82962 ×2; 83036; 83540; 83550; 83735; 85025 ×3; 86850; 86900; 86901; 86920; 93005; 94640 ×2; 94760; 97139 ×3; 99285; P9016; Q4081; U0003; U0005; 36415; 36416; 82274; 90935; 96372; 96374; 96375; C9113; G0257; G0378; J0360; J1644; J2405; J2916; J3490; J7620

== ENCOUNTER 2021-12-28 14:52 | Emergency (ER) | payer MEDICARE | END 2021-12-28 16:28 | disposition home or self-care (01) | LOC: ERS 14:52 | DX: T82.848A Pain due to vascular prosthetic devices, implants and grafts, initial encounter (principal); M54.2 Cervicalgia | CPT/HCPCS: 70450; 71045 ==

== ENCOUNTER 2022-07-12 07:39 | Outpatient (CLI) | payer MEDICARE | END 2022-07-12 07:40 | disposition home or self-care (01) | LOC: ULT 07:39 | PROVIDERS: ATTEND Nurse Practitioner Family | DX: N93.9 Abnormal uterine and vaginal bleeding, unspecified (principal); N85.8 Other specified noninflammatory disorders of uterus; R18.8 Other ascites | CPT/HCPCS: 76700; 76856 ==

== ENCOUNTER 2022-08-23 14:40 | Emergency (ER) | payer MEDICARE ==
[2022-08-23 15:41] LABS: #Lymphocytes 1.6 thou/uL (1.20-3.40); #Monocytes 0.4 thou/uL (0.11-0.59); #Neutrophils 7.6 thou/uL (1.40-6.50); %Basophils 0.1 % (0.0-1.0); %Eosinophils 0.5 % (0.0-10.0); %Lymphocytes 16.7 % (21.0-51.0); %Monocytes 3.7 % (0.0-10.0); %Neutrophils 79.1 % (42.0-75.0); Hemoglobin 12.3 g/dL (12.0-16.0); Mean Corpuscular HGB CONC 30.8 g/dL (32.0-36.0); Mean Corpuscular Hemoglobin 29.2 pg (27.0-31.0); Mean Corpuscular Volume 94.7 fl (78.0-98.0); Mean Platelet Volume 8.2 fL (7.4-10.4); Platelet Count 262 10x3/uL (130-400); RBC Distribution Width 17.5 % (11.5-14.5); Red Blood Cell (RBC) Count 4.21 mill/uL (4.20-5.40); White Blood Cell (WBC) Count 9.6 10x3/uL (4.8-10.8)
[2022-08-23 15:56] LABS: ALT (SGPT) 16 U/L (8-55); AST (SGOT) 21 U/L (5-34); Albumin 3.6 g/dL (3.4-4.8); Alkaline Phosphatase 74 U/L (40-110); Anion Gap 21 mmol/L (10-20); BUN (Urea Nitrogen) 80 mg/dL (9.8-20.1); Bilirubin, Total 0.5 mg/dL (0.2-1.2); Calc. Creatinine Clearance 0 mL/min (70-130); Calcium 8.9 mg/dL (7.8-10.44); Carbon Dioxide 18 mmol/L (23-31); Chloride 101 mmol/L (98-107); Estimated GFR 5; Globulin 2.9 g/dL (2.4-3.5); Glucose 121 mg/dL (80-115); Protein, Total 6.5 g/dL (5.8-8.1); Sodium 136 mmol/L (136-145)
[2022-08-23] MEDS ORDERED: Acetaminophen 325 MG TAB ONE (16:23)
[2022-08-23 17:36] LABS: CKMB 3.1 ng/mL (0-6.6)
[2022-08-23] MEDS ORDERED: hydrALAZINE 25 MG TAB ONE (17:46)
[2022-08-23 17:54] LABS: SARS-CoV-2 NAA Rapid Test Not Detected (NotDetected)
== END 2022-08-23 18:45 | disposition home or self-care (01) ==
LOC: ERS 14:40
DX: R05.9 Cough, unspecified (principal); R19.7 Diarrhea, unspecified; I11.0 Hypertensive heart disease with heart failure; I50.9 Heart failure, unspecified; E11.9 Type 2 diabetes mellitus without complications; Z87.891 Personal history of nicotine dependence; Z79.899 Other long term (current) drug therapy; Z20.822 Contact with and (suspected) exposure to COVID-19
CPT/HCPCS: 0240U; 71045; 80053; 82553; 83690; 84484; 85025; 93005; 94640; 36415

== ENCOUNTER → 2023-02-01 | Day surgery (SDC) | payer MEDICARE, MEDICAID ==
[2023-01-31 09:10] VITALS: BMI 20.5
[~2023-02-01] MED LIST changes: -Heparin 10,000 UNITS/ 10 ML VIAL ONE; +Lidocaine 1% PF 5 ML VIAL ONE; +PROPOFOL 200 MG/20 ML VIAL ONE; +Vasopressin 20 UNITS/ML VIAL ONE
[2023-02-01 10:58] LABS: Hematocrit 34.4 % (36.0-47.0); Hemoglobin 11.3 g/dL (12.0-16.0)
== END ==
LOC: SDC 07:05
PROVIDERS: ATTEND Internal Medicine Gastroenterology
PROC: 0DB98ZX Excision of Duodenum, Via Natural or Artificial Opening Endoscopic, Diagnostic (ICD-10-PCS; principal; 2023-02-01)
PROC: 0DBK8ZZ Excision of Ascending Colon, Via Natural or Artificial Opening Endoscopic (ICD-10-PCS; 2023-02-01)
DX: D12.2 Benign neoplasm of ascending colon (principal); C51.9 Malignant neoplasm of vulva, unspecified; K29.50 Unspecified chronic gastritis without bleeding; K29.80 Duodenitis without bleeding; K26.9 Duodenal ulcer, unspecified as acute or chronic, without hemorrhage or perforation; D50.9 Iron deficiency anemia, unspecified; I13.2 Hypertensive heart and chronic kidney disease with heart failure and with stage 5 chronic kidney disease, or end stage renal disease; I50.9 Heart failure, unspecified; N18.6 End stage renal disease; E11.22 Type 2 diabetes mellitus with diabetic chronic kidney disease; N17.9 Acute kidney failure, unspecified; I25.10 Atherosclerotic heart disease of native coronary artery without angina pectoris; J44.9 Chronic obstructive pulmonary disease, unspecified; F32.A Depression, unspecified; Z95.1 Presence of aortocoronary bypass graft; Z98.51 Tubal ligation status; Z98.49 Cataract extraction status, unspecified eye; Z87.891 Personal history of nicotine dependence; Z79.899 Other long term (current) drug therapy
CPT/HCPCS: 36415; 85014; 85018; 88305; 88342; J2704

== ENCOUNTER 2023-03-19 10:00 | Day surgery (SDC) | payer MEDICARE, MEDICAID ==
[2023-03-16 10:55] VITALS: BMI 19.5
[2023-03-19] MEDS ORDERED: fentaNYL PF 100 MCG/2 ML SYRINGE ONE (10:33)
[2023-03-19 10:56] LABS: #Monocytes 0.5 thou/uL (0.11-0.59); #Neutrophils 20.8 thou/uL (1.40-6.50); %Basophils 0.2 % (0.0-1.0); %Lymphocytes 3.8 % (21.0-51.0); %Neutrophils 93.5 % (42.0-75.0); Hematocrit 38.9 % (36.0-47.0); Hemoglobin 12.4 g/dL (12.0-16.0); Mean Corpuscular HGB CONC 31.9 g/dL (32.0-36.0); Mean Corpuscular Volume 100.3 fl (78.0-98.0); Mean Platelet Volume 10.7 fL (7.4-10.4); Platelet Count 178 10x3/uL (130-400); Red Blood Cell (RBC) Count 3.88 mill/uL (4.20-5.40); White Blood Cell (WBC) Count 22.2 10x3/uL (4.8-10.8)
[2023-03-19] MEDS ORDERED: fentaNYL 50 mcg/mL 1 mL Vial ONE (10:59)
[2023-03-19] MEDS ORDERED: Lidocaine 2% PF 5 ML VIAL ONE (11:19)
[2023-03-19] MEDS ORDERED: EPINEPHrine 1 MG/ML AMP ONE (11:19)
[2023-03-19] MEDS ORDERED: Bupivacaine 0.25% HCL 30 ML VIAL ONE (11:19)
[2023-03-19 11:20] LABS: Anion Gap 20 mmol/L (10-20); BUN (Urea Nitrogen) 43 mg/dL (9.8-20.1); Calc. Creatinine Clearance 8 mL/min (70-130); Carbon Dioxide 21 mmol/L (23-31); Chloride 99 mmol/L (98-107); Estimated GFR 9; Glucose 79 mg/dL (80-115); Potassium 4.6 mmol/L (3.5-5.1); Sodium 135 mmol/L (136-145)
[2023-03-19] MEDS ORDERED: Sodium Chloride 0.9% 100 ML ONE (11:38)
[2023-03-19] MEDS ORDERED: CEFAZOLIN 2 GM VIAL ONE (11:38)
[2023-03-19] MEDS ORDERED: Ketamine 50 MG/ML (10ML VIAL) ONE (12:07)
[2023-03-19] MEDS ORDERED: PROPOFOL 200 MG/20 ML VIAL ONE (12:24)
== END 2023-03-19 14:19 | disposition home or self-care (01) ==
LOC: SDC 10:00
PROVIDERS: ATTEND Surgery
PROC: 0JH60WZ Insertion of Totally Implantable Vascular Access Device into Chest Subcutaneous Tissue and Fascia, Open Approach (ICD-10-PCS; principal; 2023-03-19)
DX: C52 Malignant neoplasm of vagina (principal); C53.9 Malignant neoplasm of cervix uteri, unspecified
CPT/HCPCS: 36561; 71045; 80048; 85025; J3010; C1788; J0171; J1642; J2001; J2704; J3490; S0020

== ENCOUNTER 2023-03-21 15:19 | Inpatient (IN) | payer MEDICARE, MEDICAID ==
[~2023-03-21 15:19] MED LIST changes: +Iopamidol-370 76% 500 ML MDV (1 ML CHARGE) ONE; -Lidocaine 1% PF 5 ML VIAL ONE; -PROPOFOL 200 MG/20 ML VIAL ONE; -Vasopressin 20 UNITS/ML VIAL ONE
[2023-03-21] MEDS ORDERED: fentaNYL 50 mcg/mL 1 mL Vial ONE (16:48)
[2023-03-21 16:57] LABS: #Monocytes 0.6 thou/uL (0.11-0.59); #Neutrophils 20.3 thou/uL (1.40-6.50); %Basophils 0.1 % (0.0-1.0); %Eosinophils 0.1 % (0.0-10.0); %Monocytes 2.6 % (0.0-10.0); %Neutrophils 92.6 % (42.0-75.0); Hematocrit 38.1 % (36.0-47.0); Hemoglobin 12.4 g/dL (12.0-16.0); Mean Corpuscular HGB CONC 32.5 g/dL (32.0-36.0); Mean Corpuscular Hemoglobin 33.3 pg (27.0-31.0); Mean Corpuscular Volume 102.4 fl (78.0-98.0); Mean Platelet Volume 11.3 fL (7.4-10.4); Platelet Count 211 10x3/uL (130-400); RBC Distribution Width 19.5 % (11.5-14.5); Red Blood Cell (RBC) Count 3.72 mill/uL (4.20-5.40)
[2023-03-21 17:09] LABS: INR-International Normal Ratio 1.4; PTT 34.1 sec (22.9-36.1); Prothrombin Time 17.4 sec (12.0-14.7)
[2023-03-21 17:23] LABS: ALT (SGPT) Less than 7 U/L (8-55); AST (SGOT) 35 U/L (5-34); Albumin 3.7 g/dL (3.4-4.8); Alkaline Phosphatase 120 U/L (40-110); Anion Gap 22 mmol/L (10-20); BUN (Urea Nitrogen) 58 mg/dL (9.8-20.1); Bilirubin, Total 0.6 mg/dL (0.2-1.2); CK (CPK) 96 U/L (29-168); Calc. Creatinine Clearance 0 mL/min (70-130); Calcium 9.1 mg/dL (7.8-10.44); Carbon Dioxide 20 mmol/L (23-31); Chloride 96 mmol/L (98-107); Estimated GFR 7; Globulin 2.9 g/dL (2.4-3.5); Glucose 84 mg/dL (80-115); Lipase 12 U/L (8-78); Protein, Total 6.6 g/dL (5.8-8.1); Sodium 132 mmol/L (136-145)
[2023-03-21 17:27] LABS: Troponin I 0.159 ng/mL (< 0.028)
[2023-03-21] MEDS ORDERED: Insulin Regular 300 UNITS/3 ML VIAL ONE (18:50)
[2023-03-21] MEDS ORDERED: Calcium Gluc 4.6 MEQ/10 ML (100 MG/ML) ONE (18:51)
[2023-03-21] MEDS ORDERED: Cefepime 2 GM VIAL ONE (18:53)
[2023-03-21] MEDS ORDERED: Calcium Carbonate 500 MG ChewTAB PO PRN (20:19)
[2023-03-21] MEDS ORDERED: Famotidine 20 MG TAB PO SCH (21:00)
[2023-03-21] MEDS: Acetaminophen 325 MG TAB PO PRN (21:46)
[2023-03-21] MEDS: Carvedilol 6.25 MG TAB PO SCH (21:47)
[2023-03-21] MEDS: Sertraline 100 MG TAB PO SCH (21:47)
[2023-03-21] MEDS: Atorvastatin Calcium 40 MG TAB PO SCH (21:47)
[2023-03-21] MEDS: hydrALAZINE 25 MG TAB PO SCH (21:48)
[2023-03-22] MEDS ORDERED: Ipratropium/Albuterol 3 ML NEB NEB PRN (00:03)
[2023-03-22] MEDS ORDERED: Dextrose 5% in Water 1,000 ML IV PRN (00:04)
[2023-03-22] MEDS ORDERED: Glucagon 1 MG/ML KIT IM PRN (00:04)
[2023-03-22] MEDS ORDERED: HumaLOG 300 UNITS/3 ML VIAL SC PRN (00:04)
[2023-03-22] MEDS ORDERED: Dextrose 50% Abboject 50 ML SYRINGE SLOW IVP PRN (00:04)
[2023-03-22 00:17] LABS: Hemoglobin A1c 4.1 % (4.0-6.0)
[2023-03-22 00:34] LABS: Troponin I 0.155 ng/mL (< 0.028)
[2023-03-22] MEDS: HYDROcodone/Acetaminophen 5/325 mg Tablet PO PRN ×4 (01:51→15:21)
[2023-03-22] MEDS ORDERED: Labetalol HCl 100 MG/20 ML VIAL SLOW IVP PRN (02:16)
[2023-03-22] MEDS: Acetaminophen 325 MG TAB PO PRN ×2 (02:32→13:37)
[2023-03-22] MEDS: hydrALAZINE 20 MG/ML VIAL SLOW IVP PRN ×3 (02:33→14:23)
[2023-03-22 04:02] LABS: #Monocytes 0.5 thou/uL (0.11-0.59); #Neutrophils 17.8 thou/uL (1.40-6.50); %Basophils 0.2 % (0.0-1.0); %Eosinophils 0.1 % (0.0-10.0); %Monocytes 2.5 % (0.0-10.0); %Neutrophils 93.6 % (42.0-75.0); Hematocrit 35.9 % (36.0-47.0); Hemoglobin 11.6 g/dL (12.0-16.0); Mean Corpuscular HGB CONC 32.3 g/dL (32.0-36.0); Mean Corpuscular Hemoglobin 32.1 pg (27.0-31.0); Mean Corpuscular Volume 99.4 fl (78.0-98.0); Mean Platelet Volume 11.3 fL (7.4-10.4); Platelet Count 160 10x3/uL (130-400); Red Blood Cell (RBC) Count 3.61 mill/uL (4.20-5.40)
[2023-03-22 05:12] LABS: Troponin I 0.163 ng/mL (< 0.028)
[2023-03-22 05:17] LABS: Anion Gap 16 mmol/L (10-20); BUN (Urea Nitrogen) 29 mg/dL (9.8-20.1); Calc. Creatinine Clearance 11 mL/min (70-130); Calcium 8.5 mg/dL (7.8-10.44); Carbon Dioxide 26 mmol/L (23-31); Chloride 96 mmol/L (98-107); Estimated GFR 14; Glucose 64 mg/dL (80-115); Sodium 134 mmol/L (136-145)
[2023-03-22] MEDS: Doxycycline 100 MG CAP PO SCH ×2 (08:09→20:15)
[2023-03-22] MEDS: Carvedilol 6.25 MG TAB PO SCH ×2 (08:09→20:23)
[2023-03-22] MEDS: hydrALAZINE 25 MG TAB PO SCH ×2 (08:16→20:19)
[2023-03-22] MEDS ORDERED: Amlodipine 10 MG TAB PO SCH (09:00)
[2023-03-22] MEDS: NIFEdipine XL 90 MG ER.TAB PO SCH (09:06)
[2023-03-22] MEDS: HYDROcodone/Acetaminophen 10/325 mg Tablet PO PRN ×2 (18:27→23:38)
[2023-03-22] MEDS: Cefepime 1 GM in Sodium Chloride 0.9% 100 ML IVPB SCH (18:27)
[2023-03-22] MEDS: Famotidine 20 MG TAB PO SCH (20:15)
[2023-03-22] MEDS: Sertraline 100 MG TAB PO SCH (20:16)
[2023-03-22] MEDS: Atorvastatin Calcium 40 MG TAB PO SCH (20:19)
[2023-03-22] MEDS: Morphine 2 MG/ML VIAL SLOW IVP PRN (20:24)
[2023-03-23] MEDS: HYDROcodone/Acetaminophen 10/325 mg Tablet PO PRN ×4 (03:12→21:13)
[2023-03-23 05:37] LABS: #Monocytes 0.5 thou/uL (0.11-0.59); #Neutrophils 18.4 thou/uL (1.40-6.50); %Basophils 0.1 % (0.0-1.0); %Eosinophils 0.1 % (0.0-10.0); %Lymphocytes 4.2 % (21.0-51.0); %Monocytes 2.7 % (0.0-10.0); %Neutrophils 92.3 % (42.0-75.0); Hematocrit 35.1 % (36.0-47.0); Hemoglobin 11.2 g/dL (12.0-16.0); Mean Corpuscular HGB CONC 31.9 g/dL (32.0-36.0); Mean Corpuscular Hemoglobin 32.4 pg (27.0-31.0); Mean Corpuscular Volume 101.4 fl (78.0-98.0); Mean Platelet Volume 10.9 fL (7.4-10.4); Platelet Count 142 10x3/uL (130-400); RBC Distribution Width 19.5 % (11.5-14.5); Red Blood Cell (RBC) Count 3.46 mill/uL (4.20-5.40); White Blood Cell (WBC) Count 19.9 10x3/uL (4.8-10.8)
[2023-03-23 05:54] LABS: Anion Gap 18 mmol/L (10-20); BUN (Urea Nitrogen) 41 mg/dL (9.8-20.1); Calc. Creatinine Clearance 8 mL/min (70-130); Calcium 8.2 mg/dL (7.8-10.44); Carbon Dioxide 22 mmol/L (23-31); Chloride 95 mmol/L (98-107); Estimated GFR 11; Glucose 73 mg/dL (80-115); Sodium 130 mmol/L (136-145)
[2023-03-23] MEDS: Morphine 2 MG/ML VIAL SLOW IVP PRN ×2 (11:42→18:07)
[2023-03-23] MEDS: hydrALAZINE 25 MG TAB PO SCH ×3 (14:09→21:13)
[2023-03-23] MEDS: Carvedilol 6.25 MG TAB PO SCH ×2 (15:59→21:19)
[2023-03-23] MEDS: Doxycycline 100 MG CAP PO SCH ×2 (15:59→21:18)
[2023-03-23] MEDS: NIFEdipine XL 90 MG ER.TAB PO SCH (15:59)
[2023-03-23] MEDS: Cefepime 1 GM in Sodium Chloride 0.9% 100 ML IVPB SCH (18:08)
[2023-03-23] MEDS: Sertraline 100 MG TAB PO SCH (21:17)
[2023-03-23] MEDS: Atorvastatin Calcium 40 MG TAB PO SCH (21:18)
[2023-03-23] MEDS: Famotidine 20 MG TAB PO SCH (21:18)
[2023-03-23] MEDS: Ondansetron ODT 4 MG TAB PO PRN (22:21)
[2023-03-24] MEDS: HYDROcodone/Acetaminophen 10/325 mg Tablet PO PRN ×4 (03:16→19:37)
[2023-03-24] MEDS: Ondansetron ODT 4 MG TAB PO PRN (06:38)
[2023-03-24 06:58] LABS: #Monocytes 0.7 thou/uL (0.11-0.59); %Basophils 0.1 % (0.0-1.0); %Eosinophils 0.2 % (0.0-10.0); %Lymphocytes 5.4 % (21.0-51.0); %Monocytes 3.5 % (0.0-10.0); %Neutrophils 90.4 % (42.0-75.0); Hematocrit 35.9 % (36.0-47.0); Hemoglobin 11.3 g/dL (12.0-16.0); Mean Corpuscular HGB CONC 31.5 g/dL (32.0-36.0); Mean Corpuscular Hemoglobin 32.7 pg (27.0-31.0); Mean Corpuscular Volume 103.8 fl (78.0-98.0); Mean Platelet Volume 11.3 fL (7.4-10.4); RBC Distribution Width 19.5 % (11.5-14.5); Red Blood Cell (RBC) Count 3.46 mill/uL (4.20-5.40); White Blood Cell (WBC) Count 18.8 10x3/uL (4.8-10.8)
[2023-03-24 06:59] LABS: Platelet Count 129 10x3/uL (130-400)
[2023-03-24 07:38] LABS: Anion Gap 16 mmol/L (10-20); BUN (Urea Nitrogen) 25 mg/dL (9.8-20.1); Calc. Creatinine Clearance 0 mL/min (70-130); Calcium 8.3 mg/dL (7.8-10.44); Carbon Dioxide 26 mmol/L (23-31); Chloride 96 mmol/L (98-107); Estimated GFR 16; Glucose 75 mg/dL (80-115); Potassium 4.7 mmol/L (3.5-5.1); Sodium 133 mmol/L (136-145)
[2023-03-24] MEDS: Doxycycline 100 MG CAP PO SCH ×2 (08:16→20:32)
[2023-03-24] MEDS: Carvedilol 6.25 MG TAB PO SCH ×2 (08:16→20:33)
[2023-03-24] MEDS: hydrALAZINE 25 MG TAB PO SCH ×3 (08:16→20:32)
[2023-03-24] MEDS: NIFEdipine XL 90 MG ER.TAB PO SCH (08:17)
[2023-03-24] MEDS ORDERED: Bisacodyl 10 MG SUPP PR PRN (15:50)
[2023-03-24] MEDS ORDERED: Polyethylene Glycol 3350 17 GM Packet PO PRN (15:50)
[2023-03-24] MEDS: Morphine 2 MG/ML VIAL SLOW IVP PRN ×2 (16:07→20:28)
[2023-03-24] MEDS: Famotidine 20 MG TAB PO SCH (20:32)
[2023-03-24] MEDS: Atorvastatin Calcium 40 MG TAB PO SCH (20:32)
[2023-03-24] MEDS: Sertraline 100 MG TAB PO SCH (20:33)
[2023-03-24] MEDS: Docusate 100 MG CAP PO SCH (20:33)
[2023-03-25] MEDS: Morphine 2 MG/ML VIAL SLOW IVP PRN ×4 (01:56→20:13)
[2023-03-25] MEDS: NIFEdipine XL 60 MG ER.TAB PO SCH (08:32)
[2023-03-25] MEDS: hydrALAZINE 25 MG TAB PO SCH ×3 (08:33→21:03)
[2023-03-25] MEDS: Doxycycline 100 MG CAP PO SCH ×2 (08:33→21:03)
[2023-03-25] MEDS: Docusate 100 MG CAP PO SCH ×2 (08:33→21:02)
[2023-03-25] MEDS: Carvedilol 6.25 MG TAB PO SCH ×2 (08:33→21:04)
[2023-03-25] MEDS ORDERED: Morphine ER 15 MG TAB PO SCH (14:15)
[2023-03-25] MEDS: Ondansetron ODT 4 MG TAB PO PRN (20:14)
[2023-03-25] MEDS: Sertraline 100 MG TAB PO SCH (21:02)
[2023-03-25] MEDS: Famotidine 20 MG TAB PO SCH (21:04)
[2023-03-25] MEDS: Atorvastatin Calcium 40 MG TAB PO SCH (21:04)
[2023-03-26] MEDS: hydrALAZINE 20 MG/ML VIAL SLOW IVP PRN ×2 (00:13→05:57)
[2023-03-26] MEDS: Morphine 2 MG/ML VIAL SLOW IVP PRN ×3 (00:14→15:38)
[2023-03-26] MEDS: Ondansetron ODT 4 MG TAB PO PRN ×2 (05:57→18:43)
[2023-03-26 07:23] LABS: Albumin 3.1 g/dL (3.4-4.8); Anion Gap 19 mmol/L (10-20); BUN (Urea Nitrogen) 50 mg/dL (9.8-20.1); BUN/Creatinine Ratio 12.08; Calc. Creatinine Clearance 9 mL/min (70-130); Calcium 8.5 mg/dL (7.8-10.44); Carbon Dioxide 23 mmol/L (23-31); Chloride 92 mmol/L (98-107); Estimated GFR 11; Glucose 79 mg/dL (80-115); Phosphorus 5.9 mg/dL (2.3-4.7); Potassium 4.9 mmol/L (3.5-5.1); Sodium 129 mmol/L (136-145)
[2023-03-26] MEDS: Carvedilol 6.25 MG TAB PO SCH ×2 (11:31→20:14)
[2023-03-26] MEDS: Morphine ER 15 MG TAB PO SCH ×2 (11:32→18:39)
[2023-03-26] MEDS: hydrALAZINE 25 MG TAB PO SCH ×3 (11:32→20:15)
[2023-03-26] MEDS: NIFEdipine XL 60 MG ER.TAB PO SCH (11:32)
[2023-03-26] MEDS: Doxycycline 100 MG CAP PO SCH (11:32)
[2023-03-26] MEDS: Docusate 100 MG CAP PO SCH ×2 (11:32→20:14)
[2023-03-26] MEDS: Sertraline 100 MG TAB PO SCH (20:14)
[2023-03-26] MEDS: Atorvastatin Calcium 40 MG TAB PO SCH (20:14)
[2023-03-26] MEDS: Famotidine 20 MG TAB PO SCH (20:15)
[2023-03-27] MEDS: hydrALAZINE 20 MG/ML VIAL SLOW IVP PRN ×2 (00:51→05:48)
[2023-03-27] MEDS ORDERED: cloNIDine 0.1 MG TAB PO PRN (08:08)
[2023-03-27] MEDS: NIFEdipine XL 60 MG ER.TAB PO SCH (08:28)
[2023-03-27] MEDS: Morphine ER 15 MG TAB PO SCH ×2 (08:28→21:07)
[2023-03-27] MEDS: Carvedilol 6.25 MG TAB PO SCH ×2 (08:28→22:25)
[2023-03-27] MEDS: Docusate 100 MG CAP PO SCH ×2 (08:28→21:10)
[2023-03-27] MEDS: hydrALAZINE 25 MG TAB PO SCH ×3 (08:29→21:09)
[2023-03-27] MEDS: HYDROcodone/Acetaminophen 5/325 mg Tablet PO PRN (16:28)
[2023-03-27] MEDS: Morphine 2 MG/ML VIAL SLOW IVP PRN (18:29)
[2023-03-27] MEDS: Atorvastatin Calcium 40 MG TAB PO SCH (21:08)
[2023-03-27] MEDS: Famotidine 20 MG TAB PO SCH (21:08)
[2023-03-27] MEDS: Sertraline 100 MG TAB PO SCH (21:09)
[2023-03-28] MEDS: Morphine 2 MG/ML VIAL SLOW IVP PRN ×4 (00:05→17:09)
[2023-03-28] MEDS: Ondansetron ODT 4 MG TAB PO PRN ×2 (00:10→18:33)
[2023-03-28 04:59] LABS: #Monocytes 0.5 thou/uL (0.11-0.59); #Neutrophils 18.7 thou/uL (1.40-6.50); %Basophils 0.1 % (0.0-1.0); %Eosinophils 0.1 % (0.0-10.0); %Lymphocytes 3.5 % (21.0-51.0); %Monocytes 2.6 % (0.0-10.0); %Neutrophils 93.1 % (42.0-75.0); Hematocrit 36.3 % (36.0-47.0); Hemoglobin 11.4 g/dL (12.0-16.0); Mean Corpuscular HGB CONC 31.4 g/dL (32.0-36.0); Mean Corpuscular Hemoglobin 32.4 pg (27.0-31.0); Mean Corpuscular Volume 103.1 fl (78.0-98.0); Mean Platelet Volume 11.5 fL (7.4-10.4); Platelet Count 92 10x3/uL (130-400); RBC Distribution Width 19.2 % (11.5-14.5); Red Blood Cell (RBC) Count 3.52 mill/uL (4.20-5.40); White Blood Cell (WBC) Count 20.1 10x3/uL (4.8-10.8)
[2023-03-28 05:18] LABS: Anion Gap 17 mmol/L (10-20); BUN (Urea Nitrogen) 38 mg/dL (9.8-20.1); Calc. Creatinine Clearance 13 mL/min (70-130); Calcium 8.6 mg/dL (7.8-10.44); Carbon Dioxide 27 mmol/L (23-31); Chloride 94 mmol/L (98-107); Estimated GFR 16; Glucose 100 mg/dL (80-115); Potassium 4.7 mmol/L (3.5-5.1); Sodium 133 mmol/L (136-145)
[2023-03-28] MEDS: Docusate 100 MG CAP PO SCH ×2 (07:50→21:57)
[2023-03-28] MEDS: Morphine ER 15 MG TAB PO SCH ×2 (07:51→21:43)
[2023-03-28] MEDS: hydrALAZINE 25 MG TAB PO SCH ×3 (12:49→21:46)
[2023-03-28] MEDS: NIFEdipine XL 60 MG ER.TAB PO SCH (12:49)
[2023-03-28] MEDS: Carvedilol 6.25 MG TAB PO SCH ×2 (12:50→21:48)
[2023-03-28] MEDS ORDERED: Ondansetron PF 4 MG/2 ML Vial IVP PRN (17:32)
[2023-03-28] MEDS ORDERED: Ondansetron ORAL SOLN. 4 MG/5 ML UDCUP PO PRN (17:32)
[2023-03-28] MEDS: Atorvastatin Calcium 40 MG TAB PO SCH (21:48)
[2023-03-28] MEDS: Sertraline 100 MG TAB PO SCH (21:50)
[2023-03-28] MEDS: Famotidine 20 MG TAB PO SCH (21:56)
[2023-03-29] MEDS: Morphine 2 MG/ML VIAL SLOW IVP PRN ×2 (03:21→10:35)
[2023-03-29] MEDS: Morphine ER 15 MG TAB PO SCH ×2 (08:55→20:14)
[2023-03-29] MEDS: Docusate 100 MG CAP PO SCH ×2 (08:55→20:12)
[2023-03-29] MEDS: NIFEdipine XL 60 MG ER.TAB PO SCH (08:55)
[2023-03-29] MEDS: Carvedilol 6.25 MG TAB PO SCH ×2 (08:55→20:12)
[2023-03-29] MEDS: hydrALAZINE 25 MG TAB PO SCH ×3 (08:56→20:06)
[2023-03-29] MEDS: Dextrose 5% in Water 1,000 ML IV SCH (13:51)
[2023-03-29] MEDS: Sertraline 100 MG TAB PO SCH (20:12)
[2023-03-29] MEDS: Famotidine 20 MG TAB PO SCH (20:16)
[2023-03-29] MEDS: Atorvastatin Calcium 40 MG TAB PO SCH (20:16)
[2023-03-29] MEDS ORDERED: Mirtazapine 15 MG TAB PO SCH (21:00)
[2023-03-29] MEDS ORDERED: Dextrose 5% in Water 1,000 ML IV SCH (22:15)
[2023-03-30 09:23] LABS: Anion Gap 14 mmol/L (10-20); BUN (Urea Nitrogen) 27 mg/dL (9.8-20.1); Calc. Creatinine Clearance 17 mL/min (70-130); Calcium 8.2 mg/dL (7.8-10.44); Carbon Dioxide 26 mmol/L (23-31); Chloride 89 mmol/L (98-107); Estimated GFR 22; Glucose 80 mg/dL (80-115); Potassium 4.6 mmol/L (3.5-5.1); Sodium 124 mmol/L (136-145)
[2023-03-30] MEDS: Dextrose 5% in Water 1,000 ML IV SCH (09:57)
[2023-03-30] MEDS: NIFEdipine XL 60 MG ER.TAB PO SCH (10:56)
[2023-03-30] MEDS: Docusate 100 MG CAP PO SCH ×2 (10:56→21:03)
[2023-03-30] MEDS: hydrALAZINE 25 MG TAB PO SCH ×3 (10:56→21:01)
[2023-03-30] MEDS: Carvedilol 6.25 MG TAB PO SCH ×2 (10:56→21:02)
[2023-03-30] MEDS: Morphine ER 15 MG TAB PO SCH ×2 (10:57→21:04)
[2023-03-30 16:31] LABS: #Monocytes 0.8 thou/uL (0.11-0.59); %Basophils 0.1 % (0.0-1.0); %Eosinophils 0.1 % (0.0-10.0); %Lymphocytes 2.8 % (21.0-51.0); %Monocytes 3.4 % (0.0-10.0); %Neutrophils 93.2 % (42.0-75.0); Hematocrit 35.9 % (36.0-47.0); Hemoglobin 11.5 g/dL (12.0-16.0); Mean Corpuscular Hemoglobin 33.2 pg (27.0-31.0); Mean Corpuscular Volume 103.8 fl (78.0-98.0); Mean Platelet Volume 12.9 fL (7.4-10.4); RBC Distribution Width 18.3 % (11.5-14.5); Red Blood Cell (RBC) Count 3.46 mill/uL (4.20-5.40); White Blood Cell (WBC) Count 22.5 10x3/uL (4.8-10.8)
[2023-03-30 16:34] LABS: Platelet Count 73 10x3/uL (130-400)
[2023-03-30] MEDS: Famotidine 20 MG TAB PO SCH (21:00)
[2023-03-30] MEDS: Sertraline 100 MG TAB PO SCH (21:02)
[2023-03-30] MEDS: Atorvastatin Calcium 40 MG TAB PO SCH (21:03)
[2023-03-31] MEDS: Dextrose 5% in Water 1,000 ML IV SCH (00:47)
[2023-03-31] MEDS: Carvedilol 6.25 MG TAB PO SCH ×3 (05:07→21:32)
[2023-03-31] MEDS: Docusate 100 MG CAP PO SCH ×3 (05:10→21:32)
[2023-03-31] MEDS: Atorvastatin Calcium 40 MG TAB PO SCH ×2 (05:10→21:32)
[2023-03-31] MEDS: hydrALAZINE 25 MG TAB PO SCH ×4 (05:10→21:32)
[2023-03-31] MEDS: Famotidine 20 MG TAB PO SCH ×2 (05:10→21:32)
[2023-03-31] MEDS: Sertraline 100 MG TAB PO SCH ×2 (05:11→21:31)
[2023-03-31 08:19] LABS: #Monocytes 0.7 thou/uL (0.11-0.59); #Neutrophils 19.2 thou/uL (1.40-6.50); %Basophils 0.1 % (0.0-1.0); %Lymphocytes 3.7 % (21.0-51.0); %Monocytes 3.3 % (0.0-10.0); %Neutrophils 92.6 % (42.0-75.0); Hematocrit 32.1 % (36.0-47.0); Hemoglobin 10.3 g/dL (12.0-16.0); Mean Corpuscular HGB CONC 32.1 g/dL (32.0-36.0); Mean Corpuscular Hemoglobin 33.4 pg (27.0-31.0); Mean Corpuscular Volume 104.2 fl (78.0-98.0); Mean Platelet Volume 11.9 fL (7.4-10.4); Red Blood Cell (RBC) Count 3.08 mill/uL (4.20-5.40); White Blood Cell (WBC) Count 20.8 10x3/uL (4.8-10.8)
[2023-03-31 08:40] LABS: Anion Gap 16 mmol/L (10-20); BUN (Urea Nitrogen) 30 mg/dL (9.8-20.1); Calc. Creatinine Clearance 18 mL/min (70-130); Calcium 7.9 mg/dL (7.8-10.44); Carbon Dioxide 22 mmol/L (23-31); Chloride 90 mmol/L (98-107); Estimated GFR 23; Glucose 83 mg/dL (80-115); Potassium 4.6 mmol/L (3.5-5.1); Sodium 123 mmol/L (136-145)
[2023-03-31 08:49] LABS: Platelet Count 62 10x3/uL (130-400)
[2023-03-31] MEDS: Morphine ER 15 MG TAB PO SCH ×2 (10:57→21:31)
[2023-03-31] MEDS: NIFEdipine XL 60 MG ER.TAB PO SCH (11:00)
[2023-03-31] MEDS: Dextrose 5 % And 0.9 % NaCl 1,000 ML IV SCH (18:29)
[2023-03-31] MEDS: Megestrol Acetate 40 MG TAB PO SCH (21:32)
[2023-04-01 05:35] LABS: #Monocytes 0.6 thou/uL (0.11-0.59); #Neutrophils 18.5 thou/uL (1.40-6.50); %Basophils 0.1 % (0.0-1.0); %Lymphocytes 3.6 % (21.0-51.0); %Monocytes 3.2 % (0.0-10.0); %Neutrophils 92.6 % (42.0-75.0); Hematocrit 30.9 % (36.0-47.0); Mean Corpuscular HGB CONC 32.4 g/dL (32.0-36.0); Mean Platelet Volume 12.5 fL (7.4-10.4); RBC Distribution Width 17.5 % (11.5-14.5); Red Blood Cell (RBC) Count 3.03 mill/uL (4.20-5.40)
[2023-04-01 05:39] LABS: Platelet Count 52 10x3/uL (130-400)
[2023-04-01 05:57] LABS: Anion Gap 14 mmol/L (10-20); BUN (Urea Nitrogen) 39 mg/dL (9.8-20.1); Calc. Creatinine Clearance 16 mL/min (70-130); Calcium 8.1 mg/dL (7.8-10.44); Carbon Dioxide 24 mmol/L (23-31); Chloride 90 mmol/L (98-107); Estimated GFR 20; Glucose 72 mg/dL (80-115); Potassium 4.5 mmol/L (3.5-5.1); Sodium 123 mmol/L (136-145)
[2023-04-01] MEDS: Morphine ER 15 MG TAB PO SCH (09:23)
[2023-04-01] MEDS: hydrALAZINE 25 MG TAB PO SCH ×3 (09:24→22:01)
[2023-04-01] MEDS: Docusate 100 MG CAP PO SCH ×2 (09:25→22:02)
[2023-04-01] MEDS: Carvedilol 6.25 MG TAB PO SCH ×2 (09:25→22:01)
[2023-04-01] MEDS: Megestrol Acetate 40 MG TAB PO SCH ×2 (09:25→22:02)
[2023-04-01] MEDS: Loratadine 10 MG TAB PO SCH (09:25)
[2023-04-01] MEDS: NIFEdipine XL 60 MG ER.TAB PO SCH (09:25)
[2023-04-01] MEDS: Dextrose 5 % And 0.9 % NaCl 1,000 ML IV SCH (13:53)
[2023-04-01] MEDS ORDERED: HYDROcodone/Acetaminophen 5/325 mg Tablet PO PRN (17:17)
[2023-04-01] MEDS: Atorvastatin Calcium 40 MG TAB PO SCH (22:00)
[2023-04-01] MEDS: Famotidine 20 MG TAB PO SCH (22:00)
[2023-04-01] MEDS: Sertraline 100 MG TAB PO SCH (22:02)
[2023-04-02] MEDS: NIFEdipine XL 60 MG ER.TAB PO SCH (08:21)
[2023-04-02] MEDS: Docusate 100 MG CAP PO SCH ×2 (08:21→20:41)
[2023-04-02] MEDS: Loratadine 10 MG TAB PO SCH (08:21)
[2023-04-02] MEDS: Megestrol Acetate 40 MG TAB PO SCH ×2 (08:21→20:42)
[2023-04-02] MEDS: Carvedilol 6.25 MG TAB PO SCH ×2 (08:21→20:41)
[2023-04-02 11:14] LABS: #Monocytes 0.4 thou/uL (0.11-0.59); #Neutrophils 15.4 thou/uL (1.40-6.50); %Basophils 0.2 % (0.0-1.0); %Lymphocytes 2.6 % (21.0-51.0); %Monocytes 2.6 % (0.0-10.0); %Neutrophils 94.2 % (42.0-75.0); Hematocrit 27.6 % (36.0-47.0); Hemoglobin 9.1 g/dL (12.0-16.0); Mean Platelet Volume 11.4 fL (7.4-10.4); RBC Distribution Width 17.1 % (11.5-14.5); Red Blood Cell (RBC) Count 2.76 mill/uL (4.20-5.40); White Blood Cell (WBC) Count 16.4 10x3/uL (4.8-10.8)
[2023-04-02 11:20] LABS: Platelet Count 44 10x3/uL (130-400)
[2023-04-02 11:47] LABS: Anion Gap 8 mmol/L (10-20); BUN (Urea Nitrogen) 14 mg/dL (9.8-20.1); Calc. Creatinine Clearance 47 mL/min (70-130); Calcium 7.6 mg/dL (7.8-10.44); Carbon Dioxide 30 mmol/L (23-31); Chloride 98 mmol/L (98-107); Estimated GFR 76; Glucose 77 mg/dL (80-115); Potassium 2.8 mmol/L (3.5-5.1); Sodium 133 mmol/L (136-145)
[2023-04-02] MEDS: Dextrose 5 % And 0.9 % NaCl 1,000 ML IV SCH (13:39)
[2023-04-02] MEDS: Potassium Chloride 20 MEQ in Premix 1 BAG IVPB SCH ×2 (13:40→16:46)
[2023-04-02] MEDS ORDERED: Potassium Chloride 40 MEQ in Premix 1 BAG IVPB SCH (14:00)
[2023-04-02] MEDS: Atorvastatin Calcium 40 MG TAB PO SCH (20:41)
[2023-04-02] MEDS: Sertraline 100 MG TAB PO SCH (20:42)
[2023-04-02] MEDS: Famotidine 20 MG TAB PO SCH (20:42)
[2023-04-03] MEDS: Dextrose 5 % And 0.9 % NaCl 1,000 ML IV SCH ×2 (03:48→21:47)
[2023-04-03 06:20] LABS: #Monocytes 0.6 thou/uL (0.11-0.59); #Neutrophils 16.8 thou/uL (1.40-6.50); %Basophils 0.1 % (0.0-1.0); %Lymphocytes 3.2 % (21.0-51.0); %Monocytes 3.4 % (0.0-10.0); %Neutrophils 92.9 % (42.0-75.0); Hematocrit 30.5 % (36.0-47.0); Hemoglobin 9.6 g/dL (12.0-16.0); Mean Corpuscular HGB CONC 31.5 g/dL (32.0-36.0); Mean Corpuscular Hemoglobin 32.5 pg (27.0-31.0); Mean Platelet Volume 12.3 fL (7.4-10.4); RBC Distribution Width 17.5 % (11.5-14.5); Red Blood Cell (RBC) Count 2.95 mill/uL (4.20-5.40); White Blood Cell (WBC) Count 18.1 10x3/uL (4.8-10.8)
[2023-04-03 06:21] LABS: Platelet Count 50 10x3/uL (130-400)
[2023-04-03 06:22] LABS: Mean Corpuscular Volume 103.4 fl (78.0-98.0)
[2023-04-03 06:47] LABS: Anion Gap 12 mmol/L (10-20); BUN (Urea Nitrogen) 27 mg/dL (9.8-20.1); Calc. Creatinine Clearance 27 mL/min (70-130); Calcium 7.8 mg/dL (7.8-10.44); Carbon Dioxide 25 mmol/L (23-31); Chloride 99 mmol/L (98-107); Estimated GFR 34; Glucose 89 mg/dL (80-115); Magnesium 1.9 mg/dL (1.6-2.6); Potassium 4.1 mmol/L (3.5-5.1); Sodium 132 mmol/L (136-145)
[2023-04-03] MEDS: NIFEdipine XL 60 MG ER.TAB PO SCH (09:23)
[2023-04-03] MEDS: Docusate 100 MG CAP PO SCH ×2 (09:23→21:43)
[2023-04-03] MEDS: Carvedilol 6.25 MG TAB PO SCH ×2 (09:23→21:39)
[2023-04-03] MEDS: Megestrol Acetate 40 MG TAB PO SCH ×2 (09:23→21:44)
[2023-04-03] MEDS: Loratadine 10 MG TAB PO SCH (09:23)
[2023-04-03 12:11] VITALS: BMI 22.6
[2023-04-03] MEDS: Atorvastatin Calcium 40 MG TAB PO SCH (21:39)
[2023-04-03] MEDS: Famotidine 20 MG TAB PO SCH (21:45)
[2023-04-03] MEDS: Sertraline 100 MG TAB PO SCH (21:46)
[2023-04-04] MEDS: Carvedilol 6.25 MG TAB PO SCH (08:05)
[2023-04-04] MEDS: Docusate 100 MG CAP PO SCH (08:05)
[2023-04-04] MEDS: Megestrol Acetate 40 MG TAB PO SCH (08:06)
[2023-04-04] MEDS: Loratadine 10 MG TAB PO SCH (08:06)
[2023-04-04] MEDS: NIFEdipine XL 60 MG ER.TAB PO SCH (08:06)
[2023-04-04 09:41] LABS: #Monocytes 0.6 thou/uL (0.11-0.59); #Neutrophils 15.6 thou/uL (1.40-6.50); %Basophils 0.2 % (0.0-1.0); %Lymphocytes 3.9 % (21.0-51.0); %Monocytes 3.3 % (0.0-10.0); %Neutrophils 92.1 % (42.0-75.0); Hemoglobin 9.9 g/dL (12.0-16.0); Mean Corpuscular HGB CONC 31.9 g/dL (32.0-36.0); Mean Corpuscular Hemoglobin 32.8 pg (27.0-31.0); Mean Corpuscular Volume 102.6 fl (78.0-98.0); Mean Platelet Volume 11.3 fL (7.4-10.4); RBC Distribution Width 17.6 % (11.5-14.5); Red Blood Cell (RBC) Count 3.02 mill/uL (4.20-5.40); White Blood Cell (WBC) Count 16.9 10x3/uL (4.8-10.8)
[2023-04-04 10:00] LABS: Anion Gap 12 mmol/L (10-20); BUN (Urea Nitrogen) 40 mg/dL (9.8-20.1); Calc. Creatinine Clearance 23 mL/min (70-130); Calcium 7.7 mg/dL (7.8-10.44); Carbon Dioxide 25 mmol/L (23-31); Chloride 101 mmol/L (98-107); Estimated GFR 26; Glucose 61 mg/dL (80-115); Potassium 4.5 mmol/L (3.5-5.1); Sodium 133 mmol/L (136-145)
[2023-04-04 10:04] LABS: Platelet Count 57 10x3/uL (130-400)
[2023-04-04] MEDS ORDERED: Dextrose 50% Abboject 50 ML SYRINGE SLOW IVP PRN (12:40)
[2023-04-04] MEDS ORDERED: Dextrose 5 % And 0.9 % NaCl 1,000 ML IV SCH (12:41)
[2023-04-04] MEDS ORDERED: Dextrose 10% in Water 1,000 ML IV SCH (12:45)
[2023-04-04] MEDS ORDERED: Dextrose 25% Abboject 10 ML SYRINGE SLOW IVP SCH (12:45)
[2023-04-04] MEDS ORDERED: Morphine ER 15 MG TAB PO SCH ×2 (15:00→21:00)
[2023-04-04 17:11] VITALS: BP 170/63; TEMP 97.3
== END 2023-04-04 19:25 | disposition home or self-care (01) | DRG 166 ==
LOC: ERS 15:19 → IMCU/EMU 18:52 → SURG B 03-22 16:00
PROVIDERS: ADMIT Internal Medicine; ATTEND Family Medicine
PROC: 0JH60WZ Insertion of Totally Implantable Vascular Access Device into Chest Subcutaneous Tissue and Fascia, Open Approach (ICD-10-PCS; principal; 2023-03-19)
DX: J69.0 Pneumonitis due to inhalation of food and vomit (principal); E43 Unspecified severe protein-calorie malnutrition; N18.6 End stage renal disease; I21.A1 Myocardial infarction type 2; I13.2 Hypertensive heart and chronic kidney disease with heart failure and with stage 5 chronic kidney disease, or end stage renal disease; I50.22 Chronic systolic (congestive) heart failure; E87.1 Hypo-osmolality and hyponatremia; E87.5 Hyperkalemia; Z66 Do not resuscitate; Z51.5 Encounter for palliative care; E11.22 Type 2 diabetes mellitus with diabetic chronic kidney disease; F41.9 Anxiety disorder, unspecified; F32.A Depression, unspecified; C52 Malignant neoplasm of vagina; J44.9 Chronic obstructive pulmonary disease, unspecified; E87.6 Hypokalemia; D63.1 Anemia in chronic kidney disease; R53.1 Weakness; D72.829 Elevated white blood cell count, unspecified; R53.81 Other malaise; E11.649 Type 2 diabetes mellitus with hypoglycemia without coma; C53.9 Malignant neoplasm of cervix uteri, unspecified; Z90.49 Acquired absence of other specified parts of digestive tract; Z99.2 Dependence on renal dialysis; Z91.158 Patient's noncompliance with renal dialysis for other reason; Z79.899 Other long term (current) drug therapy; Z98.51 Tubal ligation status; Z95.1 Presence of aortocoronary bypass graft; Z68.23 Body mass index [BMI] 23.0-23.9, adult
CPT/HCPCS: 36415; 36416; 70450; 71045; 71260; 72125; 74177; 80048; 80053; 80069; 82378; 82550; 83036; 83605; 83690; 83735; 83970; 84100; 84145; 84484; 85025; 85610; 85730; 86304; 87040; 90935; 93005; 94760; 96365; 96375; C1788; G0257; J0171; J0360; J0612; J0692; J1642; J1815; J2001; J2272; J2704; J3010; J3480; J3490; J7042; J7070; Q0162; Q9967; S0020; S0179

== ENCOUNTER 2023-04-04 19:26 | Inpatient (IN) | payer MEDICAID, MEDICARE, OTHER ==
[2023-04-04] MEDS ORDERED: Lorazepam 2 MG/ML VIAL SLOW IVP PRN ×2 (20:00)
[2023-04-04] MEDS ORDERED: Scopolamine 1 mg/72 hour Patch TOP PRN (20:00)
[2023-04-04] MEDS ORDERED: Ondansetron PF 4 MG/2 ML Vial IVP PRN (20:00)
[2023-04-04] MEDS ORDERED: Morphine 4 MG/ML VIAL SLOW IVP PRN (20:01)
[2023-04-04] MEDS: Morphine 4 MG/ML VIAL SLOW IVP SCH ×2 (20:30→23:42)
[2023-04-04 20:50] VITALS: BMI 16.6
[2023-04-04 21:11] VITALS: BP 165/97; TEMP 97.3
== END 2023-04-04 23:10 | disposition expired | DRG 951 ==
LOC: SURG B 19:26
PROVIDERS: ADMIT Family Medicine; ATTEND Family Medicine
DX: Z51.5 Encounter for palliative care (principal); J18.9 Pneumonia, unspecified organism; N18.6 End stage renal disease; I21.4 Non-ST elevation (NSTEMI) myocardial infarction; I50.22 Chronic systolic (congestive) heart failure; I13.2 Hypertensive heart and chronic kidney disease with heart failure and with stage 5 chronic kidney disease, or end stage renal disease; F41.9 Anxiety disorder, unspecified; F32.A Depression, unspecified; E87.5 Hyperkalemia; E11.22 Type 2 diabetes mellitus with diabetic chronic kidney disease
CPT/HCPCS: J2270